=== PATIENT | male | born 1945 | race Caucasian/White ===

== ENCOUNTER 2018-03-04 08:49 | Inpatient (IN) | payer OTHER, MEDICARE ==
[2018-03-04 09:08] LABS: ABSOLUTE BASOPHILS # (AUTO) 0.1 10^3/uL (0.0-0.2); ABSOLUTE EOSINOPHILS # (AUTO) 0.1 10^3/uL (0.0-0.6); ABSOLUTE LYMPHOCYTES (AUTO) 0.8 10^3/uL (0.5-4.7); ABSOLUTE MONOCYTES (AUTO) 0.9 10^3/uL (0.1-1.4); ABSOLUTE NEUT (AUTO) 5.2 10^3/uL (1.7-8.2); EOSINOPHILS % (AUTO) 1.4 % (0-6); HEMATOCRIT 43.7 % (37.9-51.0); HEMOGLOBIN 15.4 g/dL (13.5-17.0); LYMPHOCYTES % (AUTO) 11.3 % (13-45); MEAN CORPUSCULAR HEMOGLOBIN 31.9 pg (27.0-33.4); MEAN CORPUSCULAR HGB CONC 35.2 g/dL (32.0-36.0); MEAN CORPUSCULAR VOLUME 91 fl (80-97); MONOCYTES % (AUTO) 13.2 % (3-13); PLATELET COUNT 360 10^3/uL (150-450); RED BLOOD COUNT 4.82 10^6/uL (4.35-5.55); RED CELL DISTRIBUTION WIDTH 14.5 % (11.5-14.0); SEGMENTED NEUTROPHILS % (AUTO) 73.1 % (42-78); TOTAL CELLS COUNTED % (AUTO) 100 %; WHITE BLOOD COUNT 7.1 10^3/uL (4.0-10.5)
--- NOTE | 2018-03-04 09:28 | RADIOLOGY REPORT (SQ) ---
EXAM DESCRIPTION: CHEST SINGLE VIEW COMPLETED DATE/TIME: 03/04/2018 9:06 am REASON FOR STUDY: bed 11 db COMPARISON: None. EXAM PARAMETERS: NUMBER OF VIEWS: One view. TECHNIQUE: Single frontal radiographic view of the chest acquired. RADIATION DOSE: NA LIMITATIONS: None. FINDINGS: LUNGS AND PLEURA: Increased interstitial markings in the mid and lower lungs could represe nt interstitial edema. Underlying pulmonary fibrosis could not be excluded. No pleural effusion. No pneumothorax. No dense consolidation worrisome for pneumonia. MEDIASTINUM AND HILAR STRUCTURES: No masses. Contour normal. HEART AND VASCULAR STRUCTURES: Mild cardiomegaly BONES: No acute findings. HARDWARE: None in the chest. OTHER: No other significant finding. IMPRESSION: Increased interstitial markings around the periphery of both lung bases. This could be due to pulmonary fibrosis rather than interstitial pulmonary edema. TECHNICAL DOCUMENTATION: JOB ID: [id number] [employer]- All Rights Reserved Reading location - IP/workstation name: [email or web address]
[2018-03-04 09:35] LABS: ALANINE AMINOTRANSFERASE 113 U/L (21-72); ALBUMIN 4.2 g/dL (3.5-5.0); ALKALINE PHOSPHATASE 120 U/L (38-126); ANION GAP 13 (5-19); ASPARTATE AMINO TRANSFERASE 69 U/L (17-59); BILIRUBIN,DIRECT 0.6 mg/dL (0.0-0.4); BILIRUBIN,TOTAL 0.6 mg/dL (0.2-1.3); BLOOD UREA NITROGEN 22 mg/dL (7-20); CALCIUM 9.7 mg/dL (8.4-10.2); CARBON DIOXIDE 23 mmol/L (22-30); CHLORIDE 96 mmol/L (98-107); CREATINE KINASE 258 U/L (55-170); GLUCOSE 128 mg/dL (75-110); POTASSIUM 4.2 mmol/L (3.6-5.0); SODIUM 131.9 mmol/L (137-145); TOTAL PROTEIN 9.2 g/dL (6.3-8.2)
[2018-03-04 09:47] LABS: CREATINE KINASE MB 3.06 ng/mL (<4.55); TROPONIN I 0.029 ng/mL
[2018-03-04] MEDS ORDERED: CEFTRIAXONE INJ 1000 MG VIAL IV ONE (10:48)
--- NOTE | 2018-03-04 10:49 | ER Document Report ---
ED Respiratory Problem - General Chief Complaint: Shortness Of Breath Stated Complaint: RESPIRATORY DISTRESS Time Seen by Provider: 03/04/18 10:37 Notes: Patient is here because she is having difficulty breathing and feeling short of breath. Patient says he has a history of COPD that was diagnosed about 7 years ago. He has been prescribed a Proventil inhaler, but says he is never used it. For the past 2-3 months he has been having increasing difficulty breathing and shortness of breath. He went to his local provider, the [place] [facility], who prescribed him a second inhaler to use once a day and he started that on Saturday , 4 days ago. His breathing has worsened. He has a cough with some congestion , mostly at night. Patient says he stopped smoking just 3 days ago. Denies any fever. Patient does not have a history of heart disease or heart failure although he does have high blood pressure. EMS noted when they arrived at the patient's home that his O2 sat was 91%, but when he got up to walk it went to 89%. When he arrived here, after having been on oxygen in route, his oxygen level was 90-92 %. And on 2 L, his oxygen level is in the mid 90s. - Related Data Allergies/Adverse Reactions: No Known Allergies Allergy (Unverified 03/04/18 08:57) Past Medical History - Social History Smoking Status: Former Smoker - Stopped 3 days ago. Chew tobacco use (# tins/day): No Frequency of alcohol use: None Drug Abuse: None Family History: Reviewed & Not Pertinent Patient has suicidal ideation: No Patient has homicidal ideation: No - Past Medical History Cardiac Medical History: Reports: Hx Hypertension Denies: Hx Atrial Fibrillation, Hx Congestive Heart Failure Pulmonary Medical History: Reports: Hx COPD Endocrine Medical History: Denies: Hx Diabetes Mellitus Type 1, Hx Diabetes Mellitus Type 2 Surgical Hx: Negative Review of Systems - Review of Systems Notes: REVIEW OF SYSTEMS: CONSTITUTIONAL : Denies fever. EENT: Denies eye, ear, nose or mouth or throat pain or other symptoms. CARDIOVASCULAR: Denies chest pain. No ankle or pretibial swelling. RESPIRATORY: See HPI. GASTROINTESTINAL: Denies abdominal pain or nausea, vomiting, or diarrhea. GENITOURINARY: Denies difficulty or painful urinating, urinary frequency, blood in urine. MUSCULOSKELETAL: Denies back or neck pain. Denies joint pain or swelling. No lower leg pain. SKIN: Denies rash or skin lesions. NEUROLOGICAL: Denies LOC or altered mental status. Denies headache. Denies sensory loss or motor deficits. ALL OTHER SYSTEMS REVIEWED AND NEGATIVE. Physical Exam - Vital signs Vitals: Pulse Ox 90 L 03/04/18 08:53 Interpretation: Hypoxic - Notes Notes: PHYSICAL EXAMINATION: GENERAL: Well-appearing, in no acute distress. O2 sat 90-92% on 2 L here. Had also been on O2 by EMS in transit here. HEAD: Atraumatic, normocephalic. EYES: Pupils equal round and reactive to light, extraocular movements intact. ENT: oropharynx clear without exudates. Moist mucous membranes. NECK: Normal range of motion, supple. LUNGS: Breath sounds with good air exchange bilaterally. Scattered rales and rhonchi and wheezes heard bilaterally, but primarily on the right side posteriorly. HEART: Regular rate and rhythm without murmurs. ABDOMEN: Soft, nontender. No guarding or rebound. No masses. BACK: No tenderness throughout entire back. EXTREMITIES: Normal range of motion without pain. Negative Homans bilaterally. No pretibial edema bilaterally. NEUROLOGICAL: Normal speech, normal gait. Normal sensory, motor, and reflex exams. Awake, alert, and oriented x3. Cranial nerves normal. PSYCH: Normal mood, normal affect. SKIN: Warm, dry, no rashes. Course - Re-evaluation Re-evalutation: 03/04/18 11:40 Discussed with hospitalist who will admit the patient for observation and nebulizer treatments for his hypoxia. - Vital Signs Vital signs: Temp Pulse Resp BP Pulse Ox 97.4 F 95 20 115/80 93 03/04/18 09:00 03/04/18 14:59 03/04/18 17:01 03/04/18 17:01 03/04/18 17:01 - Laboratory Result Diagrams: 03/04/18 08:20 03/04/18 08:20 Laboratory results interpreted by me: 03/04/18 03/04/18 08:20 08:20 RDW 14.5 H Lymphocytes % 11.3 L Monocytes % 13.2 H Sodium 131.9 L Chloride 96 L BUN 22 H Glucose 128 H Direct Bilirubin 0.6 H AST 69 H ALT 113 H Creatine Kinase 258 H Total Protein 9.2 H - Diagnostic Test Radiology results interpreted by me: 03/04/18 11:05 Chest x-ray shows increased interstitial markings in the mid and lower lungs which could represent interstitial edema. Pulmonary fibrosis is also a possibility. No prior x-rays are available for comparison. - EKG Interpretation by Wi EKG shows normal: Sinus rhythm Rate: Normal Rhythm: NSR Additional EKG results interpreted by me: 03/04/18 11:05 Patient has Q waves in the inferior leads suggestive of an age indeterminate posterior injury. Discharge - Discharge Clinical Impression: Dyspnea, COPD exacerbation, Hypoxia Condition: Stable Disposition: ADMITTED OBSERVATION Admitting Provider: Hospitalist Unit Admitted: Medical Floor
[2018-03-04] MEDS ORDERED: IPRATROPIUM/ALBUTEROL 0.5-2.5 MG/3 ML AMPUL NEB ONE ×2 (11:09→13:32)
[2018-03-04] MEDS ORDERED: METHYLPREDNISOLONE INJ 125 MG/2 ML SDV IV ONE (11:14)
[2018-03-04 12:25] LABS: APPEARANCE,URINE CLEAR; BILIRUBIN,URINE NEGATIVE (NEGATIVE); COLOR,URINE YELLOW; GLUCOSE, URINE NEGATIVE (NEGATIVE); KETONES,URINE NEGATIVE (NEGATIVE); LEUKOCYTE ESTERASE,URINE NEGATIVE (NEGATIVE); NITRITE,URINE NEGATIVE (NEGATIVE); PROTEIN,URINE NEGATIVE (NEGATIVE); URINE SPECIFIC GRAVITY 1.013
[2018-03-04] MEDS ORDERED: LEVALBUTEROL HCL NEB 0.63 MG/3 ML AMPUL NEB PRN (13:33)
[2018-03-04] MEDS: IPRATROPIUM/ALBUTEROL 0.5-2.5 MG/3 ML AMPUL NEB SCH ×2 (14:59→20:10)
[2018-03-04] MEDS ORDERED: ENOXAPARIN SODIUM INJ 30 MG/0.3 ML DISP.SYRIN SUBCUT ONE (15:00)
--- NOTE | 2018-03-04 15:37 | RADIOLOGY REPORT (SQ) ---
EXAM DESCRIPTION: CT CHEST WITHOUT COMPLETED DATE/TIME: 03/04/2018 2:39 pm REASON FOR STUDY: evaluate interstitial lung disease COMPARISON: Chest x-ray 03/04/2018 TECHNIQUE: CT scan performed of the chest without intravenous contrast. Images reviewed with lung, soft tissue and bone windows. Reconstructed coronal and sagittal MPR images reviewed. All images st ored on PACS. All CT scanners at this facility use dose modulation, iterative reconstruction, and/or weight based d osing when appropriate to reduce radiation dose to as low as reasonably achievable (ALARA). [facility]: Dose Right [facility]: CareDose [facility]: Dose Right [facility]: Teradose 4D [facility]: Smart Pneumoflex Systems RADIATION DOSE: CT Rad equipment meets quality standard of care and radiation dose reduction techniq ues were employed. CTDIvol: 11.1 mGy. DLP: 414 mGy-cm. mGy. LIMITATIONS: No technical limitations. FINDINGS: LUNGS AND PLEURA: Chronic interstitial changes most prominent peripherally and in the lung bases. There are some small pneumatoceles in the lower lobes. HILAR AND MEDIASTINAL STRUCTURES: There are scattered small mediastinal and hilar nodes with no true adenopathy. HEART AND VASCULAR STRUCTURES: No aneurysm. No pericardial effusion. Considerable coronary atherosc lerosis. UPPER ABDOMEN: No significant findings. Limited exam. THYROID AND OTHER SOFT TISSUES: No masses. No adenopathy. BONES: No significant finding. HARDWARE: None in the chest. OTHER: No other significant findings. 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 No acute c ardiopulmonary disease. TECHNICAL DOCUMENTATION: JOB ID: [id number] Quality ID # [id number]: Final reports with documentation of one or more dose reduction techniques (e.g., Au tomated exposure control, adjustment of the mA and/or kV according to patient size, use of iterative reconstruction technique) 2010 [employer]- All Rights Reserved Reading location - IP/workstation name: [email or web address]
[2018-03-04] MEDS: METHYLPREDNISOLONE INJ 40 MG/1 ML SDV IV SCH ×2 (18:59→23:27)
[2018-03-04] MEDS: TIOTROPIUM BROMIDE DPI 5 CAP/KIT (18 MCG/CAP) IH SCH (19:21)
[2018-03-04] MEDS ORDERED: ATENOLOL 50 MG TABLET PO ONE (20:00)
[2018-03-04] MEDS: SALMETEROL XINAFOATE DISKUS 50 MCG/1 DOSE 28 DOSE IH SCH (21:59)
[2018-03-04] MEDS: DOXYCYCLINE HYCLATE 100 MG TABLET PO SCH (22:00)
--- NOTE | 2018-03-04 23:37 | EKG REPORT ---
SEVERITY:- ABNORMAL ECG - SINUS RHYTHM PROBABLE POSTERIOR INFARCT BORDERLINE T ABNORMALITIES, INFERIOR LEADS : Confirmed by: Destiney Louie 04-Mar-2018 23:37:20
[2018-03-05] MEDS: IPRATROPIUM/ALBUTEROL 0.5-2.5 MG/3 ML AMPUL NEB SCH ×4 (02:00→19:57)
[2018-03-05] MEDS: METHYLPREDNISOLONE INJ 40 MG/1 ML SDV IV SCH ×4 (05:31→23:20)
[2018-03-05 05:48] LABS: ABSOLUTE LYMPHOCYTES (AUTO) 0.3 10^3/uL (0.5-4.7); ABSOLUTE MONOCYTES (AUTO) 0.2 10^3/uL (0.1-1.4); ABSOLUTE NEUT (AUTO) 5.4 10^3/uL (1.7-8.2); HEMATOCRIT 40.7 % (37.9-51.0); HEMOGLOBIN 14.4 g/dL (13.5-17.0); LYMPHOCYTES % (AUTO) 5.8 % (13-45); MEAN CORPUSCULAR HEMOGLOBIN 31.9 pg (27.0-33.4); MEAN CORPUSCULAR HGB CONC 35.4 g/dL (32.0-36.0); MEAN CORPUSCULAR VOLUME 90 fl (80-97); MONOCYTES % (AUTO) 3.4 % (3-13); PLATELET COUNT 236 10^3/uL (150-450); RED BLOOD COUNT 4.52 10^6/uL (4.35-5.55); RED CELL DISTRIBUTION WIDTH 14.3 % (11.5-14.0); SEGMENTED NEUTROPHILS % (AUTO) 90.8 % (42-78); TOTAL CELLS COUNTED % (AUTO) 100 %
[2018-03-05 06:12] LABS: ALANINE AMINOTRANSFERASE 132 U/L (21-72); ALBUMIN 4.1 g/dL (3.5-5.0); ALKALINE PHOSPHATASE 88 U/L (38-126); ASPARTATE AMINO TRANSFERASE 75 U/L (17-59); BILIRUBIN,DIRECT 0.5 mg/dL (0.0-0.4); BILIRUBIN,TOTAL 0.5 mg/dL (0.2-1.3); BLOOD UREA NITROGEN 21 mg/dL (7-20); CALCIUM 9.9 mg/dL (8.4-10.2); CARBON DIOXIDE 19 mmol/L (22-30); CHLORIDE 101 mmol/L (98-107); GLUCOSE 143 mg/dL (75-110); POTASSIUM 4.4 mmol/L (3.6-5.0); TOTAL PROTEIN 8.7 g/dL (6.3-8.2)
[2018-03-05 06:14] LABS: ANION GAP 14 (5-19)
--- NOTE | 2018-03-05 08:04 | PDOC H&P ---
History of Present Illness Admission Date/PCP: 03/04/18 11:44 DAKOTA SANCHEZ MD Patient complains of: SOB, DYSPNEA ON EXERTION History of Present Illness: ALBA MARCANO is a 72 year old male who presented to the emergency department with a 3-4 week history of SOB and dyspnea on exertion. The patient states his symptoms became increasingly worse over the last 3-4 days, which is what brought him to the hospital. The patient complains of shortness of breath with any movement, even rolling over in bed. He reports that he can only walk 6-10 steps before he becomes incredibly SOB and must stop to catch his breath. He denies coughing, chest pain, back pain, fever, chills, or dizziness. He denies symptoms when at rest, and states his symptoms do not keep him up at night. Of note, the patient went to see his PMD approximately 3 weeks ago for his symptoms of SOB, and his PMD prescribed Stilto inhaler. The patient states he never used it because he was afraid of the side effects it may cause (he was unable to name any symptoms specifically). The patient denies any ill contacts or recent infections (UTI, URI, etc.). PMH includes COPD, HTN, skin cancer (benign), and seasonal allergies While in the emergency department, the patient received 125mg SoluMedrol IV, 1G Rocephin, and 1 Duoneb treatment. His vital signs were relatively stable BP HR RR SPO2 T. The patient required supplemental oxygen for maintain SPO2>88%. Upon assessment, the patient is awake and oriented x 3. He is resting in bed on supplemental oxygen, able to answer all questions without pause. At the end of the conversation, he denied feeling short of breath, states "I can talk to anybody." Auscultation of the lung regalado reveal wheezing at the B/L bases. Plan to admit to hospitalist service for COPD exacerbation. Past Medical History Cardiac Medical History: Reports: Hypertension Denies: Atrial Fibrillation, Congestive Heart Failure Pulmonary Medical History: Reports: Chronic Obstructive Pulmonary Disease (COPD) Endocrine Medical History: Denies: Diabetes Mellitus Type 1, Diabetes Mellitus Type 2 Malignancy Medical History: Reports: Skin Cancer Past Surgical History Past Surgical History: Reports: Other - HERNIA REPAIR Social History Information Source: Patient Lives with: Alone Smoking Status: Current Every Day Smoker Cigarettes Packs Per Day: 0.5 Number of Years Smokin Last Time Smoked: 03/01/2018 Frequency of Alcohol Use: None Hx Recreational Drug Use: No Drugs: None Hx Prescription Drug Abuse: No - Advance Directive Resuscitation Status: Full Code Family History Family History: CAD, DM, Other - MOTHER - HEMORRHAGIC STROKE Parental Family History Reviewed: Yes Children Family History Reviewed: NA Sibling(s) Family History Reviewed.: Yes Medication/Allergy Home Medications: Albuterol Sulfate [Proventil Hfa] 1 puff IH QIDP PRN 03/04/18 Atenolol [Tenormin 100 mg Tablet] 100 mg PO QPM 03/04/18 Tiotropium Br/Olodaterol HCl [Stiolto Respimat Inhal [place]] 2 puff IH DAILY Allergies/Adverse Reactions: No Known Allergies Allergy (Unverified 03/04/18 08:57) Review of Systems All systems: reviewed and no additional remarkable complaints except as stated Physical Exam Vital Signs: Temp Pulse Resp BP Pulse Ox 97.4 F 95 20 115/80 93 03/04/18 09:00 03/04/18 14:59 03/04/18 17:01 03/04/18 17:01 03/04/18 17:01 General appearance: PRESENT: no acute distress Eye exam: PRESENT: conjunctiva pink, PERRLA Mouth exam: PRESENT: moist Teeth exam: PRESENT: poor dentation Neck exam: PRESENT: full ROM Respiratory exam: PRESENT: rhonchi, wheezes Cardiovascular exam: PRESENT: +S1, +S2 Pulses: PRESENT: normal radial pulses, normal dorsalis pedis pul GI/Abdominal exam: PRESENT: normal bowel sounds, soft. ABSENT: tenderness Rectal exam: PRESENT: deferred Extremities exam: PRESENT: full ROM Musculoskeletal exam: PRESENT: ambulatory - PATIENT REPORTS HE CAN ONLY WALK 6- 10 STEPS BEFORE EXPERIENCING SOB, full ROM Neurological exam: PRESENT: alert, awake, oriented to person, oriented to place , oriented to time, oriented to situation Psychiatric exam: PRESENT: appropriate affect Skin exam: PRESENT: dry, intact, pallor Results Laboratory Results: 03/04/18 11:56 Urine Color YELLOW Urine Appearance CLEAR Urine pH 7.0 Ur Specific [place] 1.013 Urine Protein NEGATIVE Urine Glucose (UA) NEGATIVE Urine Ketones NEGATIVE Urine Blood NEGATIVE Urine Nitrite NEGATIVE Ur Leukocyte Esterase NEGATIVE Urine WBC (Auto) 1 Urine RBC (Auto) 0 Impressions: Chest CT 03/04/18 00:00 IMPRESSION: 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 No acute cardiopulmonary disease. Chest X-Ray 03/04/18 08:52 IMPRESSION: Increased interstitial markings around the periphery of both lung bases. This could be due to pulmonary fibrosis rather than interstitial pulmonary edema. Status: Imported from PACS Assessment & Plan - Diagnosis (1) Acute respiratory failure Qualifiers: Respiratory failure complication: hypoxia Qualified Code(s): J96.01 - Acute respiratory failure with hypoxia Is this a current diagnosis for this admission?: Yes Plan: Patient presented with a 3-4 day history of SOB and dyspnea on exertion Respiratory distress likely the result of a COPD exacerbation triggered by a URI or seasonal allergies Patient admits to 50+ pack year smoking history Non-compliance with recent long acting inhaler prescription, Stiolto Supplemental oxygen for SPO2>88% CXR shows possible interstitial lung disease, plan for CT chest for further evaluation Admit to medical floor with continuous pulse oximetry Duoneb q6h scheduled Xopenex q4h PRN PFT pending Blood and sputum cultures pending Empiric antibiotic coverage for acute bronchitis the setting of COPD Pulmonary consulted Janet and Marcos (2) COPD exacerbation Is this a current diagnosis for this admission?: Yes Plan: Patient admits to 50+ pack year smoking history States he has not seen a manager regional but his PMD recently prescribed a new inhaler, Stiolto The patient reports he has not started using it because he is 'afraid of any side effects' it may cause Plan as above (3) Hypertension Qualifiers: Hypertension type: essential hypertension Qualified Code(s): I10 - Essential (primary) hypertension Is this a current diagnosis for this admission?: Yes Plan: Patient endorses history of HTN Resume home anti-hypertensive medication - Time Time Spent: 30 to 50 Minutes Smoking Cessation Education: 3 to 10 minutes Medications reviewed and adjusted accordingly: Yes Anticipated discharge: Home - Inpatient Certification Based on my medical assessment, after consideration of the patient's comorbidities, presenting symptoms, or acuity I expect that the services needed warrant INPATIENT care.: Yes I certify that my determination is in accordance with my understanding of Medicare's requirements for reasonable and necessary INPATIENT services [42 CFR 412.3e].: Yes Medical Necessity: Need for Nebulizer Therapy and Monitoring of Response, Risk of Complication if Not Cared For in Hospital
[2018-03-05] MEDS ORDERED: ATENOLOL 50 MG TABLET PO SCH (10:00)
[2018-03-05] MEDS ORDERED: (PENDING PHARMACY ID) (Atenolol [Tenormin 100 Mg Tablet] 100 MG) PO SCH (10:00)
[2018-03-05] MEDS: SALMETEROL XINAFOATE DISKUS 50 MCG/1 DOSE 28 DOSE IH SCH (10:33)
[2018-03-05] MEDS: DOXYCYCLINE HYCLATE 100 MG TABLET PO SCH ×2 (10:33→21:50)
[2018-03-05] MEDS: ENOXAPARIN SODIUM INJ 30 MG/0.3 ML DISP.SYRIN SUBCUT SCH (10:33)
--- NOTE | 2018-03-05 11:24 | PDOC CONSULTATION ---
Consultation Consult Date: 03/05/18 Attending physician:: OLI BALL Consult reason:: exacerbation COPD History of Present Illness Admission Date/PCP: 03/04/18 11:44 TAYLER MARES Patient complains of: Dyspnea History of Present Illness: ALBA MARCANO is a 72 year old male Past Medical History Cardiac Medical History: Reports: Hypertension Denies: Atrial Fibrillation, Congestive Heart Failure Pulmonary Medical History: Reports: Chronic Obstructive Pulmonary Disease (COPD) EENT Medical History: Denies: Cataracts, Nose Neurological Medical History: Denies: Migraine, Multiple Sclerosis Endocrine Medical History: Denies: Diabetes Mellitus Type 1, Diabetes Mellitus Type 2, Hyperthyroidism, Hypothyroidism Renal/ Medical History: Reports: Nephrolithiasis Denies: End Stage Renal Disease Malignancy Medical History: Reports: Skin Cancer GI Medical History: Denies: Crohn's Disease, Ulcerative Colitis Musculoskeltal Medical History: Denies: Fibromyalgia Psychiatric Medical History: Reports: Tobacco Dependency Hematology: Denies: Hemophilia, Sickle Cell Disease Infectious Medical History: Denies: Clostridium Difficile, HIV Past Surgical History Past Surgical History: Reports: Other - HERNIA REPAIR Social History Information Source: Patient, [facility] Records Lives with: Alone Smoking Status: Current Every Day Smoker Cigarettes Packs Per Day: 0.5 Number of Years Smokin Last Time Smoked: 03/01/2018 Passive smoke exposure as: Both Frequency of Alcohol Use: None Hx Recreational Drug Use: No Drugs: None Hx Prescription Drug Abuse: No Do you have pets?: No Have you had any respiratory illnesses as a child?: No Have you been exposed to any sick contacts recently?: No Have you had any recent respiratory illnesses?: No Have you travelled outside of [place] in the past 12 months?: No - Advance Directive Resuscitation Status: Full Code Family History Family History: CAD, DM, Other - MOTHER - HEMORRHAGIC STROKE Parental Family History Reviewed: Yes Children Family History Reviewed: Yes Sibling(s) Family History Reviewed.: Yes Medication/Allergy Home Medications: Albuterol Sulfate [Proventil Hfa] 1 puff IH QIDP PRN 03/04/18 Atenolol [Tenormin 100 mg Tablet] 100 mg PO QPM 03/04/18 Tiotropium Br/Olodaterol HCl [Stiolto Respimat Inhal [place]] 2 puff IH DAILY Allergies/Adverse Reactions: No Known Allergies Allergy (Unverified 03/04/18 08:57) Review of Systems Constitutional: ABSENT: chills, fever(s), headache(s), night sweats Eyes: ABSENT: visual disturbances Ears: ABSENT: hearing changes Nose, Mouth, and Throat: ABSENT: mouth pain, sore throat Cardiovascular: PRESENT: dyspnea on exertion. ABSENT: edema, orthropnea, palpitations Respiratory: PRESENT: cough, dyspnea. ABSENT: hemoptysis Gastrointestinal: PRESENT: abdominal pain, bloating, coffee ground emesis, diarrhea. ABSENT: dysphagia, heartburn, hematemesis, hematochezia, melena Genitourinary: PRESENT: nocturia. ABSENT: dysuria, hematuria Musculoskeletal: ABSENT: deformity Integumentary: ABSENT: pruritus, rash Neurological: ABSENT: abnormal gait, abnormal movements, abnormal speech, confusion, focal weakness, frequent falls, lack of coordination, memory loss Psychiatric: ABSENT: hallucinations, homidical ideation, suicidal ideation Endocrine: ABSENT: cold intolerance, heat intolerance, polydipsia, polyuria Hematologic/Lymphatic: ABSENT: easy bruising Allergic/Immunologic: ABSENT: seasonal rhinorrhea Physical Exam Vital Signs: Temp Pulse Resp BP Pulse Ox 97.5 F 75 14 120/67 96 03/05/18 00:27 03/05/18 08:41 03/05/18 08:41 03/05/18 00:27 03/05/18 08:41 Pulse Oximeter Continuous Start: 03/04/18 13: 42 Freq: RTQ4 Status: Active Document 03/05/18 08:41 [facility] (Rec: 03/05/18 08:56 [facility] [email or web address]) Pulse Oximetry Assessment Oxygen Saturation (92-100) 96 Oxygen Flow Rate (L/min) 2 Oxygen Delivery Method Nasal Cannula Fraction of Inspired Oxygen (FIO2) 28 Equipment Usage Equipment in Use Continuous SpO2 Machine # N 9 Intake & Output 03/04/18 03/05/18 03/06/18 06:59 06:59 06:59 Weight 86.6 kg General appearance: PRESENT: no acute distress, cooperative, disheveled Head exam: PRESENT: atraumatic, normocephalic Eye exam: PRESENT: conjunctiva pale, EOMI, PERRLA. ABSENT: nystagmus, periorbital swelling, scleral icterus Mouth exam: PRESENT: dry mucosa, neck supple, tongue midline Neck exam: ABSENT: carotid bruit, JVD, lymphadenopathy, thyromegaly, tracheal deviation, tracheostomy Respiratory exam: PRESENT: decreased breath sounds, prolonged expiratory phas, rales, rhonchi, unlabored, wheezes. ABSENT: retraction, stridor, tachypnea Cardiovascular exam: PRESENT: RRR, +S1, +S2 Pulses: PRESENT: normal radial pulses GI/Abdominal exam: PRESENT: normal bowel sounds, soft Extremities exam: PRESENT: full ROM. ABSENT: calf tenderness, clubbing, joint swelling Musculoskeletal exam: PRESENT: full ROM. ABSENT: deformity, dislocation Neurological exam: PRESENT: alert, awake Psychiatric exam: PRESENT: normal mood Skin exam: PRESENT: dry, warm Results Laboratory Results: 03/05/18 05:00 03/05/18 05:00 03/04/18 03/05/18 03/05/18 11:56 05:00 05:00 WBC 6.0 RBC 4.52 Hgb 14.4 Hct 40.7 MCV 90 MCH 31.9 MCHC 35.4 RDW 14.3 H Plt Count 236 Seg Neutrophils % 90.8 H Lymphocytes % 5.8 L Monocytes % 3.4 Eosinophils % 0.0 Basophils % 0.0 Absolute Neutrophils 5.4 Absolute Lymphocytes 0.3 L Absolute Monocytes 0.2 Absolute Eosinophils 0.0 Absolute Basophils 0.0 Sodium 134.0 L Potassium 4.4 Chloride 101 Carbon Dioxide 19 L Anion Gap 14 BUN 21 H Creatinine 0.89 Est GFR ( Amer) > 60 Est GFR (Non-Af Amer) > 60 Glucose 143 H Calcium 9.9 Total Bilirubin 0.5 AST 75 H ALT 132 H Alkaline Phosphatase 88 Total Protein 8.7 H Albumin 4.1 Urine Color YELLOW Urine Appearance CLEAR Urine pH 7.0 Ur Specific [place] 1.013 Urine Protein NEGATIVE Urine Glucose (UA) NEGATIVE Urine Ketones NEGATIVE Urine Blood NEGATIVE Urine Nitrite NEGATIVE Ur Leukocyte Esterase NEGATIVE Urine WBC (Auto) 1 Urine RBC (Auto) 0 03/05/18 05:00 NT-Pro-B Natriuret Pep 203 Impressions: Chest CT 03/04/18 00:00 IMPRESSION: 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 No acute cardiopulmonary disease. Chest X-Ray 03/04/18 08:52 IMPRESSION: Increased interstitial markings around the periphery of both lung bases. This could be due to pulmonary fibrosis rather than interstitial pulmonary edema. Assessment & Plan - Diagnosis (1) Acute respiratory failure Qualifiers: Respiratory failure complication: hypoxia Qualified Code(s): J96.01 - Acute respiratory failure with hypoxia Is this a current diagnosis for this admission?: Yes Plan: Supplemental oxygen long acting muscarinic agent, inhaled corticosteroid and daliresp (2) COPD exacerbation Is this a current diagnosis for this admission?: Yes Plan: limit medication to 1 long acting muscarinic agent,and 1 of beta agonist add inhaled corticosteroid and Daliresp (3) Hypertension Qualifiers: Hypertension type: essential hypertension Qualified Code(s): I10 - Essential (primary) hypertension Is this a current diagnosis for this admission?: Yes Plan: Stable at this time
[2018-03-05] MEDS ORDERED: BUDESONIDE NEB 0.5 MG/2 ML AMPUL NEB ONE (11:30)
[2018-03-05] MEDS ORDERED: ROFLUMILAST 500 MCG TABLET PO ONE (11:30)
[2018-03-05 12:08] LABS: ARTERIAL BLOOD BASE EXCESS -2.7 mmol/L; ARTERIAL BLOOD FIO2 1L; ARTERIAL BLOOD H2CO3 0.97 mmol/L (1.05-1.35); ARTERIAL BLOOD HCO3 20.6 mmol/L (20-26); ARTERIAL BLOOD PCO2 32.1 mmHg (35-45); ARTERIAL BLOOD PH 7.43 (7.35-7.45); ARTERIAL BLOOD PO2 105.1 mmHg (80-100); ARTERIAL BLOOD TOTAL CO2 21.6 mmol/L (23-27)
--- NOTE | 2018-03-05 14:24 | PULMONARY FUNCTION TEST ---
DATE OF SERVICE: 03/04/2018 THE VITAL CAPACITY IS SEVERELY DECREASED. THE EXPIRATORY FLOW RATES ARE SEVERELY DECREASED. THE FEV1/VC IS 89%, PREDICTED: 80% AFTER BRONCHODILATOR, EXPIRATORY FLOW RATES SHOW NO SIGNIFICANT CHANGE. IMPRESSION: PATIENT EFFORT WAS ADEQUATE. THERE IS A SEVERE RESTRICTIVE DEFECT. CC: OLI BALL NP > MTDD
[2018-03-05] MEDS: ATENOLOL 50 MG TABLET PO SCH (16:24)
--- NOTE | 2018-03-05 16:52 | Physician Advisory Note ---
Physician Advisor ProgressNote .: [facility] I have reviewed the medical record for this patient. Physician Advisor Statement: Please consider documenting, if you agree: 1. Continue to document "Acute bronchitis" in each note, unless documenting it has been ruled out. 2. Any evidence of increased work of breathing (retractions, accessory muscle use, ...) that supports dx of Ac Resp Failure. 3. "Idiopathic interstititial pneumonia" or "idiopathic pulmonary fibrosis" - UIP, found on CT, is defined as "a pattern of idiopathic interstitial PNA that usually represents idiopathic pulmonary fibrosis". 4. "Acute hyponatemia, suspect due to " 5. "tobacco abuse & dependence" Thanks! CK
[2018-03-05] MEDS: BUDESONIDE NEB 0.5 MG/2 ML AMPUL NEB SCH (19:57)
--- NOTE | 2018-03-05 22:21 | PDOC PROGRESS REPORT ---
Subjective Progress Note for:: 03/05/18 Subjective:: 72 y.o. male who presented to the ED with a 3 week history of SOB. Admitted to [facility] for COPD exacerbation. PMH includes COPD, HTN, skin cancer (benign), and seasonal allergies. Patient seen this morning on rounds. States he feels better than 24hrs ago. Patient still endorses dyspnea on exertion, nursing stafff states the patient becomes tachypnic and mildly hypoxic when ambulating in the room while on supplemental oxygen. Lungs are clear to auscultation. Awaiting PFT results and pulmonary consult. The patient expresses a great deal of concern about whether this hospital stay will be covered by his insurance. Reached out to Discharge Planning to meet with patient and discuss insurance coverage. Reason For Visit: COPD EXACERBATION Physical Exam Vital Signs: Temp Pulse Resp BP Pulse Ox 97.6 F 90 16 114/74 95 03/05/18 17:16 03/05/18 17:16 03/05/18 17:16 03/05/18 17:16 03/05/18 16:24 Pulse Oximeter Continuous Start: 03/04/18 13: 42 Freq: RTQ4 Status: Active Document 03/05/18 16:24 TPO (Rec: 03/05/18 16:25 TPO [email or web address]) Pulse Oximetry Assessment Oxygen Saturation (92-100) 95 Oxygen Flow Rate (L/min) 2 Oxygen Delivery Method Nasal Cannula Fraction of Inspired Oxygen (FIO2) 28 Equipment Usage Equipment in Use Continuous SpO2 Machine # 9 Intake & Output 03/04/18 03/05/18 03/06/18 06:59 06:59 06:59 Intake Total 500 Balance 500 Weight 86.6 kg General appearance: PRESENT: no acute distress Head exam: PRESENT: atraumatic Eye exam: PRESENT: conjunctiva pink, PERRLA Mouth exam: PRESENT: moist Teeth exam: PRESENT: poor dentation Neck exam: PRESENT: full ROM Respiratory exam: PRESENT: clear to auscultation dmitri, symmetrical, unlabored Pulses: PRESENT: normal radial pulses, normal dorsalis pedis pul Vascular exam: PRESENT: normal capillary refill GI/Abdominal exam: PRESENT: normal bowel sounds, soft. ABSENT: tenderness Rectal exam: PRESENT: deferred Extremities exam: PRESENT: full ROM Musculoskeletal exam: PRESENT: ambulatory, full ROM Neurological exam: PRESENT: alert, awake, oriented to person, oriented to place , oriented to time, oriented to situation Psychiatric exam: PRESENT: appropriate affect Skin exam: PRESENT: intact, pallor, warm Results Laboratory Results: 03/05/18 05:00 03/05/18 05:00 03/05/18 03/05/18 03/05/18 05:00 05:00 11:50 WBC 6.0 RBC 4.52 Hgb 14.4 Hct 40.7 MCV 90 MCH 31.9 MCHC 35.4 RDW 14.3 H Plt Count 236 Seg Neutrophils % 90.8 H Lymphocytes % 5.8 L Monocytes % 3.4 Eosinophils % 0.0 Basophils % 0.0 Absolute Neutrophils 5.4 Absolute Lymphocytes 0.3 L Absolute Monocytes 0.2 Absolute Eosinophils 0.0 Absolute Basophils 0.0 Carbonic Acid 0.97 L HCO3/H2CO3 Ratio 21:1 ABG pH 7.43 ABG pCO2 32.1 L ABG pO2 105.1 H ABG HCO3 20.6 ABG O2 Saturation 98.0 ABG Base Excess -2.7 FiO2 1L Sodium 134.0 L Potassium 4.4 Chloride 101 Carbon Dioxide 19 L Anion Gap 14 BUN 21 H Creatinine 0.89 Est GFR ( Amer) > 60 Est GFR (Non-Af Amer) > 60 Glucose 143 H Calcium 9.9 Total Bilirubin 0.5 AST 75 H ALT 132 H Alkaline Phosphatase 88 Total Protein 8.7 H Albumin 4.1 03/05/18 05:00 NT-Pro-B Natriuret Pep 203 Impressions: Chest CT 03/04/18 00:00 IMPRESSION: 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 No acute cardiopulmonary disease. Chest X-Ray 03/04/18 08:52 IMPRESSION: Increased interstitial markings around the periphery of both lung bases. This could be due to pulmonary fibrosis rather than interstitial pulmonary edema. Status: Imported from PACS Assessment & Plan - Diagnosis (1) Acute respiratory failure Qualifiers: Respiratory failure complication: hypoxia Qualified Code(s): J96.01 - Acute respiratory failure with hypoxia Is this a current diagnosis for this admission?: Yes Plan: Patient presented with a 3-4 day history of SOB and dyspnea on exertion Respiratory distress likely the result of a COPD exacerbation triggered by a URI or seasonal allergies Patient admits to 50+ pack year smoking history Non-compliance with recent long acting inhaler prescription, Stiolto Supplemental oxygen for SPO2>88% CXR shows possible interstitial lung disease, plan for CT chest for further evaluation Admit to medical floor with continuous pulse oximetry Duoneb q6h scheduled Xopenex q4h PRN IV solumedrol q6h PFT pending Blood and sputum cultures pending Empiric antibiotic coverage for acute bronchitis the setting of COPD Pulmonary consulted Janet and Marcos MOFFETT (2) COPD exacerbation Is this a current diagnosis for this admission?: Yes Plan: Patient admits to 50+ pack year smoking history States he has not seen a roller machine operator but his PMD recently prescribed a new inhaler, Stiolto The patient reports he has not started using it because he is 'afraid of any side effects' it may cause Plan as above (3) Bronchitis Is this a current diagnosis for this admission?: Yes Plan: Acute bronchitis as evidence by tachypnea, dyspnea, and hypoxia Empiric antibiotic coverage for acute bronchitis in a patient with known COPD CXR benign No leukocytosis and patient remains afebrile remaining plan as above (4) Hypertension Qualifiers: Hypertension type: essential hypertension Qualified Code(s): I10 - Essential (primary) hypertension Is this a current diagnosis for this admission?: Yes Plan: Patient endorses history of HTN Resume home anti-hypertensive medication (5) Tobacco abuse Is this a current diagnosis for this admission?: Yes Plan: Patient endorses 50 pack year smoking history Extensive counseling regarding smoking cessation encouraged Nicotine patch offered - Time Time Spent with patient: 15-24 minutes Medications reviewed and adjusted accordingly: Yes Anticipated discharge: Home - Inpatient Certification Based on my medical assessment, after consideration of the patient's comorbidities, presenting symptoms, or acuity I expect that the services needed warrant INPATIENT care.: Yes I certify that my determination is in accordance with my understanding of Medicare's requirements for reasonable and necessary INPATIENT services [42 CFR 412.3e].: Yes Medical Necessity: Need for Nebulizer Therapy and Monitoring of Response, Risk of Complication if Not Cared For in Hospital
[2018-03-05] MEDS ORDERED: NICOTINE 14 MG/24 HR PATCH.TD24 TD ONE (22:45)
[2018-03-06] MEDS: IPRATROPIUM/ALBUTEROL 0.5-2.5 MG/3 ML AMPUL NEB SCH ×4 (01:50→19:57)
[2018-03-06 05:04] LABS: HEMATOCRIT 40.8 % (37.9-51.0); HEMOGLOBIN 14.4 g/dL (13.5-17.0); MEAN CORPUSCULAR HEMOGLOBIN 31.8 pg (27.0-33.4); MEAN CORPUSCULAR HGB CONC 35.2 g/dL (32.0-36.0); MEAN CORPUSCULAR VOLUME 90 fl (80-97); PLATELET COUNT 275 10^3/uL (150-450); RED BLOOD COUNT 4.52 10^6/uL (4.35-5.55); RED CELL DISTRIBUTION WIDTH 14.5 % (11.5-14.0)
[2018-03-06 05:18] LABS: WHITE BLOOD COUNT 15.1 10^3/uL (4.0-10.5)
[2018-03-06 05:21] LABS: ANION GAP 15 (5-19); BLOOD UREA NITROGEN 22 mg/dL (7-20); CARBON DIOXIDE 20 mmol/L (22-30); CHLORIDE 100 mmol/L (98-107); GLUCOSE 139 mg/dL (75-110); PHOSPHORUS 4.3 mg/dL (2.5-4.5); SODIUM 135.1 mmol/L (137-145)
[2018-03-06] MEDS: METHYLPREDNISOLONE INJ 40 MG/1 ML SDV IV SCH ×3 (05:50→18:28)
[2018-03-06] MEDS: BUDESONIDE NEB 0.5 MG/2 ML AMPUL NEB SCH ×2 (07:19→19:57)
--- NOTE | 2018-03-06 10:34 | PDOC PROGRESS REPORT ---
Subjective Progress Note for:: 03/06/18 Subjective:: ABOUT THE SAME Reason For Visit: COPD EXACERBATION Physical Exam Vital Signs: Temp Pulse Resp BP Pulse Ox 97.3 F 88 18 129/72 H 97 03/06/18 08:15 03/06/18 08:15 03/06/18 08:15 03/06/18 08:15 03/06/18 07:20 Pulse Oximeter Continuous Start: 03/04/18 13: 42 Freq: RTQ4 Status: Active Document 03/06/18 07:20 [facility] (Rec: 03/06/18 07:42 [facility] [email or web address]) Pulse Oximetry Assessment Oxygen Saturation (92-100) 97 Oxygen Flow Rate (L/min) 2 Oxygen Delivery Method Nasal Cannula Fraction of Inspired Oxygen (FIO2) 28 Equipment Usage Equipment in Use Continuous SpO2 Machine # N 9 Intake & Output 03/05/18 03/06/18 03/07/18 06:59 06:59 06:59 Intake Total 860 Balance 860 Weight 86.6 kg 84.7 kg General appearance: PRESENT: no acute distress, cooperative, disheveled Head exam: PRESENT: atraumatic, normocephalic Eye exam: PRESENT: conjunctiva pale, EOMI. ABSENT: nystagmus, periorbital swelling, scleral icterus Mouth exam: PRESENT: dry mucosa, neck supple, tongue midline Neck exam: ABSENT: carotid bruit, JVD, lymphadenopathy, thyromegaly, tracheal deviation, tracheostomy Respiratory exam: PRESENT: decreased breath sounds, prolonged expiratory phas, rhonchi, unlabored, wheezes. ABSENT: rales, retraction, stridor, tachypnea Cardiovascular exam: PRESENT: RRR, +S1, +S2 Pulses: PRESENT: normal radial pulses GI/Abdominal exam: PRESENT: normal bowel sounds, soft Extremities exam: ABSENT: calf tenderness, clubbing, joint swelling Musculoskeletal exam: ABSENT: deformity, dislocation Neurological exam: PRESENT: alert, awake Psychiatric exam: PRESENT: flat affect Skin exam: PRESENT: dry, warm Results Laboratory Results: 03/06/18 04:49 03/06/18 04:49 03/05/18 03/06/18 03/06/18 11:50 04:49 04:49 WBC 15.1 H D RBC 4.52 Hgb 14.4 Hct 40.8 MCV 90 MCH 31.8 MCHC 35.2 RDW 14.5 H Plt Count 275 Carbonic Acid 0.97 L HCO3/H2CO3 Ratio 21:1 ABG pH 7.43 ABG pCO2 32.1 L ABG pO2 105.1 H ABG HCO3 20.6 ABG O2 Saturation 98.0 ABG Base Excess -2.7 FiO2 1L Sodium 135.1 L Potassium 4.0 Chloride 100 Carbon Dioxide 20 L Anion Gap 15 BUN 22 H Creatinine 0.86 Est GFR ( Amer) > 60 Est GFR (Non-Af Amer) > 60 Glucose 139 H Calcium 10.0 Phosphorus 4.3 Magnesium 2.4 H 03/05/18 05:00 NT-Pro-B Natriuret Pep 203 Impressions: Chest CT 03/04/18 00:00 IMPRESSION: 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 No acute cardiopulmonary disease. Chest X-Ray 03/04/18 08:52 IMPRESSION: Increased interstitial markings around the periphery of both lung bases. This could be due to pulmonary fibrosis rather than interstitial pulmonary edema. Assessment & Plan - Diagnosis (1) Acute respiratory failure Qualifiers: Respiratory failure complication: hypoxia Qualified Code(s): J96.01 - Acute respiratory failure with hypoxia Is this a current diagnosis for this admission?: Yes Plan: abg OK ON 1 L N/C (2) COPD exacerbation Is this a current diagnosis for this admission?: Yes Plan: UNCHANGED (3) Hypertension Qualifiers: Hypertension type: essential hypertension Qualified Code(s): I10 - Essential (primary) hypertension Is this a current diagnosis for this admission?: Yes Plan: Stable at this time
[2018-03-06] MEDS: ENOXAPARIN SODIUM INJ 30 MG/0.3 ML DISP.SYRIN SUBCUT SCH (10:42)
[2018-03-06] MEDS: DOXYCYCLINE HYCLATE 100 MG TABLET PO SCH ×2 (10:42→22:06)
[2018-03-06] MEDS: NICOTINE 14 MG/24 HR PATCH.TD24 TD SCH (10:43)
[2018-03-06] MEDS: ATENOLOL 50 MG TABLET PO SCH (18:25)
--- NOTE | 2018-03-06 21:12 | PDOC PROGRESS REPORT ---
Subjective Progress Note for:: 03/06/18 Subjective:: 72 y.o. male who presented to the ED with a 3 week history of SOB. Admitted to [facility] for COPD exacerbation. PMH includes COPD, HTN, skin cancer (benign), and seasonal allergies. Patient seen this morning on rounds. He is resting comfortably in bed on supplemental oxygen. Lungs are clear to auscultation. The patient was road tested today, he ambulated on and off supplemental oxygen. The patient became profoundly hypoxic (SPO2 80%) when ambulating without supplemental oxygen. After discussion with the patient, the decision was made to send him home on portable O2. Discharge planning aware, will need to wait for approval from [place]. Unable to discharge patient home until his home O2 has been approved. Reason For Visit: COPD EXACERBATION Physical Exam Vital Signs: Temp Pulse Resp BP Pulse Ox 97.7 F 93 18 118/88 H 93 03/06/18 15:49 03/06/18 15:49 03/06/18 15:49 03/06/18 15:49 03/06/18 13:46 Pulse Oximeter Continuous Start: 03/04/18 13: 42 Freq: RTQ4 Status: Active Document 03/06/18 12:00 [facility] (Rec: 03/06/18 12:40 [facility] [email or web address]) Pulse Oximetry Assessment Oxygen Saturation (92-100) 93 Oxygen Flow Rate (L/min) 2 Oxygen Delivery Method Nasal Cannula Equipment Usage Equipment in Use Continuous SpO2 Machine # 9 Intake & Output 03/05/18 03/06/18 03/07/18 06:59 06:59 06:59 Intake Total 860 Balance 860 Weight 86.6 kg 84.7 kg General appearance: PRESENT: disheveled Eye exam: PRESENT: conjunctiva pink, PERRLA Mouth exam: PRESENT: moist Teeth exam: PRESENT: poor dentation Neck exam: PRESENT: full ROM Respiratory exam: PRESENT: chest wall tenderness, symmetrical, unlabored Cardiovascular exam: PRESENT: +S1, +S2 Pulses: PRESENT: normal radial pulses, normal dorsalis pedis pul GI/Abdominal exam: PRESENT: normal bowel sounds, soft. ABSENT: tenderness Rectal exam: PRESENT: deferred Extremities exam: PRESENT: full ROM Musculoskeletal exam: PRESENT: ambulatory, full ROM Neurological exam: PRESENT: alert, awake, oriented to person, oriented to place , oriented to time, oriented to situation Skin exam: PRESENT: dry, intact, pallor Results Laboratory Results: 03/06/18 04:49 03/06/18 04:49 03/06/18 03/06/18 04:49 04:49 WBC 15.1 H D RBC 4.52 Hgb 14.4 Hct 40.8 MCV 90 MCH 31.8 MCHC 35.2 RDW 14.5 H Plt Count 275 Sodium 135.1 L Potassium 4.0 Chloride 100 Carbon Dioxide 20 L Anion Gap 15 BUN 22 H Creatinine 0.86 Est GFR ( Amer) > 60 Est GFR (Non-Af Amer) > 60 Glucose 139 H Calcium 10.0 Phosphorus 4.3 Magnesium 2.4 H 03/05/18 05:00 NT-Pro-B Natriuret Pep 203 Impressions: Chest CT 03/04/18 00:00 IMPRESSION: 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 No acute cardiopulmonary disease. Chest X-Ray 03/04/18 08:52 IMPRESSION: Increased interstitial markings around the periphery of both lung bases. This could be due to pulmonary fibrosis rather than interstitial pulmonary edema. Status: Imported from PACS Assessment & Plan - Diagnosis (1) Acute respiratory failure Qualifiers: Respiratory failure complication: hypoxia Qualified Code(s): J96.01 - Acute respiratory failure with hypoxia Is this a current diagnosis for this admission?: Yes Plan: Patient presented with a 3-4 day history of SOB and dyspnea on exertion Respiratory distress likely the result of a COPD exacerbation triggered by a URI or seasonal allergies Patient admits to 50+ pack year smoking history Non-compliance with recent long acting inhaler prescription, Stiolto Supplemental oxygen for SPO2>88% CXR shows possible interstitial lung disease, plan for CT chest for further evaluation Admit to medical floor with continuous pulse oximetry Duoneb q6h scheduled Xopenex q4h PRN IV solumedrol q6h PFT pending Blood cultures no growth. Sputum cultures growing Group F beta Strep Antibiotic coverage for acute bronchitis the setting of COPD Pulmonary consulted, no additional recommendations. Janet and Marcos Currently planning on discharging the patient home on supplemental oxygen. Without it, the patient becomes profoundly hypoxic (SPO2 80%). Discharge planning aware. Plan to discharge the patient home as soon as portable O2 is available. (2) COPD exacerbation Is this a current diagnosis for this admission?: Yes Plan: Patient admits to 50+ pack year smoking history States he has not seen a clothes wringer but his PMD recently prescribed a new inhaler, Stiolto The patient reports he has not started using it because he is 'afraid of any side effects' it may cause Plan as above (3) Bronchitis Is this a current diagnosis for this admission?: Yes Plan: Acute bronchitis as evidence by tachypnea, dyspnea, and hypoxia Empiric antibiotic coverage for acute bronchitis in a patient with known COPD CXR benign +leukocytosis and patient remains afebrile remaining plan as above (4) Hypertension Qualifiers: Hypertension type: essential hypertension Qualified Code(s): I10 - Essential (primary) hypertension Is this a current diagnosis for this admission?: Yes Plan: Patient endorses history of HTN Resume home anti-hypertensive medication (5) Tobacco abuse Is this a current diagnosis for this admission?: Yes Plan: Patient endorses 50 pack year smoking history Extensive counseling regarding smoking cessation encouraged Nicotine patch offered
[2018-03-07] MEDS: METHYLPREDNISOLONE INJ 40 MG/1 ML SDV IV SCH ×4 (01:44→17:30)
[2018-03-07] MEDS: IPRATROPIUM/ALBUTEROL 0.5-2.5 MG/3 ML AMPUL NEB SCH ×4 (02:31→19:50)
[2018-03-07 04:43] LABS: HEMATOCRIT 42.3 % (37.9-51.0); HEMOGLOBIN 14.6 g/dL (13.5-17.0); MEAN CORPUSCULAR HEMOGLOBIN 31.1 pg (27.0-33.4); MEAN CORPUSCULAR HGB CONC 34.5 g/dL (32.0-36.0); MEAN CORPUSCULAR VOLUME 90 fl (80-97); PLATELET COUNT 281 10^3/uL (150-450); RED BLOOD COUNT 4.68 10^6/uL (4.35-5.55); RED CELL DISTRIBUTION WIDTH 14.6 % (11.5-14.0); WHITE BLOOD COUNT 13.5 10^3/uL (4.0-10.5)
[2018-03-07 04:53] LABS: ANION GAP 11 (5-19); BLOOD UREA NITROGEN 30 mg/dL (7-20); CARBON DIOXIDE 25 mmol/L (22-30); CHLORIDE 99 mmol/L (98-107); GLUCOSE 113 mg/dL (75-110)
[2018-03-07] MEDS: BUDESONIDE NEB 0.5 MG/2 ML AMPUL NEB SCH ×2 (08:07→19:50)
[2018-03-07] MEDS: NICOTINE 14 MG/24 HR PATCH.TD24 TD SCH (10:12)
[2018-03-07] MEDS: ENOXAPARIN SODIUM INJ 30 MG/0.3 ML DISP.SYRIN SUBCUT SCH (10:17)
[2018-03-07] MEDS: DOXYCYCLINE HYCLATE 100 MG TABLET PO SCH ×2 (10:17→22:57)
[2018-03-07] MEDS: ATENOLOL 50 MG TABLET PO SCH (17:30)
--- NOTE | 2018-03-07 22:02 | PDOC PROGRESS REPORT ---
Subjective Progress Note for:: 03/07/18 Subjective:: 72 y.o. male who presented to the ED with a 3 week history of SOB. Admitted to [facility] for COPD exacerbation. PMH includes COPD, HTN, skin cancer (benign), and seasonal allergies. Patient seen this morning on rounds. He is resting comfortably in bed on supplemental oxygen. Lungs are clear to auscultation. Yesterday, the patient was road tested, he ambulated on and off supplemental oxygen. The patient became profoundly hypoxic (SPO2 80%) when ambulating without supplemental oxygen. The patient is waiting for approval from [place] for his home O2. Unable to discharge patient home until his home O2 has been approved. Reason For Visit: COPD EXACERBATION Physical Exam Vital Signs: Temp Pulse Resp BP Pulse Ox 98.0 F 74 18 110/63 94 03/07/18 16:00 03/07/18 19:50 03/07/18 19:50 03/07/18 16:00 03/07/18 19:50 Pulse Oximeter Continuous Start: 03/04/18 13: 42 Freq: RTQ4 Status: Active Document 03/07/18 19:50 [facility] (Rec: 03/07/18 20:47 [facility] [id number]) Pulse Oximetry Assessment Oxygen Saturation (92-100) 94 Oxygen Flow Rate (L/min) 2.0 Oxygen Delivery Method Nasal Cannula Fraction of Inspired Oxygen (FIO2) 28 Equipment Usage Equipment in Use Continuous SpO2 Machine # 9 Intake & Output 03/06/18 03/07/18 03/08/18 06:59 06:59 06:59 Intake Total 041 588 2332 Balance 076 536 9215 Weight 84.7 kg 84.7 kg General appearance: PRESENT: no acute distress Eye exam: PRESENT: conjunctiva pink, PERRLA Mouth exam: PRESENT: moist Teeth exam: PRESENT: poor dentation Neck exam: PRESENT: full ROM Respiratory exam: PRESENT: clear to auscultation dmitri, symmetrical, unlabored - REQUIRES SUPPLEMENTAL OXYGEN Cardiovascular exam: PRESENT: RRR, +S1, +S2 Pulses: PRESENT: normal radial pulses, normal dorsalis pedis pul GI/Abdominal exam: PRESENT: normal bowel sounds, soft. ABSENT: tenderness Rectal exam: PRESENT: deferred Extremities exam: PRESENT: full ROM Musculoskeletal exam: PRESENT: ambulatory, full ROM Neurological exam: PRESENT: alert, awake, oriented to person, oriented to place , oriented to time, oriented to situation Psychiatric exam: PRESENT: appropriate affect Skin exam: PRESENT: dry, intact, warm Results Laboratory Results: 03/07/18 04:20 03/07/18 04:20 03/07/18 03/07/18 04:20 04:20 WBC 13.5 H RBC 4.68 Hgb 14.6 Hct 42.3 MCV 90 MCH 31.1 MCHC 34.5 RDW 14.6 H Plt Count 281 Sodium 135.0 L Potassium 5.0 D Chloride 99 Carbon Dioxide 25 Anion Gap 11 BUN 30 H Creatinine 0.97 Est GFR ( Amer) > 60 Est GFR (Non-Af Amer) > 60 Glucose 113 H Calcium 10.0 Phosphorus 4.0 Magnesium 2.5 H 03/04/18 13:30 Sputum Gram Stain - Final 03/04/18 13:30 Sputum Sputum Culture - Final Group F Beta Streptococcus Normal Roxi 03/05/18 05:00 NT-Pro-B Natriuret Pep 203 Impressions: Chest CT 03/04/18 00:00 IMPRESSION: 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 No acute cardiopulmonary disease. Chest X-Ray 03/04/18 08:52 IMPRESSION: Increased interstitial markings around the periphery of both lung bases. This could be due to pulmonary fibrosis rather than interstitial pulmonary edema. Status: Imported from PACS Assessment & Plan - Diagnosis (1) Acute respiratory failure Qualifiers: Respiratory failure complication: hypoxia Qualified Code(s): J96.01 - Acute respiratory failure with hypoxia Is this a current diagnosis for this admission?: Yes Plan: Patient presented with a 3-4 day history of SOB and dyspnea on exertion Respiratory distress likely the result of a COPD exacerbation triggered by a URI or seasonal allergies Patient admits to 50+ pack year smoking history Non-compliance with recent long acting inhaler prescription, Stiolto Supplemental oxygen for SPO2>88% CXR shows possible interstitial lung disease, plan for CT chest for further evaluation Admit to medical floor with continuous pulse oximetry Duoneb q6h scheduled Xopenex q4h PRN IV solumedrol q6h PFT pending Blood cultures no growth. Sputum cultures growing Group F beta Strep Antibiotic coverage for acute bronchitis the setting of COPD Pulmonary consulted, no additional recommendations. Spiriva and Serevent [facility] Currently ready for discharge. Waiting for MD to approve home O2. Without it, the patient becomes profoundly hypoxic (SPO2 80%). Discharge planning aware. Plan to discharge the patient home as soon as portable O2 is available. 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 but his PMD recently prescribed a new inhaler, Stiolto The patient reports he has not started using it because he is 'afraid of any side effects' it may cause Plan as above (3) Bronchitis Is this a current diagnosis for this admission?: Yes Plan: Acute bronchitis as evidence by tachypnea, dyspnea, and hypoxia Empiric antibiotic coverage for acute bronchitis in a patient with known COPD CXR benign Leukocytosis improved and patient remains afebrile remaining plan as above (4) Hypertension Qualifiers: Hypertension type: essential hypertension Qualified Code(s): I10 - Essential (primary) hypertension Is this a current diagnosis for this admission?: Yes Plan: Patient endorses history of HTN Resume home anti-hypertensive medication Patient has remained relatively NORMOtensive (5) Tobacco abuse Is this a current diagnosis for this admission?: Yes Plan: Patient endorses 50 pack year smoking history Extensive counseling regarding smoking cessation encouraged Nicotine patch offered - Time Time Spent with patient: 15-24 minutes Medications reviewed and adjusted accordingly: Yes Anticipated discharge: Home - Inpatient Certification Based on my medical assessment, after consideration of the patient's comorbidities, presenting symptoms, or acuity I expect that the services needed warrant INPATIENT care.: Yes I certify that my determination is in accordance with my understanding of Medicare's requirements for reasonable and necessary INPATIENT services [42 CFR 412.3e].: Yes Medical Necessity: Risk of Complication if Not Cared For in Hospital - Plan Summary Plan Summary: DISCHARGE HOME SOON MD APPROVES HOME O2
[2018-03-08] MEDS: IPRATROPIUM/ALBUTEROL 0.5-2.5 MG/3 ML AMPUL NEB SCH ×4 (01:35→20:08)
[2018-03-08] MEDS: METHYLPREDNISOLONE INJ 40 MG/1 ML SDV IV SCH ×2 (06:07→14:45)
[2018-03-08] MEDS: BUDESONIDE NEB 0.5 MG/2 ML AMPUL NEB SCH ×2 (08:14→20:08)
[2018-03-08] MEDS: ENOXAPARIN SODIUM INJ 30 MG/0.3 ML DISP.SYRIN SUBCUT SCH (11:02)
[2018-03-08] MEDS: DOXYCYCLINE HYCLATE 100 MG TABLET PO SCH ×2 (11:02→21:26)
[2018-03-08] MEDS: NICOTINE 14 MG/24 HR PATCH.TD24 TD SCH (11:02)
--- NOTE | 2018-03-08 16:11 | PDOC PROGRESS REPORT ---
Subjective Progress Note for:: 03/08/18 Subjective:: 72 y.o. male who presented to the ED with a 3 week history of SOB. Admitted to [facility] for COPD exacerbation. PMH includes COPD, HTN, skin cancer (benign), and seasonal allergies. Patient seen this morning on rounds. He is resting comfortably in bed on supplemental oxygen. Lungs are clear to auscultation. The patient becomes profoundly hypoxic (SPO2 80%) when ambulating without supplemental oxygen. While on supplemental oxygen the patient is able to ambulate without becoming hypoxic or experiencing dyspnea. The patient is waiting for approval from [place] for his home O[place]. Unable to discharge patient home until his home O2 has been approved. Reason For Visit: COPD EXACERBATION Physical Exam Vital Signs: Temp Pulse Resp BP Pulse Ox 98.0 F 72 16 122/73 92 03/08/18 12:00 03/08/18 14:08 03/08/18 14:08 03/08/18 12:00 03/08/18 15:02 Pulse Oximeter Continuous Start: 03/04/18 13: 42 Freq: RTQ4 Status: Active Document 03/08/18 15:02 LDA (Rec: 03/08/18 15:03 LDA [email or web address]) Pulse Oximetry Assessment Oxygen Saturation (92-100) 92 Oxygen Flow Rate (L/min) 2 Oxygen Delivery Method Nasal Cannula Fraction of Inspired Oxygen (FIO2) 28 Equipment Usage Equipment in Use Continuous SpO2 Machine # 9 Intake & Output 03/07/18 03/08/18 03/09/18 06:59 06:59 06:59 Intake Total 613 1540 Balance 613 1540 Weight 84.7 kg 85 kg General appearance: PRESENT: no acute distress Eye exam: PRESENT: conjunctiva pink, PERRLA Mouth exam: PRESENT: moist Neck exam: PRESENT: full ROM Respiratory exam: PRESENT: clear to auscultation dmitri, symmetrical, unlabored Cardiovascular exam: PRESENT: +S1, +S2 Pulses: PRESENT: normal radial pulses, normal dorsalis pedis pul Vascular exam: PRESENT: normal capillary refill GI/Abdominal exam: PRESENT: normal bowel sounds, soft. ABSENT: tenderness Rectal exam: PRESENT: deferred Extremities exam: PRESENT: full ROM Musculoskeletal exam: PRESENT: ambulatory, full ROM Neurological exam: PRESENT: alert, awake, oriented to person, oriented to place , oriented to time, oriented to situation Psychiatric exam: PRESENT: appropriate affect Skin exam: PRESENT: dry, normal color Results Laboratory Results: 03/07/18 04:20 03/07/18 04:20 03/04/18 13:30 Sputum Gram Stain - Final 03/04/18 13:30 Sputum Sputum Culture - Final Group F Beta Streptococcus Normal Roxi 03/05/18 05:00 NT-Pro-B Natriuret Pep 203 Impressions: Chest CT 03/04/18 00:00 IMPRESSION: 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 No acute cardiopulmonary disease. Chest X-Ray 03/04/18 08:52 IMPRESSION: Increased interstitial markings around the periphery of both lung bases. This could be due to pulmonary fibrosis rather than interstitial pulmonary edema. Status: Imported from PACS Assessment & Plan - Diagnosis (1) Acute respiratory failure Qualifiers: Respiratory failure complication: hypoxia Qualified Code(s): J96.01 - Acute respiratory failure with hypoxia Is this a current diagnosis for this admission?: Yes Plan: Patient presented with a 3-4 day history of SOB and dyspnea on exertion Respiratory distress likely the result of a COPD exacerbation triggered by a URI or seasonal allergies Patient admits to 50+ pack year smoking history Non-compliance with recent long acting inhaler prescription, Stiolto Supplemental oxygen for SPO2>88% CXR shows possible interstitial lung disease, plan for CT chest for further evaluation Admit to medical floor with continuous pulse oximetry Duoneb q6h while awake Xopenex q4h PRN Weaned from IV solumedrol to PO prednisone Blood cultures no growth. Sputum cultures growing Group F beta Strep Antibiotic coverage for acute bronchitis the setting of COPD Pulmonary consulted, no additional recommendations. Will plan to follow up as outpatient post-discharge [facility] Currently ready for discharge. [place]ing for [place]. Without it, the patient becomes profoundly hypoxic (SPO2 80%). Discharge planning aware. Plan to discharge the patient home as soon as portable O2 is available. (2) COPD exacerbation Is this a current diagnosis for this admission?: Yes Plan: Patient admits to 50+ pack year smoking history States he has not seen a adult remedial education instructor but his PMD recently prescribed a new inhaler, Stiolto The patient reports he has not started using it because he is 'afraid of any side effects' it may cause Plan as above (3) Bronchitis Is this a current diagnosis for this admission?: Yes Plan: Acute bronchitis as evidence by tachypnea, dyspnea, and hypoxia Empiric antibiotic coverage for acute bronchitis in a patient with known COPD CXR benign Leukocytosis improved and patient remains afebrile remaining plan as above (4) Hypertension Qualifiers: Hypertension type: essential hypertension Qualified Code(s): I10 - Essential (primary) hypertension Is this a current diagnosis for this admission?: Yes Plan: Patient endorses history of HTN Resume home anti-hypertensive medication Patient has remained relatively NORMOtensive (5) Tobacco abuse Is this a current diagnosis for this admission?: Yes Plan: Patient endorses 50 pack year smoking history Extensive counseling regarding smoking cessation encouraged Nicotine patch offered - Time Time Spent with patient: 15-24 minutes Medications reviewed and adjusted accordingly: Yes Anticipated discharge: Home - Inpatient Certification Based on my medical assessment, after consideration of the patient's comorbidities, presenting symptoms, or acuity I expect that the services needed warrant INPATIENT care.: Yes I certify that my determination is in accordance with my understanding of Medicare's requirements for reasonable and necessary INPATIENT services [42 CFR 412.3e].: Yes Medical Necessity: Risk of Complication if Not Cared For in Hospital - Plan Summary Plan Summary: DISCHARGE HOME SOON [facility]IV[facility] HOME O2
[2018-03-08] MEDS: TIOTROPIUM BROMIDE DPI 5 CAP/KIT (18 MCG/CAP) IH SCH (17:06)
[2018-03-08] MEDS: ATENOLOL 50 MG TABLET PO SCH (17:06)
[2018-03-08] MEDS: PREDNISONE 20 MG TABLET PO SCH (17:07)
[2018-03-08] MEDS: SALMETEROL XINAFOATE DISKUS 50 MCG/1 DOSE 28 DOSE IH SCH (21:26)
[2018-03-09] MEDS: IPRATROPIUM/ALBUTEROL 0.5-2.5 MG/3 ML AMPUL NEB SCH (08:14)
[2018-03-09] MEDS: BUDESONIDE NEB 0.5 MG/2 ML AMPUL NEB SCH ×2 (08:14→19:48)
[2018-03-09] MEDS: SALMETEROL XINAFOATE DISKUS 50 MCG/1 DOSE 28 DOSE IH SCH ×2 (10:35→21:05)
[2018-03-09] MEDS: PREDNISONE 20 MG TABLET PO SCH ×3 (10:35→17:24)
[2018-03-09] MEDS: ENOXAPARIN SODIUM INJ 30 MG/0.3 ML DISP.SYRIN SUBCUT SCH (10:35)
[2018-03-09] MEDS: DOXYCYCLINE HYCLATE 100 MG TABLET PO SCH ×2 (10:35→21:05)
[2018-03-09] MEDS: NICOTINE 14 MG/24 HR PATCH.TD24 TD SCH (10:38)
[2018-03-09] MEDS ORDERED: ALBUTEROL SULFATE HFA (90 MCG/PUFF) 200 PUFF/8.5 GM MDI IH PRN (12:07)
[2018-03-09] MEDS ORDERED: IPRATROPIUM/ALBUTEROL 0.5-2.5 MG/3 ML AMPUL NEB PRN (12:07)
[2018-03-09] MEDS: TIOTROPIUM BROMIDE DPI 5 CAP/KIT (18 MCG/CAP) IH SCH (17:23)
[2018-03-09] MEDS: ATENOLOL 50 MG TABLET PO SCH (17:25)
--- NOTE | 2018-03-09 17:26 | PDOC PROGRESS REPORT ---
Subjective Progress Note for:: 03/09/18 Subjective:: 72 y.o. male who presented to the ED with a 3 week history of SOB. Admitted to [facility] for COPD exacerbation. PMH includes COPD, HTN, skin cancer (benign), and seasonal allergies. Patient seen this morning on rounds. He is resting comfortably in bed on supplemental oxygen. Lungs are clear to auscultation. The patient becomes profoundly hypoxic (SPO2 80%) when ambulating without supplemental oxygen. While on supplemental oxygen the patient is able to ambulate without becoming hypoxic or experiencing dyspnea. The patient is still waiting for approval from [place] for his home [place]. Unable to discharge patient home until his home O2 has been approved. Reason For Visit: COPD EXACERBATION Physical Exam Vital Signs: Temp Pulse Resp BP Pulse Ox 97.9 F 73 18 107/65 100 03/09/18 16:00 03/09/18 16:00 03/09/18 16:00 03/09/18 16:00 03/09/18 16:00 Pulse Oximeter Continuous Start: 03/04/18 13: 42 Freq: RTQ4 Status: Active Document 03/09/18 16:00 LDA (Rec: 03/09/18 16:27 LDA [email or web address]) Pulse Oximetry Assessment Equipment Usage Equipment Standby Continuous SpO2 Machine # 9 Intake & Output 03/08/18 03/09/18 03/10/18 06:59 06:59 06:59 Intake Total 1540 1823 Balance 1540 1823 Weight 85 kg 84 kg General appearance: PRESENT: no acute distress Eye exam: PRESENT: conjunctiva pink, PERRLA Mouth exam: PRESENT: moist Teeth exam: PRESENT: poor dentation Neck exam: PRESENT: full ROM Respiratory exam: PRESENT: clear to auscultation dmitri, symmetrical, unlabored Cardiovascular exam: PRESENT: +S1, +S2 Pulses: PRESENT: normal radial pulses, normal dorsalis pedis pul GI/Abdominal exam: PRESENT: normal bowel sounds, soft. ABSENT: tenderness Rectal exam: PRESENT: deferred Extremities exam: PRESENT: full ROM. 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 No acute cardiopulmonary disease. Chest X-Ray 03/04/18 08:52 IMPRESSION: Increased interstitial markings around the periphery of both lung bases. This could be due to pulmonary fibrosis rather than interstitial pulmonary edema. Status: Imported from PACS Assessment & Plan - Diagnosis (1) Acute respiratory failure Qualifiers: Respiratory failure complication: hypoxia Qualified Code(s): J96.01 - Acute respiratory failure with hypoxia Is this a current diagnosis for this admission?: Yes Plan: Resolved. The patient denies dyspnea or shortness of breath while on supplemental oxygen. Patient presented with a 3-4 day history of SOB and dyspnea on exertion Respiratory distress likely the result of a COPD exacerbation triggered by a URI or seasonal allergies Patient admits to 50+ pack year smoking history Non-compliance with recent long acting inhaler prescription, Stiolto Supplemental oxygen for SPO2>88% CXR shows possible interstitial lung disease, CT chest demonstrates chronic interstitial changes, mild pulmonary emphysema. No other acute cardiopulmonary pathology. Admit to medical floor with continuous pulse oximetry Duoneb q6h as needed Xopenex q4h PRN Weaned from IV solumedrol to PO prednisone Blood cultures no growth. Sputum cultures growing Group F beta Strep Antibiotic coverage for acute bronchitis the setting of COPD Pulmonary consulted, no additional recommendations. Will plan to follow up as outpatient post-discharge [facility] Currently ready for discharge. [place] for [place]. Without it, the patient becomes profoundly hypoxic (SPO2 80%). Discharge planning aware. Plan to discharge the patient home as soon as portable O2 is available. (2) COPD exacerbation Is this a current diagnosis for this admission?: Yes Plan: Patient admits to 50+ pack year smoking history States he has not seen a agency legal counsel but his PMD recently prescribed a new inhaler, Stiolto The patient reports he has not started using it because he is 'afraid of any side effects' it may cause Plan as above (3) Bronchitis Is this a current diagnosis for this admission?: Yes Plan: Acute bronchitis as evidence by tachypnea, dyspnea, and hypoxia Empiric antibiotic coverage for acute bronchitis in a patient with known COPD CXR benign Leukocytosis improved and patient remains afebrile remaining plan as above (4) Hypertension Qualifiers: Hypertension type: essential hypertension Qualified Code(s): I10 - Essential (primary) hypertension Is this a current diagnosis for this admission?: Yes Plan: Patient endorses history of HTN Resume home anti-hypertensive medication Patient has remained relatively NORMOtensive (5) Tobacco abuse Is this a current diagnosis for this admission?: Yes Plan: Patient endorses 50 pack year smoking history Extensive counseling regarding smoking cessation encouraged Nicotine patch offered - Time Time Spent with patient: 15-24 minutes Medications reviewed and adjusted accordingly: Yes Anticipated discharge: Home - Inpatient Certification Based on my medical assessment, after consideration of the patient's comorbidities, presenting symptoms, or acuity I expect that the services needed warrant INPATIENT care.: Yes I certify that my determination is in accordance with my understanding of Medicare's requirements for reasonable and necessary INPATIENT services [42 CFR 412.3e].: Yes Medical Necessity: Risk of Complication if Not Cared For in Hospital - Plan Summary Plan Summary: Discharge home with portable and home O2
[2018-03-10] MEDS: BUDESONIDE NEB 0.5 MG/2 ML AMPUL NEB SCH (08:09)
[2018-03-10 11:26] VITALS: BP 136/82
[2018-03-10] MEDS: NICOTINE 14 MG/24 HR PATCH.TD24 TD SCH (12:41)
[2018-03-10] MEDS: ENOXAPARIN SODIUM INJ 30 MG/0.3 ML DISP.SYRIN SUBCUT SCH (12:41)
[2018-03-10] MEDS: DOXYCYCLINE HYCLATE 100 MG TABLET PO SCH (12:41)
[2018-03-10] MEDS: SALMETEROL XINAFOATE DISKUS 50 MCG/1 DOSE 28 DOSE IH SCH (12:41)
[2018-03-10] MEDS: PREDNISONE 20 MG TABLET PO SCH (12:41)
--- NOTE | 2018-03-10 13:57 | PDOC PROGRESS REPORT ---
Subjective Progress Note for:: 03/07/18 Subjective:: ABOUT THE SAME Reason For Visit: COPD EXACERBATION Physical Exam Vital Signs: Temp Pulse Resp BP Pulse Ox 97.9 F 80 18 115/80 94 03/07/18 12:00 03/07/18 12:00 03/07/18 12:00 03/07/18 12:00 03/07/18 12:00 Pulse Oximeter Continuous Start: 03/04/18 13: 42 Freq: RTQ4 Status: Active Document 03/07/18 11:41 LDA (Rec: 03/07/18 11:41 LDA [email or web address]) Pulse Oximetry Assessment Oxygen Saturation (92-100) 92 Oxygen Flow Rate (L/min) 2 Oxygen Delivery Method Nasal Cannula Fraction of Inspired Oxygen (FIO2) 28 Equipment Usage Equipment in Use Continuous SpO2 Machine # 9 Intake & Output 03/06/18 03/07/18 03/08/18 06:59 06:59 06:59 Intake Total 860 613 Balance 860 613 Weight 84.7 kg 84.7 kg General appearance: PRESENT: no acute distress, cooperative, disheveled, well- developed, well-nourished Head exam: PRESENT: atraumatic, normocephalic Eye exam: PRESENT: conjunctiva pale, EOMI. ABSENT: nystagmus, periorbital swelling, scleral icterus Mouth exam: PRESENT: dry mucosa, neck supple, tongue midline Neck exam: ABSENT: carotid bruit, JVD, lymphadenopathy, thyromegaly, tracheal deviation, tracheostomy Respiratory exam: PRESENT: crackles, decreased breath sounds, prolonged expiratory phas, rhonchi, unlabored, wheezes. ABSENT: retraction, stridor Cardiovascular exam: PRESENT: RRR, +S1, systolic murmur Pulses: PRESENT: normal radial pulses GI/Abdominal exam: PRESENT: normal bowel sounds, soft Extremities exam: PRESENT: full ROM. ABSENT: calf tenderness, clubbing, joint swelling Musculoskeletal exam: PRESENT: full ROM. ABSENT: deformity, dislocation Neurological exam: PRESENT: alert, awake Psychiatric exam: PRESENT: flat affect Skin exam: PRESENT: dry, warm Results Laboratory Results: 03/07/18 04:20 03/07/18 04:20 03/07/18 03/07/18 04:20 04:20 WBC 13.5 H RBC 4.68 Hgb 14.6 Hct 42.3 MCV 90 MCH 31.1 MCHC 34.5 RDW 14.6 H Plt Count 281 Sodium 135.0 L Potassium 5.0 D Chloride 99 Carbon Dioxide 25 Anion Gap 11 BUN 30 H Creatinine 0.97 Est GFR ( Amer) > 60 Est GFR (Non-Af Amer) > 60 Glucose 113 H Calcium 10.0 Phosphorus 4.0 Magnesium 2.5 H 03/05/18 05:00 NT-Pro-B Natriuret Pep 203 Impressions: Chest CT 03/04/18 00:00 IMPRESSION: 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 No acute cardiopulmonary disease. Chest X-Ray 03/04/18 08:52 IMPRESSION: Increased interstitial markings around the periphery of both lung bases. This could be due to pulmonary fibrosis rather than interstitial pulmonary edema. Assessment & Plan - Diagnosis (1) Acute respiratory failure Qualifiers: Respiratory failure complication: hypoxia Qualified Code(s): J96.01 - Acute respiratory failure with hypoxia Is this a current diagnosis for this admission?: Yes Plan: Continues to improve (2) COPD exacerbation Is this a current diagnosis for this admission?: Yes Plan: UNCHANGED (3) Hypertension Qualifiers: Hypertension type: essential hypertension Qualified Code(s): I10 - Essential (primary) hypertension Is this a current diagnosis for this admission?: Yes Plan: Stable at this time
--- NOTE | 2018-03-10 13:59 | PDOC PROGRESS REPORT ---
Subjective Progress Note for:: 03/10/18 Subjective:: ABOUT THE SAME Reason For Visit: COPD EXACERBATION Physical Exam Vital Signs: Temp Pulse Resp BP Pulse Ox 97.5 F 80 16 136/82 H 96 03/10/18 11:23 03/10/18 11:23 03/10/18 11:23 03/10/18 11:23 03/10/18 11:23 Pulse Oximeter Continuous Start: 03/04/18 13: 42 Freq: RTQ4 Status: Discharge Document 03/10/18 11:53 LDA (Rec: 03/10/18 11:53 LDA [email or web address]) Pulse Oximetry Assessment Equipment Usage Equipment Standby Continuous SpO2 Machine # 9 Intake & Output 03/09/18 03/10/18 03/11/18 06:59 06:59 06:59 Intake Total 1823 2100 Balance 1823 2100 Weight 84 kg 84.6 kg General appearance: PRESENT: no acute distress, cooperative, disheveled Head exam: PRESENT: atraumatic Eye exam: PRESENT: conjunctiva pale, EOMI. ABSENT: nystagmus, periorbital swelling, scleral icterus Mouth exam: PRESENT: dry mucosa, neck supple, tongue midline Neck exam: ABSENT: carotid bruit, JVD, lymphadenopathy, thyromegaly, tracheal deviation, tracheostomy Respiratory exam: PRESENT: decreased breath sounds, prolonged expiratory phas, rhonchi, unlabored, wheezes. ABSENT: rales, retraction, stridor Cardiovascular exam: PRESENT: RRR, +S1, +S2 Pulses: PRESENT: normal radial pulses GI/Abdominal exam: PRESENT: normal bowel sounds, soft Extremities exam: PRESENT: full ROM. 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 No acute cardiopulmonary disease. Chest X-Ray 03/04/18 08:52 IMPRESSION: Increased interstitial markings around the periphery of both lung bases. This could be due to pulmonary fibrosis rather than interstitial pulmonary edema. Assessment & Plan - Diagnosis (1) Acute respiratory failure Qualifiers: Respiratory failure complication: hypoxia Qualified Code(s): J96.01 - Acute respiratory failure with hypoxia Is this a current diagnosis for this admission?: Yes Plan: Continues to improve (2) COPD exacerbation Is this a current diagnosis for this admission?: Yes Plan: Decreased breath sounds over the last 48 hours rare wheeze no rales or rhonchi (3) Hypertension Qualifiers: Hypertension type: essential hypertension Qualified Code(s): I10 - Essential (primary) hypertension Is this a current diagnosis for this admission?: Yes Plan: Stable at this time
--- NOTE | 2018-03-12 10:42 | PDOC DISCHARGE SUMMARY ---
<LIZA BALL - Last Filed: 03/12/18 10:34> General - Admit/Disc Date/PCP Admission Date/Primary Care Provider: 03/04/18 11:44 TAYLER MARES Discharge Date: 03/10/18 - Discharge Diagnosis (1) Acute respiratory failure Is this a current diagnosis for this admission?: Yes (2) COPD exacerbation Is this a current diagnosis for this admission?: Yes (3) Bronchitis Is this a current diagnosis for this admission?: Yes (4) Hypertension Is this a current diagnosis for this admission?: Yes (5) Tobacco abuse Is this a current diagnosis for this admission?: Yes - Additional Information Resuscitation Status: Full Code Discharge Diet: As Tolerated Discharge Activity: Activity As Tolerated Prescriptions: Nicotine [Nicoderm 14 mg/24 Hr Transdermal Patch] 1 each TD DAILY #30 patch.td24 Prednisone [Deltasone 20 mg Tablet] 20 mg PO DAILY #13 tablet Home Medications: Albuterol Sulfate [Proventil Hfa] 1 puff IH QIDP PRN 03/04/18 Atenolol [Tenormin 100 mg Tablet] 100 mg PO QPM 03/04/18 Tiotropium Br/Olodaterol HCl [Stiolto Respimat Inhal Erwin] 2 puff IH DAILY Albuterol Sulfate [Proair HFA Inhalation Aerosol 8.5 gm MDI] 2 puff IH Q4HP PRN hfa.aer.ad 03/10/18 Nicotine [Nicoderm 14 mg/24 Hr Transdermal Patch] 1 each TD DAILY #30 patch.td24 03/10/18 Prednisone [Deltasone 20 mg Tablet] 20 mg PO DAILY #13 tablet 03/10/18 History of Present Illness History of Present Illness: ALBA MARCANO is a 72 year old male who presented to the emergency department with a 3-4 week history of SOB and dyspnea on exertion. The patient states his symptoms became increasingly worse over the last 3-4 days, which is what brought him to the hospital. The patient complains of shortness of breath with any movement, even rolling over in bed. He reports that he can only walk 6-10 steps before he becomes incredibly SOB and must stop to catch his breath. He denies coughing, chest pain, back pain, fever, chills, or dizziness. He denies symptoms when at rest, and states his symptoms do not keep him up at night. Of note, the patient went to see his PMD approximately 3 weeks ago for his symptoms of SOB, and his PMD prescribed Stilto inhaler. The patient states he never used it because he was afraid of the side effects it may cause (he was unable to name any symptoms specifically). The patient denies any ill contacts or recent infections (UTI, URI, etc.). PMH includes COPD, HTN, skin cancer (benign), and seasonal allergies While in the emergency department, the patient received 125mg SoluMedrol IV, 1G Rocephin, and 1 Duoneb treatment. His vital signs were relatively stable BP HR RR SPO2 T. The patient required supplemental oxygen for maintain SPO2>88%. Upon assessment, the patient is awake and oriented x 3. He is resting in bed on supplemental oxygen, able to answer all questions without pause. At the end of the conversation, he denied feeling short of breath, states "I can talk to anybody." Auscultation of the lung regalado reveal wheezing at the B/L bases. Plan to admit to hospitalist service for COPD exacerbation. Hospital Course Hospital Course: 72 Y.O. MALE patient who presented with a 3-4 day history of SOB and dyspnea on exertion. The patient stated that his symptoms started approximately 3 weeks prior to arrival, but they were significantly worse during the 4 days leading up to his admission. Patient admits to 50+ pack year smoking history and non- compliance with recent long acting inhaler prescription, Stiolto. The patient stated he was concerned about 'side effects' from the inhaler, although he was not able to verbalize the specific side effects he was worried about. CXR showed possible interstitial lung disease, CT chest demonstrated chronic interstitial changes, mild pulmonary emphysema. No other acute cardiopulmonary pathology. He was admitted to a medical floor with continuous pulse oximetry with a diagnosis of acute on chronic COPD exacerbation. The patient's respiratory distress was likely the result of a COPD exacerbation triggered by a URI or seasonal allergies. He required continuous supplemental oxygen to maintain his SPO2 > 88%. He was treated with Duonebs, PRN xopenex, iv steroids, Spiriva and Serevent IH. He was empirically treated with doxycycline for acute bronchitis the setting of COPD. Sputum cultures positive for Group F beta Strep , blood cultures were negative. Pulmonary consulted, no additional recommendations. The patient was not able to wean from supplemental oxygen. He was routinely ambulated with and without oxygen, and he would consistently become hypoxic when ambulating without oxygen. The decision was made to discharge the patient on continuous O2, as well as close follow up with his PMD at the NH, and eventually a [facility] assisted living. Unfortunately, because the patient's primary insurance is through the NH, it took 4 days for his oxygen tank to be delivered. The patient remained at [facility] while waiting for his home O2 because without it, he would become profoundly hypoxic (SPO2 80%). The patient was discharged home with a prescription for prednisone (5 day taper) , ProAir rescue inhaler, and nicotine patches. He completed a 5 day course of empiric antibiotic treatment while at [facility], this was not continued post- discharge. The patient received extensive counseling about smoking cessation throughout the duration of his hospital stay. The discharge instructions were thoroughly explained to the patient, he stated understanding. Physical Exam Vital Signs: Temp Pulse Resp BP Pulse Ox 97.5 F 80 16 136/82 H 96 03/10/18 11:23 03/10/18 11:23 03/10/18 11:23 03/10/18 11:23 03/10/18 11:23 Pulse Oximeter Continuous Start: 03/04/18 13: 42 Freq: RTQ4 Status: Discharge Document 03/10/18 11:53 LDA (Rec: 03/10/18 11:53 [email or web address] [email or web address]) Pulse Oximetry Assessment Equipment Usage Equipment Standby Continuous SpO2 Machine # 9 Results Laboratory Results: 03/07/18 04:20 03/07/18 04:20 03/05/18 05:00 NT-Pro-B Natriuret Pep 203 Impressions: Chest CT 03/04/18 00:00 IMPRESSION: 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 No acute cardiopulmonary disease. Chest X-Ray 03/04/18 08:52 IMPRESSION: Increased interstitial markings around the periphery of both lung bases. This could be due to pulmonary fibrosis rather than interstitial pulmonary edema. Status: Imported from PACS Qualifiers - * PATIENT BEING DISCHARGED WITH ANY OF THE FOLLOWING DIAGNOSIS: No Plan Discharge Plan: DISCHARGE HOME WITH PORTABLE O2 TANK AND HOME O2 TANK. Time Spent: Greater than 30 Minutes <FERNANDO IRVING C - Last Filed: 03/12/18 16:03> General - Admit/Disc Date/PCP Admission Date/Primary Care Provider: 03/04/18 11:44 TAYLER MARES History of Present Illness History of Present Illness: ALBA MARCANO is a 72 year old male Physical Exam Vital Signs: Temp Pulse Resp BP Pulse Ox 97.5 F 80 16 136/82 H 96 03/10/18 11:23 03/10/18 11:23 03/10/18 11:23 03/10/18 11:23 03/10/18 11:23 Pulse Oximeter Continuous Start: 03/04/18 13: 42 Freq: RTQ4 Status: Discharge Document 03/10/18 11:53 LDA (Rec: 03/10/18 11:53 [email or web address] [email or web address]) Pulse Oximetry Assessment Equipment Usage Equipment Standby Continuous SpO2 Machine # 9 Results Laboratory Results: 03/07/18 04:20 03/07/18 04:20 03/05/18 05:00 NT-Pro-B Natriuret Pep 203 Impressions: Chest CT 03/04/18 00:00 IMPRESSION: 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 No acute cardiopulmonary disease. Chest X-Ray 03/04/18 08:52 IMPRESSION: Increased interstitial markings around the periphery of both lung bases. This could be due to pulmonary fibrosis rather than interstitial pulmonary edema. Plan Discharge Plan: Co signing note for Liza Ball NP
== END 2018-03-10 13:33 | disposition home or self-care (01) | DRG 189 ==
LOC: ER 08:49 → EH 11:44 → OBSVTOIN 11:44 → EH 12:56 → 5 17:45
PROVIDERS: ADMIT Internal Medicine; ATTEND Internal Medicine
DX: J96.01 Acute respiratory failure with hypoxia (principal); J44.1 Chronic obstructive pulmonary disease with (acute) exacerbation; J44.0 Chronic obstructive pulmonary disease with (acute) lower respiratory infection; J20.9 Acute bronchitis, unspecified; I10 Essential (primary) hypertension; B95.4 Other streptococcus as the cause of diseases classified elsewhere; F17.211 Nicotine dependence, cigarettes, in remission; Z79.51 Long term (current) use of inhaled steroids; Z79.899 Other long term (current) drug therapy; Z71.6 Tobacco abuse counseling
CPT/HCPCS: 36415; 36600; 71045; 71250; 80048; 80053; 81001; 82550; 82553; 82803; 83735; 83880; 84100; 84484; 85025; 85027; 87040; 87070; 87077; 87205; 93005; 93010; 94060; 94640; 94761; 94762; 96365; 96372; 96375; 99285; J0696; J1650; J2920; J2930; J3490; J7512; J7620

== ENCOUNTER 2018-03-22 15:08 | Inpatient (IN) | payer OTHER, MEDICARE ==
[2018-03-22] MEDS ORDERED: METHYLPREDNISOLONE INJ 125 MG/2 ML SDV IV ONE (15:27)
[2018-03-22] MEDS ORDERED: IPRATROPIUM/ALBUTEROL 0.5-2.5 MG/3 ML AMPUL NEB ONE (15:27)
--- NOTE | 2018-03-22 15:27 | ER Document Report ---
ED General - General Stated Complaint: SHORTNESS OF BREATH Time Seen by Provider: 03/22/18 15:12 Mode of Arrival: Medic Information source: Patient Notes: This is a 72-year-old man with a history of oxygen dependent COPD that presents to the emergency room with shortness of breath and wheezing. Patient was recently admitted for several days and treated with steroids, antibiotics and nebulizers. He states he felt great when he left the hospital and started having shortness of breath again after his prednisone was tapered. He denies any fever or productive cough. TRAVEL OUTSIDE OF THE [place] IN LAST 30 DAYS: No - HPI Onset: Last week Onset/Duration: Gradual Quality of pain: No pain Severity: None Pain Level: Denies Associated symptoms: Shortness of breath. denies: Chest pain, Fever Exacerbated by: Movement Relieved by: Remaining still Similar symptoms previously: Yes Recently seen / treated by doctor: Yes - Related Data Allergies/Adverse Reactions: No Known Allergies Allergy (Unverified 03/04/18 08:57) Past Medical History - General Information source: Patient - Social History Smoking Status: Former Smoker Cigarette use (# per day): No Chew tobacco use (# tins/day): No Frequency of alcohol use: None Drug Abuse: None Lives with: Alone Family History: CAD, DM, Other - MOTHER - HEMORRHAGIC STROKE Patient has suicidal ideation: No Patient has homicidal ideation: No - Past Medical History Cardiac Medical History: Reports: Hx Hypertension Denies: Hx Atrial Fibrillation, Hx Congestive Heart Failure Pulmonary Medical History: Reports: Hx COPD Neurological Medical History: Denies: Hx Migraine Endocrine Medical History: Denies: Hx Diabetes Mellitus Type 1, Hx Diabetes Mellitus Type 2, Hx Hyperthyroidism, Hx Hypothyroidism Renal/ Medical History: Denies: Hx End Stage Renal Disease, Hx Peritoneal Dialysis Malignancy Medical History: Reports Hx Skin Cancer GI Medical History: Denies: Hx Crohn's Disease, Hx Ulcerative Colitis Musculoskeltal Medical History: Denies Hx Fibromyalgia Infectious Medical History: Denies: Hx C-Diff, Hx HIV Past Surgical History: Reports: Other - HERNIA REPAIR Review of Systems - Review of Systems Constitutional: denies: Chills, Fever EENT: No symptoms reported Cardiovascular: No symptoms reported Respiratory: See HPI Gastrointestinal: No symptoms reported Genitourinary: No symptoms reported Male Genitourinary: No symptoms reported Musculoskeletal: No symptoms reported Skin: No symptoms reported Hematologic/Lymphatic: No symptoms reported Neurological/Psychological: No symptoms reported Physical Exam - Vital signs Vitals: Temp Pulse Ox 98.1 F 95 03/22/18 15:08 03/22/18 15:08 Notes: Physical exam: GENERAL: 72-year-old man, alert and oriented 3, no acute distress HEAD: Atraumatic, normocephalic. EYES: Pupils equal round and reactive to light, extraocular movements intact, sclera anicteric, conjunctiva are normal. ENT: TMs normal, nares patent, oropharynx clear without exudates. Moist mucous membranes. NECK: Normal range of motion, supple without obvious mass or JVD. LUNGS: Wheezes bilaterally HEART: Regular rate and rhythm without murmurs, rubs or gallops. ABDOMEN: Soft, normoactive bowel sounds. No tenderness to palpation. No guarding, no rebound. No masses appreciated. EXTREMITIES: Normal range of motion, no pitting or edema. No clubbing or cyanosis. NEUROLOGICAL: Cranial nerves II through XII grossly intact. Normal speech, moving all extremities. PSYCH: Normal mood, normal affect. SKIN: Warm, Dry, normal turgor, no rashes or lesions noted. Course - Vital Signs Vital signs: Temp Pulse Resp BP Pulse Ox 98.1 F 83 23 H 99/78 L 94 03/22/18 15:08 03/22/18 23:50 03/23/18 00:01 03/23/18 00:00 03/23/18 00:01 - Laboratory Result Diagrams: 03/22/18 14:45 03/22/18 16:00 Laboratory results interpreted by me: 03/22/18 03/22/18 14:45 16:00 WBC 10.6 H RDW 14.3 H Seg Neutrophils % 83.5 H Lymphocytes % 6.3 L Absolute Neutrophils 8.9 H Sodium 132.4 L Carbon Dioxide 20 L Direct Bilirubin 0.5 H ALT 79 H - Diagnostic Test Radiology reviewed: Image reviewed, Reports reviewed - Chest x-ray shows no obvious pneumonia Critical Care Note - Critical Care Note Total time excluding time spent on procedures (mins): 60 Discharge - Discharge Clinical Impression: Acute COPD exacerbation Condition: Serious Disposition: ADMITTED INPATIENT Admitting Provider: Hospitalist - Dr Pina Unit Admitted: Medical Floor
[2018-03-22 15:46] LABS: ABSOLUTE BASOPHILS # (AUTO) 0.1 10^3/uL (0.0-0.2); ABSOLUTE EOSINOPHILS # (AUTO) 0.3 10^3/uL (0.0-0.6); ABSOLUTE LYMPHOCYTES (AUTO) 0.7 10^3/uL (0.5-4.7); ABSOLUTE MONOCYTES (AUTO) 0.7 10^3/uL (0.1-1.4); ABSOLUTE NEUT (AUTO) 8.9 10^3/uL (1.7-8.2); BASOPHILS % (AUTO) 0.8 % (0-2); EOSINOPHILS % (AUTO) 2.4 % (0-6); HEMATOCRIT 43.3 % (37.9-51.0); HEMOGLOBIN 15.1 g/dL (13.5-17.0); LYMPHOCYTES % (AUTO) 6.3 % (13-45); MEAN CORPUSCULAR HEMOGLOBIN 31.4 pg (27.0-33.4); MEAN CORPUSCULAR HGB CONC 34.8 g/dL (32.0-36.0); MEAN CORPUSCULAR VOLUME 90 fl (80-97); PLATELET COUNT 229 10^3/uL (150-450); RED CELL DISTRIBUTION WIDTH 14.3 % (11.5-14.0); SEGMENTED NEUTROPHILS % (AUTO) 83.5 % (42-78); TOTAL CELLS COUNTED % (AUTO) 100 %; WHITE BLOOD COUNT 10.6 10^3/uL (4.0-10.5)
--- NOTE | 2018-03-22 16:00 | RADIOLOGY REPORT (SQ) ---
EXAM DESCRIPTION: CHEST SINGLE VIEW COMPLETED DATE/TIME: 03/22/2018 3:47 pm REASON FOR STUDY: sob COMPARISON: Chest CT and chest radiograph performed 03/04/2018 EXAM PARAMETERS: NUMBER OF VIEWS: One view. TECHNIQUE: Single frontal radiographic view of the chest acquired. RADIATION DOSE: NA LIMITATIONS: None. FINDINGS: LUNGS AND PLEURA: Re- demonstration of bibasilar peripheral interstitial markings, not sig nificantly changed from comparison imaging. No focal consolidation. No pneumothorax. No pleural ef fusion. MEDIASTINUM AND HILAR STRUCTURES: No masses. Stable contours. HEART AND VASCULAR STRUCTURES: Mild cardiomegaly. Normal vasculature. BONES: No acute findings. HARDWARE: None in the chest. OTHER: No other significant finding. IMPRESSION: Stable radiographic appearance of the chest demonstrating chronic interstitial lung dise ase better characterized on comparison CT performed 03/04/2018. No acute findings. TECHNICAL DOCUMENTATION: JOB ID: [id number] [employer]- All Rights Reserved Reading location - IP/workstation name: [email or web address]
[2018-03-22 16:41] LABS: ALANINE AMINOTRANSFERASE 79 U/L (21-72); ALBUMIN 3.7 g/dL (3.5-5.0); ALKALINE PHOSPHATASE 88 U/L (38-126); ANION GAP 12 (5-19); ASPARTATE AMINO TRANSFERASE 53 U/L (17-59); BILIRUBIN,DIRECT 0.5 mg/dL (0.0-0.4); BILIRUBIN,TOTAL 1.3 mg/dL (0.2-1.3); BLOOD UREA NITROGEN 16 mg/dL (7-20); CALCIUM 9.4 mg/dL (8.4-10.2); CARBON DIOXIDE 20 mmol/L (22-30); CHLORIDE 100 mmol/L (98-107); CREATINE KINASE 170 U/L (55-170); GLUCOSE 92 mg/dL (75-110); POTASSIUM 4.5 mmol/L (3.6-5.0); SODIUM 132.4 mmol/L (137-145); TOTAL PROTEIN 7.7 g/dL (6.3-8.2)
--- NOTE | 2018-03-22 16:51 | EKG REPORT ---
SEVERITY:- NORMAL ECG - SINUS RHYTHM : Confirmed by: Jorge Milan MD 22-Mar-2018 16:50:59
--- NOTE | 2018-03-22 16:55 | RADIOLOGY REPORT (SQ) ---
EXAM DESCRIPTION: CTA CHEST COMPLETED DATE/TIME: 03/22/2018 4:43 pm REASON FOR STUDY: sob COMPARISON: Chest radiograph 03/22/[address] chest 03/04/2018 TECHNIQUE: CT scan of the chest performed using helical scanning technique with dynamic intravenous contrast injection. Images reviewed with lung, soft tissue and bone windows. Reconstructed coronal and sagittal MPR images reviewed. Additional 3 dimensional post-processing performed to develop Maximal Intensity Projection images (IL P). All images stored on PACS. All CT scanners at this facility use dose modulation, iterative reconstruction, and/or weight based d osing when appropriate to reduce radiation dose to as low as reasonably achievable (ALARA). [facility]: Dose Right [facility]: CareDose [facility]: Dose Right [facility]: Teradose 4D [facility]: [employer] CONTRAST TYPE AND DOSE: contrast/concentration: Isovue 370.00 mg/ml; Total Contrast Delivered: 72.0 ml; Total Saline Delivered: 110.0 ml Contrast bolus optimized for the pulmonary arteries. Not diagnostic for the aorta. RENAL FUNCTION: BUN 30; creatinine 0.97 RADIATION DOSE: CT Rad equipment meets quality standard of care and radiation dose reduction techniq ues were employed. CTDIvol: 16.5 - 17.5 mGy. DLP: 629 mGy-cm. . LIMITATIONS: None. FINDINGS: LUNGS AND PLEURA: Re- demonstration of chronic interstitial changes in a peripheral distri bution as well a scattered pneumatoceles. No new focal consolidation. No pleural effusion. AORTA AND GREAT VESSELS: No aneurysm. Contrast bolus not optimized for the aorta. HEART: No pericardial effusion. Moderate to marked coronary artery calcifications. PULMONARY ARTERIES: No emboli visualized in the main pulmonary arteries or the segmental branches. HILAR AND MEDIASTINAL STRUCTURES: No masses or significant lymphadenopathy. HARDWARE: None in the chest. UPPER ABDOMEN: No significant findings. Limited exam. THYROID AND OTHER SOFT TISSUES: No masses. No adenopathy. BONES: No acute or significant finding. 3D MIPS: Confirm above findings. OTHER: No other significant finding. IMPRESSION: 1. No pulmonary emboli. 2. Stable CT appearance of the chest demonstrating both chronic interstitial changes as well as mild emphysematous changes. No acute findings. COMMENT: Quality ID # [id number]: Final reports with documentation of one or more dose reduction techniques (e.g., Automated exposure control, adjustment of the mA and/or kV according to patient size, use of iterative reconstruction technique) TECHNICAL DOCUMENTATION: JOB ID: [id number] [employer]- All Rights Reserved Reading location - IP/workstation name: [email or web address]
[2018-03-22 18:21] LABS: CREATINE KINASE MB 3.52 ng/mL (<4.55); TROPONIN I 0.028 ng/mL
[2018-03-22] MEDS ORDERED: ALBUTEROL SULFATE 0.083% NEB 2.5 MG/3 ML AMPUL NEB ONE (21:06)
[2018-03-22] MEDS ORDERED: ACETAMINOPHEN 325 MG TABLET PO PRN (21:40)
[2018-03-22] MEDS ORDERED: PROMETHAZINE HCL 25 MG TABLET PO PRN (21:40)
[2018-03-22] MEDS ORDERED: BUDESONIDE/FORMOTEROL 160-4.5 MCG 60 PUFF/6 GM MDI IH ONE (21:46)
--- NOTE | 2018-03-22 21:53 | PDOC H&P ---
History of Present Illness Admission Date/PCP: TAYLER MARES History of Present Illness: ALBA MARCANO is a 72 year old male patient presents with chief complaint of shortness of breath. Patient has chronic hypoxia due to end-stage lung disease and he has been on oxygen 24 7. Of note patient discharged from this hospital about 3 weeks ago after he was treated for the same complaint. His blood work is sent chest x-ray unremarkable. Patient denies fever palpitation, diaphoresis, nausea, vomiting or diarrhea. No urinary complaints. After he is treated with nebulizer he was about to be discharged by the ER attending but he is oxygen precipitously drops the moment he tries to walk. Patient requires nebulizer machine and solution at the time of discharge Past Medical History Cardiac Medical History: Reports: Hypertension Denies: Atrial Fibrillation, Congestive Heart Failure Pulmonary Medical History: Reports: Chronic Obstructive Pulmonary Disease (COPD) Neurological Medical History: Denies: Migraine Endocrine Medical History: Denies: Diabetes Mellitus Type 1, Diabetes Mellitus Type 2, Hyperthyroidism, Hypothyroidism Renal/ Medical History: Denies: End Stage Renal Disease Malignancy Medical History: Reports: Skin Cancer GI Medical History: Denies: Crohn's Disease, Ulcerative Colitis Musculoskeltal Medical History: Denies: Fibromyalgia Hematology: Denies: Hemophilia, Sickle Cell Disease Infectious Medical History: Denies: Clostridium Difficile, HIV Past Surgical History Past Surgical History: Reports: Other - HERNIA REPAIR Social History Smoking Status: Former Smoker Frequency of Alcohol Use: None Hx Recreational Drug Use: No Drugs: None Hx Prescription Drug Abuse: No - Advance Directive Resuscitation Status: Full Code Family History Family History: CAD, DM, Other - MOTHER - HEMORRHAGIC STROKE Parental Family History Reviewed: Yes Children Family History Reviewed: Yes Sibling(s) Family History Reviewed.: Yes Medication/Allergy Home Medications: Atenolol [Tenormin 100 mg Tablet] 100 mg PO QHS 03/04/18 Tiotropium Br/Olodaterol HCl [Stiolto Respimat Inhal Verdi] 2 puff IH DAILY Albuterol Sulfate [Proair HFA Inhalation Aerosol 8.5 gm MDI] 2 puff IH Q4HP PRN hfa.aer.ad 03/10/18 Allergies/Adverse Reactions: No Known Allergies Allergy (Unverified 03/04/18 08:57) Review of Systems Constitutional: PRESENT: as per HPI Eyes: PRESENT: as per HPI Cardiovascular: PRESENT: as per HPI Respiratory: PRESENT: as per HPI Gastrointestinal: PRESENT: as per HPI Musculoskeletal: PRESENT: as per HPI Neurological: PRESENT: as per HPI Physical Exam Vital Signs: Temp Pulse Resp BP Pulse Ox 98.1 F 25 H 103/67 96 03/22/18 15:08 03/22/18 21:01 03/22/18 21:00 03/22/18 21:01 Intake & Output 03/21/18 03/22/18 03/23/18 06:59 06:59 06:59 Weight 80.3 kg General appearance: PRESENT: mild distress Head exam: PRESENT: atraumatic, normocephalic Ear exam: PRESENT: normal external ear exam Neck exam: ABSENT: carotid bruit, JVD, lymphadenopathy, thyromegaly Respiratory exam: PRESENT: wheezes Cardiovascular exam: PRESENT: RRR. ABSENT: diastolic murmur, rubs, systolic murmur GI/Abdominal exam: PRESENT: normal bowel sounds, soft. ABSENT: distended, guarding, mass, organolmegaly, rebound, tenderness Neurological exam: PRESENT: alert, awake, oriented to time, oriented to situation Psychiatric exam: PRESENT: normal mood Results Laboratory Results: 03/22/18 14:45 03/22/18 16:00 03/22/18 03/22/18 03/22/18 14:45 14:45 14:45 WBC 10.6 H RBC 4.80 Hgb 15.1 Hct 43.3 MCV 90 MCH 31.4 MCHC 34.8 RDW 14.3 H Plt Count 229 Seg Neutrophils % 83.5 H Lymphocytes % 6.3 L Monocytes % 7.0 Eosinophils % 2.4 Basophils % 0.8 Absolute Neutrophils 8.9 H Absolute Lymphocytes 0.7 Absolute Monocytes 0.7 Absolute Eosinophils 0.3 Absolute Basophils 0.1 Sodium Cancelled Potassium Cancelled Chloride Cancelled Carbon Dioxide Cancelled Anion Gap Cancelled BUN Cancelled Creatinine Cancelled Est GFR ( Amer) Cancelled Est GFR (Non-Af Amer) Cancelled Glucose Cancelled Calcium Cancelled Magnesium Cancelled Total Bilirubin Cancelled AST Cancelled ALT Cancelled Alkaline Phosphatase Cancelled Total Protein Cancelled Albumin Cancelled 03/22/18 16:00 WBC RBC Hgb Hct MCV MCH MCHC RDW Plt Count Seg Neutrophils % Lymphocytes % Monocytes % Eosinophils % Basophils % Absolute Neutrophils Absolute Lymphocytes Absolute Monocytes Absolute Eosinophils Absolute Basophils Sodium 132.4 L Potassium 4.5 Chloride 100 Carbon Dioxide 20 L Anion Gap 12 BUN 16 Creatinine 0.81 Est GFR ( Amer) > 60 Est GFR (Non-Af Amer) > 60 Glucose 92 Calcium 9.4 Magnesium 2.2 Total Bilirubin 1.3 AST 53 ALT 79 H Alkaline Phosphatase 88 Total Protein 7.7 Albumin 3.7 03/22/18 03/22/18 03/22/18 14:45 14:45 16:00 Creatine Kinase Cancelled 170 CK-MB (CK-2) Cancelled Troponin I Cancelled 03/22/18 03/22/18 17:20 19:38 Creatine Kinase CK-MB (CK-2) 3.52 Troponin I 0.028 0.023 Impressions: Chest X-Ray 03/22/18 15:24 IMPRESSION: Stable radiographic appearance of the chest demonstrating chronic interstitial lung disease better characterized on comparison CT performed 2017. No acute findings. Chest/Abdomen CTA 03/22/18 16:19 IMPRESSION: 1. No pulmonary emboli. 2. Stable CT appearance of the chest demonstrating both chronic interstitial changes as well as mild emphysematous changes. No acute findings. Assessment & Plan - Diagnosis (1) COPD exacerbation Is this a current diagnosis for this admission?: Yes Plan: Patient has been on supplemental oxygen, bronchodilators, Solu-Medrol and Symbicort. (2) Hypertension Qualifiers: Hypertension type: essential hypertension Qualified Code(s): I10 - Essential (primary) hypertension Is this a current diagnosis for this admission?: Yes Plan: Continue his home medications.
[2018-03-22] MEDS ORDERED: AZITHROMYCIN INJ 500 MG VIAL IV PRN (21:58)
[2018-03-22] MEDS ORDERED: TIOTROPIUM BROMIDE DPI 5 CAP/KIT (18 MCG/CAP) IH ONE (22:00)
[2018-03-22] MEDS ORDERED: AZITHROMYCIN 500 MG in DEXTROSE 5%-WATER 250 ML IV ONE (22:00)
[2018-03-22 22:17] LABS: ARTERIAL BLOOD BASE EXCESS -3.5 mmol/L; ARTERIAL BLOOD H2CO3 0.98 mmol/L (1.05-1.35); ARTERIAL BLOOD HCO3 20.2 mmol/L (20-26); ARTERIAL BLOOD O2 SATURATION 97.2 % (94-98); ARTERIAL BLOOD PCO2 32.7 mmHg (35-45); ARTERIAL BLOOD PH 7.41 (7.35-7.45); ARTERIAL BLOOD PO2 91.9 mmHg (80-100); ARTERIAL BLOOD TOTAL CO2 21.2 mmol/L (23-27)
[2018-03-22 22:20] LABS: ARTERIAL BLOOD FIO2 4L
[2018-03-22] MEDS: IPRATROPIUM/ALBUTEROL 0.5-2.5 MG/3 ML AMPUL NEB SCH (23:49)
[2018-03-23] MEDS: METHYLPREDNISOLONE INJ 40 MG/1 ML SDV IV SCH ×5 (01:08→23:12)
[2018-03-23] MEDS: IPRATROPIUM/ALBUTEROL 0.5-2.5 MG/3 ML AMPUL NEB SCH ×5 (03:52→20:12)
[2018-03-23 05:15] LABS: ANION GAP 14 (5-19); BLOOD UREA NITROGEN 19 mg/dL (7-20); CALCIUM 9.8 mg/dL (8.4-10.2); CARBON DIOXIDE 23 mmol/L (22-30); CHLORIDE 97 mmol/L (98-107); GLUCOSE 147 mg/dL (75-110); POTASSIUM 4.4 mmol/L (3.6-5.0); SODIUM 134.3 mmol/L (137-145)
[2018-03-23] MEDS: LANSOPRAZOLE 30 MG TAB.RAP.DR PO SCH (05:37)
[2018-03-23] MEDS ORDERED: AZITHROMYCIN 500 MG in DEXTROSE 5%-WATER 250 ML IV SCH ×2 (10:00→22:00)
[2018-03-23] MEDS: TIOTROPIUM BROMIDE DPI 5 CAP/KIT (18 MCG/CAP) IH SCH (10:04)
[2018-03-23] MEDS: ENOXAPARIN SODIUM INJ 40 MG/0.4 ML DISP.SYRIN SUBCUT SCH (10:05)
[2018-03-23] MEDS ORDERED: SALMETEROL XINAFOATE DISKUS 50 MCG/1 DOSE 28 DOSE IH ONE (21:44)
[2018-03-23] MEDS ORDERED: ATENOLOL 50 MG TABLET ONE (21:44)
[2018-03-23] MEDS: ATENOLOL 50 MG TABLET PO SCH (21:54)
[2018-03-23] MEDS: SALMETEROL XINAFOATE DISKUS 50 MCG/1 DOSE 28 DOSE IH SCH (21:54)
[2018-03-24] MEDS: IPRATROPIUM/ALBUTEROL 0.5-2.5 MG/3 ML AMPUL NEB SCH ×5 (00:20→19:14)
[2018-03-24] MEDS: LANSOPRAZOLE 30 MG TAB.RAP.DR PO SCH (05:32)
[2018-03-24] MEDS: METHYLPREDNISOLONE INJ 40 MG/1 ML SDV IV SCH ×3 (05:37→21:29)
--- NOTE | 2018-03-24 06:06 | PDOC PROGRESS REPORT ---
Subjective Progress Note for:: 03/23/18 Subjective:: 72 y.o. M with a PMH of COPD (on home O2) and HTN was admitted for shortness of breath. Of note, the patient was recently discharged on 03/12/2018 following hospitalization for a COPD exacerbation. The patient states he began to feel increasingly short of breath once he finished his PO steroid taper. Patient seen this morning on rounds, he is resting comfortably in bed on supplemental oxygen. Lungs clear to auscultation. Patient is able to answer all questions appropriately without pause. Reason For Visit: COPD EXACERBATION Physical Exam Vital Signs: Temp Pulse Resp BP Pulse Ox 97.3 F 77 16 105/60 95 03/23/18 23:40 03/24/18 04:20 03/24/18 04:20 03/23/18 23:40 03/24/18 04:20 Intake & Output 03/22/18 03/23/18 03/24/18 06:59 06:59 06:59 Intake Total 439 1429 Balance 439 1429 Weight 79.379 kg General appearance: PRESENT: no acute distress, thin, well-developed, well- nourished Head exam: PRESENT: atraumatic, normocephalic Eye exam: PRESENT: conjunctiva pink, EOMI, PERRLA. ABSENT: scleral icterus Ear exam: PRESENT: normal external ear exam Mouth exam: PRESENT: moist, tongue midline Neck exam: ABSENT: carotid bruit, JVD, lymphadenopathy, thyromegaly Respiratory exam: PRESENT: clear to auscultation dmitri, symmetrical, unlabored. ABSENT: rales, rhonchi, wheezes Cardiovascular exam: PRESENT: RRR. ABSENT: diastolic murmur, rubs, systolic murmur Pulses: PRESENT: normal dorsalis pedis pul Vascular exam: PRESENT: normal capillary refill GI/Abdominal exam: PRESENT: normal bowel sounds, soft. ABSENT: distended, guarding, mass, organolmegaly, rebound, tenderness Rectal exam: PRESENT: deferred Extremities exam: PRESENT: full ROM. ABSENT: calf tenderness, clubbing, pedal edema Neurological exam: PRESENT: alert, awake, oriented to person, oriented to place , oriented to time, oriented to situation Psychiatric exam: PRESENT: appropriate affect, normal mood Skin exam: PRESENT: dry, intact, warm. ABSENT: cyanosis, rash Results Impressions: Chest X-Ray 03/22/18 15:24 IMPRESSION: Stable radiographic appearance of the chest demonstrating chronic interstitial lung disease better characterized on comparison CT performed 2017. No acute findings. Chest/Abdomen CTA 03/22/18 16:19 IMPRESSION: 1. No pulmonary emboli. 2. Stable CT appearance of the chest demonstrating both chronic interstitial changes as well as mild emphysematous changes. No acute findings. Status: Imported from PACS Assessment & Plan - Diagnosis (1) COPD exacerbation Is this a current diagnosis for this admission?: Yes Plan: Patient presents with SOB, no complaints of cough or wheezing CXR shows chronic COPD changes, no infiltrates or other pathology CTA shows chronic interstitial changes, no other significant cardiopulmonary pathology Supplemental oxygen for SPO2>88% DUOnebs and Xopenex scheduled IV Solumedrol Mucinex 600mg po bid Azithromycin for empiric antibiotic coverage [facility] consulted, appreciate their recommendations (2) Dyspnea Is this a current diagnosis for this admission?: Yes Plan: plan as above (3) Hypertension Qualifiers: Hypertension type: essential hypertension Qualified Code(s): I10 - Essential (primary) hypertension Is this a current diagnosis for this admission?: Yes Plan: Patient has a PMH of HTN Continue home dose antihypertensives - Time Time Spent with patient: 15-24 minutes Medications reviewed and adjusted accordingly: Yes Anticipated discharge: Home - Inpatient Certification Based on my medical assessment, after consideration of the patient's comorbidities, presenting symptoms, or acuity I expect that the services needed warrant INPATIENT care.: Yes I certify that my determination is in accordance with my understanding of Medicare's requirements for reasonable and necessary INPATIENT services [42 CFR 412.3e].: Yes Medical Necessity: Risk of Complication if Not Cared For in Hospital - Plan Summary Plan Summary: PATIENT WAITING FOR PULMONARY CONSULT. HESITANT TO D/C HOME PRIOR TO BEING SEEN BY GROUP THERAPY COUNSELOR. APPRECIATE THEIR RECOMMENDATIONS FOR THIS PATIENT WITH REFRACTORY COPD.
[2018-03-24 06:09] LABS: ANION GAP 11 (5-19); BLOOD UREA NITROGEN 22 mg/dL (7-20); CALCIUM 9.7 mg/dL (8.4-10.2); CARBON DIOXIDE 24 mmol/L (22-30); CHLORIDE 101 mmol/L (98-107); GLUCOSE 127 mg/dL (75-110); POTASSIUM 4.5 mmol/L (3.6-5.0)
[2018-03-24 06:51] LABS: HEMATOCRIT 40.1 % (37.9-51.0); MEAN CORPUSCULAR HEMOGLOBIN 31.3 pg (27.0-33.4); MEAN CORPUSCULAR VOLUME 89 fl (80-97); PLATELET COUNT 217 10^3/uL (150-450); RED BLOOD COUNT 4.48 10^6/uL (4.35-5.55); RED CELL DISTRIBUTION WIDTH 14.1 % (11.5-14.0); WHITE BLOOD COUNT 9.8 10^3/uL (4.0-10.5)
--- NOTE | 2018-03-24 08:53 | Physician Advisory Note ---
Physician Advisor ProgressNote .: Pursuant to the plan for [facility], I have reviewed the medical record for this patient. Physician Advisor Statement: Please consider documenting, if you agree: 1. "Chronic Hypoxemic Respiratory Failure requring __L O2 at baseline" 2. "Chronic Interstitial Lung Disease" (per CXR/CT) 3. ? "Possible acute bronchitis", or whatever the possible infxn is that is being tx'd with abx STatus: Attending appears to be still concerned about pt on 03/23, not feeling pt yet safe for d/c clinically, and ordered increased Solumedrol, added Zithromax, and ordered pulmonology consult on 03/23, keeping pt a 2nd MN. If attending documents reasons for the continued clinical concern on 03/23 ( progress note says pt was feeling better and lungs were CTAB, so a reviewer may dispute pt needing a 2nd MN), may change to Inpatient status. Thanks! CK
[2018-03-24] MEDS: TIOTROPIUM BROMIDE DPI 5 CAP/KIT (18 MCG/CAP) IH SCH (09:36)
[2018-03-24] MEDS: ENOXAPARIN SODIUM INJ 40 MG/0.4 ML DISP.SYRIN SUBCUT SCH (09:36)
[2018-03-24] MEDS: SALMETEROL XINAFOATE DISKUS 50 MCG/1 DOSE 28 DOSE IH SCH (09:36)
--- NOTE | 2018-03-24 11:34 | PDOC CONSULTATION ---
Consultation Consult Date: 03/24/18 Attending physician:: MAKI ESPINAL History of Present Illness Admission Date/PCP: 03/22/18 21:58 TAYLER MARES History of Present Illness: ALBA MARCANO is a 72 year old male,Presented to the emergency room with increasing shortness of breath approximately 3 weeks status post discharge for exacerbation of COPD stopped his tapered prednisone on Saturday he noticed he was worse on Saturday he presented to the emergency room he denies nausea vomiting diarrhea fevers chills chest pain he has chronic postnasal drip and a cough was productive of clear phlegm no hemoptysis no edema Past Medical History Cardiac Medical History: Reports: Hypertension Denies: Atrial Fibrillation, Congestive Heart Failure Pulmonary Medical History: Reports: Chronic Obstructive Pulmonary Disease (COPD) Neurological Medical History: Denies: Migraine Endocrine Medical History: Denies: Diabetes Mellitus Type 1, Diabetes Mellitus Type 2, Hyperthyroidism, Hypothyroidism Renal/ Medical History: Denies: End Stage Renal Disease Malignancy Medical History: Reports: Skin Cancer GI Medical History: Denies: Crohn's Disease, Ulcerative Colitis Musculoskeltal Medical History: Denies: Fibromyalgia Hematology: Denies: Hemophilia, Sickle Cell Disease Infectious Medical History: Denies: Clostridium Difficile, HIV Past Surgical History Past Surgical History: Reports: Other - HERNIA REPAIR Social History Lives with: Alone Smoking Status: Former Smoker Cigarettes Packs Per Day: 1 Number of Years Smokin Passive smoke exposure as: Both Frequency of Alcohol Use: None Hx Recreational Drug Use: No Drugs: None Hx Prescription Drug Abuse: No Do you have pets?: No Have you had any respiratory illnesses as a child?: No Have you been exposed to any sick contacts recently?: No Have you had any recent respiratory illnesses?: No Have you travelled outside of [place] in the past 12 months?: No - Advance Directive Resuscitation Status: Full Code Family History Family History: CAD, DM, Other - MOTHER - HEMORRHAGIC STROKE Parental Family History Reviewed: Yes Children Family History Reviewed: Yes Sibling(s) Family History Reviewed.: Yes Medication/Allergy Home Medications: Atenolol [Tenormin 100 mg Tablet] 100 mg PO QHS 03/04/18 Tiotropium Br/Olodaterol HCl [Stiolto Respimat Inhal Halsey] 2 puff IH DAILY Albuterol Sulfate [Proair HFA Inhalation Aerosol 8.5 gm MDI] 2 puff IH Q4HP PRN hfa.[email or web address].[email or web address] 03/10/18 Allergies/Adverse Reactions: No Known Allergies Allergy (Unverified 03/04/18 08:57) Review of Systems Constitutional: ABSENT: chills, fever(s), headache(s), night sweats Eyes: ABSENT: visual disturbances Ears: ABSENT: hearing changes Nose, Mouth, and Throat: ABSENT: mouth pain, sore throat Cardiovascular: PRESENT: dyspnea on exertion. ABSENT: palpitations Respiratory: PRESENT: dyspnea. ABSENT: hemoptysis, sputum Gastrointestinal: ABSENT: abdominal pain, bloating, coffee ground emesis, dysphagia, heartburn, hematemesis, hematochezia, melena Genitourinary: ABSENT: dysuria, hematuria Musculoskeletal: ABSENT: deformity, joint swelling Integumentary: ABSENT: pruritus, rash Neurological: ABSENT: abnormal gait, abnormal movements, abnormal speech, frequent falls, lack of coordination, memory loss Psychiatric: ABSENT: hallucinations, homidical ideation, suicidal ideation Endocrine: ABSENT: cold intolerance, heat intolerance, polydipsia, polyphagia Hematologic/Lymphatic: ABSENT: easy bruising Allergic/Immunologic: PRESENT: seasonal rhinorrhea Physical Exam Vital Signs: Temp Pulse Resp BP Pulse Ox 98.1 F 78 17 108/63 94 03/24/18 07:30 03/24/18 08:35 03/24/18 08:35 03/24/18 07:30 03/24/18 07:30 Intake & Output 03/23/18 03/24/18 03/25/18 06:59 06:59 06:59 Intake Total 439 1429 Balance 439 1429 Weight 79.379 kg 79.5 kg General appearance: PRESENT: no acute distress, cooperative, disheveled, well- developed, well-nourished Head exam: PRESENT: atraumatic, normocephalic Eye exam: PRESENT: conjunctiva pale, EOMI. ABSENT: nystagmus, periorbital swelling, scleral icterus Mouth exam: PRESENT: dry mucosa, neck supple, tongue midline Neck exam: ABSENT: carotid bruit, JVD, lymphadenopathy, thyromegaly, tracheal deviation, tracheostomy Cardiovascular exam: PRESENT: RRR, +S1, +S2. ABSENT: tachycardia Pulses: PRESENT: normal radial pulses GI/Abdominal exam: PRESENT: hypoactive bowel sounds, soft Extremities exam: ABSENT: calf tenderness, clubbing, joint swelling Musculoskeletal exam: ABSENT: deformity, dislocation Neurological exam: PRESENT: alert, awake Psychiatric exam: PRESENT: normal mood Skin exam: PRESENT: dry, warm Results Laboratory Results: 03/24/18 06:22 03/24/18 05:06 03/24/18 03/24/18 05:06 06:22 WBC 9.8 RBC 4.48 Hgb 14.0 Hct 40.1 MCV 89 MCH 31.3 MCHC 35.0 RDW 14.1 H Plt Count 217 Sodium 136.0 L Potassium 4.5 Chloride 101 Carbon Dioxide 24 Anion Gap 11 BUN 22 H Creatinine 0.93 Est GFR ( Amer) > 60 Est GFR (Non-Af Amer) > 60 Glucose 127 H Calcium 9.7 Phosphorus 3.0 Magnesium 2.4 H Impressions: Chest X-Ray 03/22/18 15:24 IMPRESSION: Stable radiographic appearance of the chest demonstrating chronic interstitial lung disease better characterized on comparison CT performed 2017. No acute findings. Chest/Abdomen CTA 03/22/18 16:19 IMPRESSION: 1. No pulmonary emboli. 2. Stable CT appearance of the chest demonstrating both chronic interstitial changes as well as mild emphysematous changes. No acute findings. Assessment & Plan - Diagnosis (1) COPD exacerbation Is this a current diagnosis for this admission?: Yes Plan: Suggest adding Pulmicort holding tiered program and Serevent as this is somewhat of a duplication Generic Name Dose Route Start Last Admin Trade Name Freq PRN Reason Stop Dose Admin Methylprednisolone Sodium Succinate 60 mg 03/23/18 18:00 03/24/18 05:37 Solu-Medrol Inj/Pf 40 Mg/1 Ml Sdv IV 04/22/18 17:59 60 mg Q6 MAXWELL Tiotropium [place] 1 cap 03/23/18 10:00 03/24/18 09:36 Spiriva Handihaler 5 Cap/Kit (18 Mcg/Cap) IH 04/22/18 09:59 1 cap DAILY MAXWELL Albuterol/Ipratropium 3 ml 03/23/18 00:00 03/24/18 08:35 Duoneb 3 Ml Ampul NEB 04/22/18 00:00 3 ml RTQ4 MAXWELL Salmeterol Xinafoate 50 mcg 03/23/18 22:00 03/24/18 09:36 Serevent Diskus 50 Mcg/Dose 28 Dose/Diskus IH 04/22/18 21:59 50 mcg Q12 MAXWELL (2) Hypertension Qualifiers: Hypertension type: essential hypertension Qualified Code(s): I10 - Essential (primary) hypertension Is this a current diagnosis for this admission?: Yes Plan: Stable at this time (3) Hypoxia Is this a current diagnosis for this admission?: Yes Plan: Chronic on oxygen at home (4) Tobacco abuse Is this a current diagnosis for this admission?: Yes Plan: States he and his home have been tobacco free
--- NOTE | 2018-03-24 16:11 | PDOC PROGRESS REPORT ---
Subjective Progress Note for:: 03/24/18 Subjective:: 72 y.o. M with a PMH of COPD (on home O2) and HTN was admitted for shortness of breath. Of note, the patient was recently discharged on 03/12/2018 following hospitalization for a COPD exacerbation. The patient states he began to feel increasingly short of breath once he finished his PO steroid taper. The patient is seen on rounds. He is found sitting upright in bed on supplemental oxygen at 2 L per nasal cannula. Patient reports that he was not on home O2 dependent prior to his recent admission; has only required home oxygen for approximately 1 month. He states that while at rest, he is feeling comfortable, but even minimal activity worsens his dyspnea. The patient states that he attempted to ambulate to the bathroom on room air this morning and felt extremely tachypneic and lightheaded. He reports a slight nonproductive cough which he attributes to recently having discontinued smoking. He denies chest pain, palpitations. Overall, he is feeling much improved as compared to day of admission. Reason For Visit: COPD EXACERBATION Physical Exam Vital Signs: Temp Pulse Resp BP Pulse Ox 97.4 F 69 16 111/65 97 03/24/18 11:18 03/24/18 11:56 03/24/18 11:56 03/24/18 11:18 03/24/18 11:18 Intake & Output 03/23/18 03/24/18 03/25/18 06:59 06:59 06:59 Intake Total 439 1429 Balance 439 1429 Weight 79.379 kg 79.5 kg General appearance: PRESENT: no acute distress, thin, well-developed, well- nourished Head exam: PRESENT: atraumatic, normocephalic Eye exam: PRESENT: conjunctiva pink, EOMI, PERRLA. ABSENT: scleral icterus Ear exam: PRESENT: normal external ear exam Mouth exam: PRESENT: moist, tongue midline Neck exam: ABSENT: carotid bruit, JVD, lymphadenopathy, thyromegaly Respiratory exam: PRESENT: clear to auscultation dmitri, decreased breath sounds - throught; tight, prolonged expiratory phas. ABSENT: rales, rhonchi, wheezes Cardiovascular exam: PRESENT: RRR. ABSENT: diastolic murmur, rubs, systolic murmur Pulses: PRESENT: normal dorsalis pedis pul Vascular exam: PRESENT: normal capillary refill GI/Abdominal exam: PRESENT: normal bowel sounds, soft. ABSENT: distended, guarding, mass, organolmegaly, rebound, tenderness Rectal exam: PRESENT: deferred Extremities exam: PRESENT: full ROM. ABSENT: calf tenderness, clubbing, pedal edema Neurological exam: PRESENT: alert, awake, oriented to person, oriented to place , oriented to time, oriented to situation, CN II-XII grossly intact. ABSENT: motor sensory deficit Psychiatric exam: PRESENT: appropriate affect, normal mood. ABSENT: homicidal ideation, suicidal ideation Skin exam: PRESENT: dry, intact, warm. ABSENT: cyanosis, rash Results Laboratory Results: 03/24/18 06:22 03/24/18 05:06 03/24/18 03/24/18 05:06 06:22 WBC 9.8 RBC 4.48 Hgb 14.0 Hct 40.1 MCV 89 MCH 31.3 MCHC 35.0 RDW 14.1 H Plt Count 217 Sodium 136.0 L Potassium 4.5 Chloride 101 Carbon Dioxide 24 Anion Gap 11 BUN 22 H Creatinine 0.93 Est GFR ( Amer) > 60 Est GFR (Non-Af Amer) > 60 Glucose 127 H Calcium 9.7 Phosphorus 3.0 Magnesium 2.4 H Impressions: Chest X-Ray 03/22/18 15:24 IMPRESSION: Stable radiographic appearance of the chest demonstrating chronic interstitial lung disease better characterized on comparison CT performed 2017. No acute findings. Chest/Abdomen CTA 03/22/18 16:19 IMPRESSION: 1. No pulmonary emboli. 2. Stable CT appearance of the chest demonstrating both chronic interstitial changes as well as mild emphysematous changes. No acute findings. Assessment & Plan - Diagnosis (1) Acute and chronic respiratory failure Qualifiers: Respiratory failure complication: hypoxia Qualified Code(s): J96.21 - Acute and chronic respiratory failure with hypoxia Is this a current diagnosis for this admission?: Yes Plan: The patient presents with acute on chronic respiratory failure requiring 2 L of supplemental oxygen at baseline. The patient presented shortly after discharge from COPD exacerbation; symptoms suddenly worsened upon completion of steroid therapy. He is admitted to the medical floor. Supplemental oxygen as needed to maintain oxygen saturation greater than 88%. He is provided scheduled and as needed nebulizer treatments. IV Solu-Medrol; have begin weaning. We will start Pulmicort today per pulmonology's recommendations. He is placed on Singulair and Mucinex twice daily. Flutter valve to bedside. Anticipate need for home nebulizer device. Pulmonology has been consulted; appreciate Dr. Ly evaluation recommendations. (2) COPD exacerbation Is this a current diagnosis for this admission?: Yes Plan: Spiriva and Serevent held while on scheduled nebulizer treatments. Remaining plan as above. (3) Bronchitis Is this a current diagnosis for this admission?: Yes Plan: The patient has been placed on azithromycin for empiric coverage of bronchitis given the patient's prolonged symptoms and relapse following completion of steroid therapy. Patient has remained afebrile throughout admission. WBCs are normal. We will transition to p.o. today for completion of 5 day course of antibiotics. Remaining plan as above. (4) Hypertension Qualifiers: Hypertension type: essential hypertension Qualified Code(s): I10 - Essential (primary) hypertension Is this a current diagnosis for this admission?: Yes Plan: Continue home dose antihypertensives. - Time Time Spent with patient: 25-34 minutes Medications reviewed and adjusted accordingly: Yes Anticipated discharge: Home Within: within 72 hours - Inpatient Certification Based on my medical assessment, after consideration of the patient's comorbidities, presenting symptoms, or acuity I expect that the services needed warrant INPATIENT care.: Yes I certify that my determination is in accordance with my understanding of Medicare's requirements for reasonable and necessary INPATIENT services [42 CFR 412.3e].: Yes Medical Necessity: Need for Nebulizer Therapy and Monitoring of Response
[2018-03-24] MEDS: BUDESONIDE NEB 0.5 MG/2 ML AMPUL NEB SCH (19:14)
[2018-03-24] MEDS: MONTELUKAST SODIUM 10 MG TABLET PO SCH (21:28)
[2018-03-24] MEDS: AZITHROMYCIN 250 MG TABLET PO SCH (21:28)
[2018-03-24] MEDS: GUAIFENESIN 600 MG TABLET.SA PO SCH (21:29)
[2018-03-24] MEDS: ATENOLOL 50 MG TABLET PO SCH (21:35)
[2018-03-25] MEDS: IPRATROPIUM/ALBUTEROL 0.5-2.5 MG/3 ML AMPUL NEB SCH ×4 (01:49→23:59)
[2018-03-25] MEDS: METHYLPREDNISOLONE INJ 40 MG/1 ML SDV IV SCH ×3 (05:31→21:32)
[2018-03-25] MEDS: LANSOPRAZOLE 30 MG TAB.RAP.DR PO SCH (05:31)
[2018-03-25 07:31] LABS: ANION GAP 8 (5-19); BLOOD UREA NITROGEN 26 mg/dL (7-20); CALCIUM 9.8 mg/dL (8.4-10.2); CARBON DIOXIDE 25 mmol/L (22-30); CHLORIDE 102 mmol/L (98-107); GLUCOSE 130 mg/dL (75-110); POTASSIUM 4.4 mmol/L (3.6-5.0); SODIUM 135.2 mmol/L (137-145)
[2018-03-25] MEDS: BUDESONIDE NEB 0.5 MG/2 ML AMPUL NEB SCH ×2 (07:50→19:43)
[2018-03-25] MEDS: ENOXAPARIN SODIUM INJ 40 MG/0.4 ML DISP.SYRIN SUBCUT SCH (09:04)
[2018-03-25] MEDS: GUAIFENESIN 600 MG TABLET.SA PO SCH ×2 (09:04→21:31)
--- NOTE | 2018-03-25 18:41 | PDOC PROGRESS REPORT ---
Subjective Progress Note for:: 03/25/18 Subjective:: 72 y.o. M with a PMH of COPD (on home O2) and HTN was admitted for shortness of breath. Of note, the patient was recently discharged on 03/12/2018 following hospitalization for a COPD exacerbation. The patient states he began to feel increasingly short of breath once he finished his PO steroid taper. The patient is seen on rounds. He is found sitting upright in bed on supplemental oxygen at 2 L per nasal cannula; while in the room talking with the patient, I did turn his oxygen off. He did not exhibit any signs of tachypnea, dyspnea, and continue to speak in full sentences. Patient reports that he was recently prescribed home O2; utilizes 2 L/min intermittently and overnight. He reports that he feels much better today and is hopeful to be discharged in the near future. He denies fever, chills, chest pain, palpitations, dyspnea and orthopnea. He reports a slight increase in his productive cough which he is pleased by as he feels like he is finally beginning to clear his sputum. Reason For Visit: COPD EXACERBATION Physical Exam Vital Signs: Temp Pulse Resp BP Pulse Ox 97.5 F 71 18 97/54 L 91 L 03/25/18 16:00 03/25/18 16:00 03/25/18 16:00 03/25/18 16:00 03/25/18 16:00 Intake & Output 03/24/18 03/25/18 03/26/18 06:59 06:59 06:59 Intake Total 1196 951 7466 Balance 5821 534 3181 Weight 79.5 kg 80.2 kg General appearance: PRESENT: no acute distress, cooperative, well-developed, well-nourished Head exam: PRESENT: atraumatic, normocephalic Eye exam: PRESENT: conjunctiva pink, EOMI, PERRLA. ABSENT: scleral icterus Ear exam: PRESENT: normal external ear exam Mouth exam: PRESENT: moist, tongue midline Neck exam: ABSENT: carotid bruit, JVD, lymphadenopathy, thyromegaly Respiratory exam: PRESENT: clear to auscultation dmitri, decreased breath sounds - Bibasilar; increased air movement today., prolonged expiratory phas, symmetrical , unlabored. ABSENT: rales, rhonchi, wheezes Cardiovascular exam: PRESENT: RRR, +S1, +S2. ABSENT: diastolic murmur, rubs, systolic murmur Vascular exam: PRESENT: normal capillary refill GI/Abdominal exam: PRESENT: normal bowel sounds, soft. ABSENT: distended, guarding, mass, organolmegaly, rebound, tenderness Rectal exam: PRESENT: deferred Extremities exam: PRESENT: full ROM. ABSENT: calf tenderness, clubbing, pedal edema Neurological exam: PRESENT: alert, awake, oriented to person, oriented to place , oriented to time, oriented to situation, CN II-XII grossly intact. ABSENT: motor sensory deficit Psychiatric exam: PRESENT: appropriate affect, normal mood. ABSENT: homicidal ideation, suicidal ideation Skin exam: PRESENT: dry, intact, warm. ABSENT: cyanosis, rash Results Laboratory Results: 03/24/18 06:22 03/25/18 06:40 03/25/18 06:40 Sodium 135.2 L Potassium 4.4 Chloride 102 Carbon Dioxide 25 Anion Gap 8 BUN 26 H Creatinine 0.95 Est GFR ( Amer) > 60 Est GFR (Non-Af Amer) > 60 Glucose 130 H Calcium 9.8 Impressions: Chest X-Ray 03/22/18 15:24 IMPRESSION: Stable radiographic appearance of the chest demonstrating chronic interstitial lung disease better characterized on comparison CT performed 2017. No acute findings. Chest/Abdomen CTA 03/22/18 16:19 IMPRESSION: 1. No pulmonary emboli. 2. Stable CT appearance of the chest demonstrating both chronic interstitial changes as well as mild emphysematous changes. No acute findings. Assessment & Plan - Diagnosis (1) Acute and chronic respiratory failure Qualifiers: Respiratory failure complication: hypoxia Qualified Code(s): J96.21 - Acute and chronic respiratory failure with hypoxia Is this a current diagnosis for this admission?: Yes Plan: Improved. The patient presents with acute on chronic respiratory failure requiring 2 L of supplemental oxygen at baseline. The patient presented shortly after discharge from COPD exacerbation; symptoms suddenly worsened upon completion of steroid therapy. He is admitted to the medical floor. Supplemental oxygen as needed to maintain oxygen saturation greater than 88%. He is provided scheduled and as needed nebulizer treatments; have begun weaning scheduled nebs. IV Solu-Medrol; continue weaning. Continue Pulmicort per pulmonology's recommendations. He is placed on Singulair and Mucinex twice daily. Flutter valve to bedside. Anticipate need for home nebulizer device. Pulmonology has been consulted; appreciate Dr. Ly evaluation recommendations. (2) COPD exacerbation Is this a current diagnosis for this admission?: Yes Plan: Spiriva and Serevent held while on scheduled nebulizer treatments. Remaining plan as above. (3) Bronchitis Is this a current diagnosis for this admission?: Yes Plan: The patient has been placed on azithromycin for empiric coverage of bronchitis given the patient's prolonged symptoms and relapse following completion of steroid therapy. Patient has remained afebrile throughout admission. WBCs are normal. Continue p.o. for completion of 5 day course of antibiotics. Remaining plan as above. (4) Hypertension Qualifiers: Hypertension type: essential hypertension Qualified Code(s): I10 - Essential (primary) hypertension Is this a current diagnosis for this admission?: Yes Plan: Continue home dose antihypertensives. - Time Time Spent with patient: 15-24 minutes Medications reviewed and adjusted accordingly: Yes Anticipated discharge: Home Within: within 48 hours
[2018-03-25] MEDS: ATENOLOL 50 MG TABLET PO SCH (21:30)
[2018-03-25] MEDS: AZITHROMYCIN 250 MG TABLET PO SCH (21:31)
[2018-03-25] MEDS: MONTELUKAST SODIUM 10 MG TABLET PO SCH (21:32)
[2018-03-26] MEDS: METHYLPREDNISOLONE INJ 40 MG/1 ML SDV IV SCH (05:39)
[2018-03-26] MEDS: LANSOPRAZOLE 30 MG TAB.RAP.DR PO SCH (05:39)
[2018-03-26] MEDS: BUDESONIDE NEB 0.5 MG/2 ML AMPUL NEB SCH (08:55)
[2018-03-26] MEDS: IPRATROPIUM/ALBUTEROL 0.5-2.5 MG/3 ML AMPUL NEB SCH (08:55)
[2018-03-26] MEDS: GUAIFENESIN 600 MG TABLET.SA PO SCH ×2 (09:35→21:32)
[2018-03-26] MEDS: ENOXAPARIN SODIUM INJ 40 MG/0.4 ML DISP.SYRIN SUBCUT SCH (09:35)
[2018-03-26] MEDS ORDERED: IPRATROPIUM/ALBUTEROL 0.5-2.5 MG/3 ML AMPUL NEB PRN (12:07)
[2018-03-26] MEDS: PREDNISONE 20 MG TABLET PO SCH (17:31)
--- NOTE | 2018-03-26 18:36 | PDOC PROGRESS REPORT ---
Subjective Progress Note for:: 03/26/18 Subjective:: 72 y.o. M with a PMH of COPD (on home O2) and HTN was admitted for shortness of breath. Of note, the patient was recently discharged on 03/12/2018 following hospitalization for a COPD exacerbation. The patient states he began to feel increasingly short of breath once he finished his PO steroid taper. The patient is seen on rounds. He is found sitting upright in bed on supplemental oxygen at 2 L per nasal cannula. He reports that he feels much better today. However, still becomes short of breath with ambulation. We discussed further de-escalation of IV steroids and initiation of maintenance therapy. He denies fever, chills, chest pain, palpitations, dyspnea at rest and orthopnea. Reason For Visit: COPD EXACERBATION Physical Exam Vital Signs: Temp Pulse Resp BP Pulse Ox 98.3 F 66 16 96/63 L 91 L 03/26/18 16:00 03/26/18 16:20 03/26/18 16:20 03/26/18 16:00 03/26/18 16:20 Intake & Output 03/25/18 03/26/18 03/27/18 06:59 06:59 06:59 Intake Total 947 2215 20 Balance 947 2215 20 Weight 80.2 kg 80.7 kg General appearance: PRESENT: no acute distress, well-developed, well-nourished Head exam: PRESENT: atraumatic, normocephalic Eye exam: PRESENT: conjunctiva pink, EOMI, PERRLA. ABSENT: scleral icterus Ear exam: PRESENT: normal external ear exam Mouth exam: PRESENT: moist, tongue midline Neck exam: ABSENT: carotid bruit, JVD, lymphadenopathy, thyromegaly Respiratory exam: PRESENT: clear to auscultation dmitri, prolonged expiratory phas , symmetrical, unlabored. ABSENT: rales, rhonchi, wheezes Cardiovascular exam: PRESENT: RRR. ABSENT: diastolic murmur, rubs, systolic murmur Pulses: PRESENT: normal dorsalis pedis pul Vascular exam: PRESENT: normal capillary refill GI/Abdominal exam: PRESENT: normal bowel sounds, soft. ABSENT: distended, guarding, mass, organolmegaly, rebound, tenderness Rectal exam: PRESENT: deferred Extremities exam: PRESENT: full ROM. ABSENT: calf tenderness, clubbing, pedal edema Neurological exam: PRESENT: alert, awake, oriented to person, oriented to place , oriented to time, oriented to situation, CN II-XII grossly intact. ABSENT: motor sensory deficit Psychiatric exam: PRESENT: appropriate affect, normal mood. ABSENT: homicidal ideation, suicidal ideation Skin exam: PRESENT: dry, intact, warm. ABSENT: cyanosis, rash Results Laboratory Results: 03/24/18 06:22 03/25/18 06:40 Impressions: Chest X-Ray 03/22/18 15:24 IMPRESSION: Stable radiographic appearance of the chest demonstrating chronic interstitial lung disease better characterized on comparison CT performed 2017. No acute findings. Chest/Abdomen CTA 03/22/18 16:19 IMPRESSION: 1. No pulmonary emboli. 2. Stable CT appearance of the chest demonstrating both chronic interstitial changes as well as mild emphysematous changes. No acute findings. Assessment & Plan - Diagnosis (1) Acute and chronic respiratory failure Qualifiers: Respiratory failure complication: hypoxia Qualified Code(s): J96.21 - Acute and chronic respiratory failure with hypoxia Is this a current diagnosis for this admission?: Yes Plan: Improved; nearly to baseline. The patient presents with acute on chronic respiratory failure requiring 2 L of supplemental oxygen at baseline. The patient presented shortly after discharge from COPD exacerbation; symptoms suddenly worsened upon completion of steroid therapy. He is admitted to the medical floor. Supplemental oxygen as needed to maintain oxygen saturation greater than 88%. He is provided as needed nebulizer treatments. Transition to p.o. prednisone today.. Initiate Advair and Spiriva. Continue Singulair and Mucinex twice daily. Flutter valve to bedside. Pulmonology has been consulted; appreciate Dr. Ly evaluation recommendations. Anticipate need for home nebulizer device. The patient already utilizes home O2 at 2 L/min when ambulating. Likely discharge to home tomorrow. (2) COPD exacerbation Is this a current diagnosis for this admission?: Yes Plan: Plan as above. (3) Bronchitis Is this a current diagnosis for this admission?: Yes Plan: The patient has been placed on azithromycin for empiric coverage of bronchitis given the patient's prolonged symptoms and relapse following completion of steroid therapy. Patient has remained afebrile throughout admission. WBCs are normal. Continue p.o. for completion of 5 day course of antibiotics. Remaining plan as above. (4) Hypertension Qualifiers: Hypertension type: essential hypertension Qualified Code(s): I10 - Essential (primary) hypertension Is this a current diagnosis for this admission?: Yes Plan: Continue home dose antihypertensives. - Time Time Spent with patient: 15-24 minutes Medications reviewed and adjusted accordingly: Yes Anticipated discharge: Home Within: within 24 hours
[2018-03-26] MEDS: FLUTICASONE/SALMETEROL DISKUS 250-50 MCG/DOSE IH SCH (21:31)
[2018-03-26] MEDS: AZITHROMYCIN 250 MG TABLET PO SCH (21:32)
[2018-03-26] MEDS: ATENOLOL 50 MG TABLET PO SCH (21:32)
[2018-03-26] MEDS: MONTELUKAST SODIUM 10 MG TABLET PO SCH (21:32)
[2018-03-27] MEDS: LANSOPRAZOLE 30 MG TAB.RAP.DR PO SCH (05:28)
[2018-03-27] MEDS: PREDNISONE 20 MG TABLET PO SCH ×2 (09:52→17:21)
[2018-03-27] MEDS: FLUTICASONE/SALMETEROL DISKUS 250-50 MCG/DOSE IH SCH (09:52)
[2018-03-27] MEDS: TIOTROPIUM BROMIDE DPI 5 CAP/KIT (18 MCG/CAP) IH SCH (09:52)
[2018-03-27] MEDS: GUAIFENESIN 600 MG TABLET.SA PO SCH (09:52)
[2018-03-27] MEDS: ENOXAPARIN SODIUM INJ 40 MG/0.4 ML DISP.SYRIN SUBCUT SCH (09:52)
[2018-03-27 14:27] VITALS: BP 96/63
--- NOTE | 2018-03-29 22:21 | PDOC DISCHARGE SUMMARY ---
General - Admit/Disc Date/PCP Admission Date/Primary Care Provider: 03/22/18 21:58 RADHA BOB [employer]ER Discharge Date: 03/27/18 - Discharge Diagnosis (1) Acute and chronic respiratory failure Is this a current diagnosis for this admission?: Yes Summary: The patient presented with acute on chronic respiratory failure requiring 2 L of supplemental oxygen at baseline. The patient presented shortly after discharge from COPD exacerbation; symptoms suddenly worsened upon completion of steroid therapy. He was admitted to the medical floor and supported with supplemental oxygen and as needed nebulizer treatments. He did not require BiPAP support. He was provided IV Solu-Medrol and transitioned to p.o. prednisone as symptoms improved. The patient was started on Advair and Spiriva. His Singulair and Mucinex were continued. Pulmonology has been consulted; patient will follow up after discharge. Arrangements were made for the patient to receive a nebulizer device. Prior to device delivery, the patient requested to be discharged to home. He was provided written prescriptions for a nebulizer kit, Duo-neb solution, Advair, Spiriva, a prednisone taper and a rescue inhaler. At time of discharge, the patient was in stable condition, maintained oxygen saturation on room air at rest but continued to require 2 lpm via nasal canula when ambulation. He was instructed to follow up with his primary care provider within 1 week and with Pulmonology in 2-4 weeks. (2) COPD exacerbation Is this a current diagnosis for this admission?: Yes (3) Bronchitis Is this a current diagnosis for this admission?: Yes Summary: The patient has been placed on azithromycin for empiric coverage of bronchitis given the patient's prolonged symptoms and relapse following completion of steroid therapy. Patient has remained afebrile throughout admission. WBCs are normal. A prescription was provided to complete a 5 day course of antibiotics. (4) Hypertension Is this a current diagnosis for this admission?: Yes Summary: Patient's home medications were continued with appropriate blood pressure control. - Additional Information Resuscitation Status: Full Code Discharge Diet: Regular Discharge Activity: Activity As Tolerated, Balance Activity w/Rest Prescriptions: Azithromycin [Zithromax 250 mg Tablet] 250 mg PO QHS #4 tablet Fluticasone/Salmeterol [Advair 250-50 Diskus 14 Dose/Diskus] 1 inh IH Q12 #1 inhaler Guaifenesin [Mucinex Sr 600 mg Tablet.sa] 600 mg PO Q12 #30 tablet.sa Ipratropium/Albuterol Sulfate [Duoneb 3 ml Ampul] 3 ml NEB RTQ6HP PRN #120 vial.neb PRN Reason: Lansoprazole [Prevacid 30 mg Odt Tablet] 30 mg PO Q6AM #30 tab.rap. Montelukast Sodium [Singulair 10 mg Tablet] 10 mg PO QHS #30 tablet Nebulizer [Nebulizer Machine] 1 each ASDIR PRN #1 kit PRN Reason: Shortness Of Breath Prednisone [Deltasone 20 mg Tablet] 40 mg PO DAILY #8 tablet Tiotropium Rochelle [Spiriva Handihaler 5 Cap/Kit (18 Mcg/Cap)] 1 cap IH DAILY # 1 kit Home Medications: Atenolol [Tenormin 100 mg Tablet] 100 mg PO QHS 03/04/18 Albuterol Sulfate [Proair HFA Inhalation Aerosol 8.5 gm MDI] 2 puff IH Q4HP PRN hfa.aer.ad 03/10/18 Acetaminophen [Tylenol 325 mg Tablet] 650 mg PO Q4HP PRN tablet 03/27/18 Azithromycin [Zithromax 250 mg Tablet] 250 mg PO QHS #4 tablet 03/27/18 Fluticasone/Salmeterol [Advair 250-50 Diskus 14 Dose/Diskus] 1 inh IH Q12 #1 inhaler 03/27/18 Guaifenesin [Mucinex Sr 600 mg Tablet.sa] 600 mg PO Q12 #30 tablet.sa 03/27/18 Ipratropium/Albuterol Sulfate [Duoneb 3 ml Ampul] 3 ml NEB RTQ6HP PRN #120 vial.neb 03/27/18 Lansoprazole [Prevacid 30 mg Odt Tablet] 30 mg PO Q6AM #30 tab.rap 03/27/18 Montelukast Sodium [Singulair 10 mg Tablet] 10 mg PO QHS #30 tablet 03/27/18 Nebulizer [Nebulizer Machine] 1 each ASDIR PRN #1 kit 03/27/18 Prednisone [Deltasone 20 mg Tablet] 40 mg PO DAILY #8 tablet 03/27/18 Tiotropium Rochelle [Spiriva Handihaler 5 Cap/Kit (18 Mcg/Cap)] 1 cap IH DAILY # 1 kit 03/27/18 History of Present Illness History of Present Illness: Per H&P by Santy SILVERMAN/Dr. Yost: 72 y.o. M with a PMH of COPD (on home O2) and HTN was admitted for shortness of breath. Of note, the patient was recently discharged on 03/12/2018 following hospitalization for a COPD exacerbation. The patient states he began to feel increasingly short of breath once he finished his PO steroid taper. Patient seen this morning on rounds, he is resting comfortably in bed on supplemental oxygen. Lungs clear to auscultation. Patient is able to answer all questions appropriately without pause. Physical Exam Vital Signs: Temp Pulse Resp BP Pulse Ox 98.1 F 77 16 96/63 L 92 03/27/18 14:26 03/27/18 14:26 03/27/18 14:26 03/27/18 14:26 03/27/18 14:26 Results Laboratory Results: 03/24/18 06:22 03/25/18 06:40 Impressions: Chest X-Ray 03/22/18 15:24 IMPRESSION: Stable radiographic appearance of the chest demonstrating chronic interstitial lung disease better characterized on comparison CT performed 2017. No acute findings. Chest/Abdomen CTA 03/22/18 16:19 IMPRESSION: 1. No pulmonary emboli. 2. Stable CT appearance of the chest demonstrating both chronic interstitial changes as well as mild emphysematous changes. No acute findings. Qualifiers - * PATIENT BEING DISCHARGED WITH ANY OF THE FOLLOWING DIAGNOSIS: No Plan Discharge Plan: Discharge to home with self care. Follow up with primary care provider within 1 week. Follow up with pulmonology, Dr. Ly, with 2-4 weeks. Time Spent: Less than 30 Minutes
--- NOTE | 2018-04-06 19:02 | PDOC PROGRESS REPORT ---
Subjective Progress Note for:: 03/25/18 Subjective:: Stable without complaints Reason For Visit: COPD EXACERBATION Physical Exam Vital Signs: Temp Pulse Resp BP Pulse Ox 97.9 F 62 20 101/58 L 94 03/26/18 23:52 03/26/18 23:52 03/26/18 23:52 03/26/18 23:52 03/26/18 23:52 Intake & Output 03/26/18 03/27/18 03/28/18 06:59 06:59 06:59 Intake Total 2215 3102 Balance 2215 3102 Weight 80.7 kg 81.3 kg General appearance: PRESENT: no acute distress, cooperative, disheveled Head exam: PRESENT: atraumatic, normocephalic Eye exam: PRESENT: conjunctiva pale, EOMI. ABSENT: nystagmus Mouth exam: PRESENT: moist, neck supple, tongue midline Neck exam: ABSENT: carotid bruit, JVD, lymphadenopathy, thyromegaly, tracheal deviation Respiratory exam: PRESENT: decreased breath sounds, prolonged expiratory phas, rhonchi, unlabored. ABSENT: retraction Cardiovascular exam: PRESENT: RRR, +S1, +S2 Pulses: PRESENT: normal radial pulses GI/Abdominal exam: PRESENT: normal bowel sounds, soft Extremities exam: ABSENT: calf tenderness, clubbing Musculoskeletal exam: ABSENT: deformity, dislocation Neurological exam: PRESENT: awake Skin exam: PRESENT: dry, warm Results Laboratory Results: 03/24/18 06:22 03/25/18 06:40 Impressions: Chest X-Ray 03/22/18 15:24 IMPRESSION: Stable radiographic appearance of the chest demonstrating chronic interstitial lung disease better characterized on comparison CT performed 2017. No acute findings. Chest/Abdomen CTA 03/22/18 16:19 IMPRESSION: 1. No pulmonary emboli. 2. Stable CT appearance of the chest demonstrating both chronic interstitial changes as well as mild emphysematous changes. No acute findings. Assessment & Plan - Diagnosis (1) COPD exacerbation Is this a current diagnosis for this admission?: Yes Plan: Improving (2) Hypertension Qualifiers: Hypertension type: essential hypertension Qualified Code(s): I10 - Essential (primary) hypertension Is this a current diagnosis for this admission?: Yes Plan: Stable at this time (3) Hypoxia Is this a current diagnosis for this admission?: Yes (4) Tobacco abuse Is this a current diagnosis for this admission?: Yes Plan: States he and his home have been tobacco free
--- NOTE | 2018-04-06 19:05 | PDOC PROGRESS REPORT ---
Subjective Progress Note for:: 03/27/18 Subjective:: without complaints Reason For Visit: COPD EXACERBATION Physical Exam Vital Signs: Temp Pulse Resp BP Pulse Ox 97.9 F 62 20 101/58 L 94 03/26/18 23:52 03/26/18 23:52 03/26/18 23:52 03/26/18 23:52 03/26/18 23:52 Intake & Output 03/26/18 03/27/18 03/28/18 06:59 06:59 06:59 Intake Total 2215 3102 Balance 2215 3102 Weight 80.7 kg 81.3 kg General appearance: PRESENT: no acute distress Head exam: PRESENT: atraumatic, normocephalic Eye exam: PRESENT: conjunctiva pale, EOMI. ABSENT: nystagmus Mouth exam: PRESENT: moist, neck supple, tongue midline Neck exam: ABSENT: carotid bruit, JVD, lymphadenopathy, thyromegaly, tracheal deviation, tracheostomy Respiratory exam: PRESENT: decreased breath sounds, prolonged expiratory phas, rhonchi, unlabored. ABSENT: rales, retraction, stridor Cardiovascular exam: PRESENT: RRR, +S1, +S2 Pulses: PRESENT: normal radial pulses GI/Abdominal exam: PRESENT: normal bowel sounds, soft Extremities exam: ABSENT: calf tenderness, clubbing, joint swelling Musculoskeletal exam: ABSENT: deformity, dislocation Neurological exam: PRESENT: awake Skin exam: PRESENT: dry, warm Results Laboratory Results: 03/24/18 06:22 03/25/18 06:40 Impressions: Chest X-Ray 03/22/18 15:24 IMPRESSION: Stable radiographic appearance of the chest demonstrating chronic interstitial lung disease better characterized on comparison CT performed 2017. No acute findings. Chest/Abdomen CTA 03/22/18 16:19 IMPRESSION: 1. No pulmonary emboli. 2. Stable CT appearance of the chest demonstrating both chronic interstitial changes as well as mild emphysematous changes. No acute findings. Assessment & Plan - Diagnosis (1) COPD exacerbation Is this a current diagnosis for this admission?: Yes Plan: Improving (2) Hypertension Qualifiers: Hypertension type: essential hypertension Qualified Code(s): I10 - Essential (primary) hypertension Is this a current diagnosis for this admission?: Yes Plan: Stable at this time (3) Hypoxia Is this a current diagnosis for this admission?: Yes Plan: Chronic on oxygen at home (4) Tobacco abuse Is this a current diagnosis for this admission?: Yes Plan: States he and his home have been tobacco free
== END 2018-03-27 17:17 | disposition home or self-care (01) | DRG 190 ==
LOC: ER 15:08 → EH 21:40 → INTOOBSV 21:58 → UNDOADMOB 21:58 → EH 21:58 → OBSVTOIN 21:58 → EH 03-23 00:37 → 5 03-23 00:37 → OBSVTOIN 03-24 14:30 → UNDODISIN 03-27 17:17
PROVIDERS: ADMIT Internal Medicine; ATTEND Internal Medicine
PROC: 3E0F73Z Introduction of Anti-inflammatory into Respiratory Tract, Via Natural or Artificial Opening (ICD-10-PCS; principal; 2018-03-22)
DX: J44.1 Chronic obstructive pulmonary disease with (acute) exacerbation (principal); J96.21 Acute and chronic respiratory failure with hypoxia; I10 Essential (primary) hypertension; Z79.899 Other long term (current) drug therapy; Z99.81 Dependence on supplemental oxygen; Z85.828 Personal history of other malignant neoplasm of skin; Z60.2 Problems related to living alone; Z87.891 Personal history of nicotine dependence; Z82.3 Family history of stroke; Z83.3 Family history of diabetes mellitus; Z82.49 Family history of ischemic heart disease and other diseases of the circulatory system
CPT/HCPCS: 36415; 71045; 71275; 80048; 80053; 82550; 82553; 82803; 83735; 84100; 84484; 85025; 85027; 87040; 93005; 93010; 94640; 94667; 94668; 99291; G0378; J0456; J1650; J2920; J3490; J7060; J7512; J7620

== ENCOUNTER 2018-10-22 10:42 | Inpatient (IN) | payer OTHER, MEDICARE ==
[2018-10-22 11:10] LABS: HEMATOCRIT 47.3 % (37.9-51.0); HEMOGLOBIN 16.1 g/dL (13.5-17.0); MEAN CORPUSCULAR HEMOGLOBIN 30.1 pg (27.0-33.4); MEAN CORPUSCULAR HGB CONC 34.1 g/dL (32.0-36.0); MEAN CORPUSCULAR VOLUME 88 fl (80-97); PLATELET COUNT 273 10^3/uL (150-450); RED BLOOD COUNT 5.35 10^6/uL (4.35-5.55); WHITE BLOOD COUNT 10.7 10^3/uL (4.0-10.5)
[2018-10-22 11:25] LABS: ALANINE AMINOTRANSFERASE 76 U/L (21-72); ALBUMIN 4.8 g/dL (3.5-5.0); ALKALINE PHOSPHATASE 116 U/L (38-126); ANION GAP 11 (5-19); ASPARTATE AMINO TRANSFERASE 71 U/L (17-59); BILIRUBIN,DIRECT 0.3 mg/dL (0.0-0.4); BILIRUBIN,TOTAL 0.6 mg/dL (0.2-1.3); BLOOD UREA NITROGEN 23 mg/dL (7-20); CALCIUM 10.3 mg/dL (8.4-10.2); CARBON DIOXIDE 31 mmol/L (22-30); CHLORIDE 93 mmol/L (98-107); CREATINE KINASE 408 U/L (55-170); GLUCOSE 113 mg/dL (75-110); POTASSIUM 4.8 mmol/L (3.6-5.0); SODIUM 134.7 mmol/L (137-145)
[2018-10-22 11:32] LABS: ABSOLUTE LYMPHOCYTES# (MANUAL) 0.3 10^3/uL (0.5-4.7); ABSOLUTE MONOCYTES # (MANUAL) 1.1 10^3/uL (0.1-1.4); ABSOLUTE NEUTROPHILS# (MANUAL) 9.3 10^3/uL (1.7-8.2); BASOPHILS % (MANUAL) 0 % (0-2); EOSINOPHILS % (MANUAL) 0 % (0-6); LYMPHOCYTES % (MANUAL) 1 % (13-45); MONOCYTES % (MANUAL) 10 % (3-13); PLATELET COMMENT ADEQUATE; RBC MORPHOLOGY COMMENT NORMO-CYTIC/CHROMIC; SEGMENTED NEUTROPHILS % (MAN) 87 % (42-78); TOTAL CELLS COUNTED 100
[2018-10-22 11:37] LABS: CREATINE KINASE MB 11.7 ng/mL (<4.55)
[2018-10-22 11:42] LABS: TROPONIN I 0.064 ng/mL
[2018-10-22] MEDS ORDERED: ASPIRIN 81 MG TABLET, CHEWABLE PO ONE (11:52)
[2018-10-22] MEDS ORDERED: IPRATROPIUM/ALBUTEROL 0.5-2.5 MG/3 ML AMPUL NEB ONE (12:02)
[2018-10-22] MEDS ORDERED: ALBUTEROL SULFATE 0.083% NEB 2.5 MG/3 ML AMPUL NEB ONE (12:02)
[2018-10-22] MEDS ORDERED: METHYLPREDNISOLONE INJ 125 MG/2 ML SDV IV ONE (12:02)
--- NOTE | 2018-10-22 12:05 | ER Document Report ---
ED General - General Chief Complaint: Shortness Of Breath Stated Complaint: SHORTNESS OF BREATH Time Seen by Provider: 10/22/18 11:24 TRAVEL OUTSIDE OF THE [place] IN LAST 30 DAYS: No - HPI Notes: Patient is a 73-year-old male that presents to the emergency department for chief complaint of dyspnea on exertion. Patient has COPD and is on 2 L nasal cannula at all times. He also takes prednisone 10 mg daily. He reports for the last few weeks he has had increasing dyspnea with exertion. He states now he is having a hard time even standing up without becoming short of breath. He has not increase his home oxygen but states he did have a pulse ox at one point that was in the 60s. This was after exerting himself. He states he came up quickly with rest. He denies any fever, chills, increased sputum, palpitations and chest pain. He denies history of OR or cardiac disease Past Medical History: COPD, hypertension Past Surgical History: Hernia repair Social History: Former smoker, denies alcohol Family History: Reviewed and noncontributory for presenting illness Allergies: Reviewed, see documented allergy list. REVIEW OF SYSTEMS: CONSTITUTIONAL : No fever No chills No diaphoresis No recent illness EENT: No vision changes No congestion No sore throat CARDIOVASCULAR: No chest pain No palpitations RESPIRATORY: shortness of breath cough difficulty breathing GASTROINTESTINAL: No abdominal pain No nausea No vomiting No diarrhea GENITOURINARY: No dysuria No hematuria No difficulty urinating MUSCULOSKELETAL: No back pain No leg pain No arm pain SKIN: No rashes No lesions LYMPHATIC: No swollen, enlarged glands. NEUROLOGICAL: No lightheadedness No headache No weakness No paresthesias PSYCHIATRIC: No anxiety No depression PHYSICAL EXAMINATION: Vital signs reviewed, nursing noted reviewed. GENERAL: Well-appearing, well-nourished and in no acute distress. HEAD: Atraumatic, normocephalic. EYES: Eyes appear normal, extraocular movements intact, sclera anicteric, conjunctiva are normal. ENT: nares patent, oropharynx clear without exudates. Moist mucous membranes. NECK: Normal range of motion, supple without lymphadenopathy LUNGS: Breath sounds diminished with diffuse wheezing. Bibasilar rhonchi. No accessory muscle use. Speaking in full sentences. HEART: Regular rate and rhythm without murmurs ABDOMEN: Soft, nontender, normoactive bowel sounds. No rebound, guarding, or rigidity. No masses appreciated. EXTREMITIES: Nontender, good range of motion, no pitting or edema. NEUROLOGICAL: No focal neurological deficits. Moves all extremities spontaneously Motor and sensory grossly intact on exam. PSYCH: Normal mood, normal affect. SKIN: Warm, Dry, normal turgor, no rashes or lesions noted on exposed skin - Related Data Allergies/Adverse Reactions: No Known Allergies Allergy (Unverified 03/04/18 08:57) Past Medical History - Social History Smoking Status: Former Smoker Family History: CAD, DM, Other - MOTHER - HEMORRHAGIC STROKE Patient has suicidal ideation: No Patient has homicidal ideation: No - Past Medical History Cardiac Medical History: Reports: Hx Hypertension Denies: Hx Atrial Fibrillation, Hx Congestive Heart Failure Pulmonary Medical History: Reports: Hx COPD Neurological Medical History: Denies: Hx Migraine Endocrine Medical History: Denies: Hx Diabetes Mellitus Type 1, Hx Diabetes Mellitus Type 2, Hx Hyperthyroidism, Hx Hypothyroidism Renal/ Medical History: Denies: Hx End Stage Renal Disease, Hx Peritoneal Dialysis Malignancy Medical History: Reports Hx Skin Cancer GI Medical History: Denies: Hx Crohn's Disease, Hx Ulcerative Colitis Musculoskeletal Medical History: Denies Hx Fibromyalgia Infectious Medical History: Denies: Hx C-Diff, Hx HIV Past Surgical History: Reports: Other - HERNIA REPAIR - Immunizations Hx Pneumococcal Vaccination: 07/07/17 Physical Exam - Vital signs Vitals: Pulse Ox 96 10/22/18 10:46 Course - Re-evaluation Re-evalutation: 10/22/18 12:04 Vitals reviewed. Nursing notes reviewed. Patient is oxygenating well on his home 2 L nasal cannula. He is in no acute respiratory distress. He did receive Solu-Medrol, DuoNeb and albuterol for COPD exacerbation. Patient's lab work shows a slight elevation in his troponin at 0.06. He will be given aspirin. He is not having chest pain and states he did not not ever have any chest pain. He still denies history of congestive heart failure. His EKG shows no STEMI. Laboratory 10/22/18 10/22/18 10/22/18 10:25 10:25 10:25 WBC 10.7 H RBC 5.35 Hgb 16.1 Hct 47.3 MCV 88 MCH 30.1 MCHC 34.1 RDW 15.0 H Plt Count 273 Total Counted 100 Seg Neutrophils % Not Reportable Seg Neuts % (Manual) 87 H Lymphocytes % Not Reportable Lymphocytes % (Manual) 1 L Atypical Lymphs % 2 Monocytes % Not Reportable Monocytes % (Manual) 10 Eosinophils % Not Reportable Eosinophils % (Manual) 0 Basophils % Not Reportable Basophils % (Manual) 0 Absolute Neutrophils Not Reportable Abs Neuts (Manual) 9.3 H Absolute Lymphocytes Not Reportable Abs Lymphs (Manual) 0.3 L Absolute Monocytes Not Reportable Abs Monocytes (Manual) 1.1 Absolute Eosinophils Not Reportable Absolute Eos (Manual) 0.0 Absolute Basophils Not Reportable Abs Basophils (Manual) 0.0 Platelet Comment ADEQUATE RBC Morph Comment NORMO-CYTIC/CHROMIC Sodium 134.7 L Potassium 4.8 Chloride 93 L Carbon Dioxide 31 H Anion Gap 11 BUN 23 H Creatinine 1.00 Est GFR ( Amer) > 60 Est GFR (Non-Af Amer) > 60 Glucose 113 H Calcium 10.3 H Total Bilirubin 0.6 Direct Bilirubin 0.3 Neonat Total Bilirubin Not Reportable Neonat Direct Bilirubin Not Reportable Neonat Indirect Bili Not Reportable AST 71 H ALT 76 H Alkaline Phosphatase 116 Creatine Kinase 408 H CK-MB (CK-2) 11.70 H Troponin I 0.064 Total Protein 9.0 H Albumin 4.8 10/22/18 12:56 Patient's ABG shows hypoxia with no acid-base decompensation. His chest x-ray shows pulmonary edema. Patient clinically does not have pneumonia and ant ibiotics will be held. His symptoms are likely related to new onset congestive heart failure. Patient will be admitted to the hospital for his hypoxia and pulmonary edema. Case discussed with Dr. Yost who has accepted admission. Patient is still breathing comfortably on his nasal cannula oxygen, his O2 was increased. - Vital Signs Vital signs: Temp Pulse Resp BP Pulse Ox 97.6 F 24 H 118/69 93 10/22/18 10:48 10/22/18 12:01 10/22/18 12:01 10/22/18 12:01 - Laboratory Result Diagrams: 10/22/18 10:25 10/22/18 10:25 Laboratory results interpreted by me: 10/22/18 10/22/18 10/22/18 10:25 10:25 10:25 WBC 10.7 H RDW 15.0 H Seg Neuts % (Manual) 87 H Lymphocytes % (Manual) 1 L Abs Neuts (Manual) 9.3 H Abs Lymphs (Manual) 0.3 L ABG pO2 ABG HCO3 ABG Total CO2 ABG O2 Saturation Sodium 134.7 L Chloride 93 L Carbon Dioxide 31 H BUN 23 H Glucose 113 H Calcium 10.3 H AST 71 H ALT 76 H Creatine Kinase 408 H CK-MB (CK-2) 11.70 H Total Protein 9.0 H 10/22/18 12:27 WBC RDW Seg Neuts % (Manual) Lymphocytes % (Manual) Abs Neuts (Manual) Abs Lymphs (Manual) ABG pO2 64.0 L ABG HCO3 26.9 H ABG Total CO2 28.1 H ABG O2 Saturation 93.4 L Sodium Chloride Carbon Dioxide BUN Glucose Calcium AST ALT Creatine Kinase CK-MB (CK-2) Total Protein - EKG Interpretation by Me Additional EKG results interpreted by me: 10/22/18 12:05 Interpreted by myself 1050: Normal sinus rhythm, rate 80, normal axis, no ectopy, no ST elevation, no significant change from 03/22/18 Discharge - Discharge Clinical Impression: Hypoxia Pulmonary edema Qualifiers: Chronicity: acute Qualified Code(s): J81.0 - Acute pulmonary edema Dyspnea Qualifiers: Dyspnea type: dyspnea on exertion Qualified Code(s): R06.09 - Other forms of dyspnea Condition: Stable Disposition: ADMITTED INPATIENT Admitting Provider: Hospitalist Unit Admitted: Telemetry Referrals: RADHA BOB FNP [Primary Care Provider] - Follow up as needed
--- NOTE | 2018-10-22 12:07 | RADIOLOGY REPORT (SQ) ---
EXAM DESCRIPTION: CHEST SINGLE VIEW COMPLETED DATE/TIME: 10/22/2018 11:46 am REASON FOR STUDY: bed 1 db COMPARISON: None. FINDINGS: Single-view chest AP portable upright at approximately 1138 hours. Low lung volumes with patchy edema/infiltrates bilaterally. Probable congestive failure although the differential includes aspiration and pneumonia. No gross pneumothorax. TECHNICAL DOCUMENTATION: JOB ID: [id number] Reading location - IP/workstation name: [email or web address]
[2018-10-22 12:35] LABS: ARTERIAL BLOOD BASE EXCESS 2.9 mmol/L; ARTERIAL BLOOD H2CO3 1.19 mmol/L (1.05-1.35); ARTERIAL BLOOD HCO3 26.9 mmol/L (20-24); ARTERIAL BLOOD O2 SATURATION 93.4 % (94-98); ARTERIAL BLOOD PCO2 39.4 mmHg (35-45); ARTERIAL BLOOD PH 7.45 (7.35-7.45); ARTERIAL BLOOD TOTAL CO2 28.1 mmol/L (23-27)
[2018-10-22 12:36] LABS: ARTERIAL BLOOD FIO2 2L
[2018-10-22] MEDS ORDERED: ACETAMINOPHEN 325 MG TABLET PO PRN (14:02)
[2018-10-22] MEDS ORDERED: DEXTROSE 5%-WATER 250 ML with NOREPINEPHRINE BITARTRATE 4 MG IV PRN ×2 (14:13)
--- NOTE | 2018-10-22 14:25 | PDOC H&P ---
History of Present Illness Admission Date/PCP: 10/22/18 13:47 TAYLER MARES History of Present Illness: ALBA MARCANO is a 73 year old male Patient presents to the emergency room with complaints of increasing. difficulty breathing and shortness of breath patient states the symptoms have actually been going on for quite a few months however it got worse over the last few days also. He got to the point that he could not ambulate without getting short of breath. He also describes orthopnea. Patient was admitted to this hospital sometime last year in March fact twice and was diagnosed with COPD. He said he quit smoking at that time. He looks like he had been doing somewhat well since then although says he did notice that his dyspnea appeared to be getting worse. He denies any prior history of CHF. Or prior coronary artery disease or TN. Patient currently denies any chest pain, leg swelling, abdominal swelling, his main symptoms appears to be the progressive shortness of breath. Past Medical History Cardiac Medical History: Reports: Hypertension Denies: Atrial Fibrillation, Congestive Heart Failure Pulmonary Medical History: Reports: Chronic Obstructive Pulmonary Disease (COPD) Neurological Medical History: Denies: Migraine Endocrine Medical History: Denies: Diabetes Mellitus Type 1, Diabetes Mellitus Type 2, Hyperthyroidism, Hypothyroidism Renal/ Medical History: Denies: End Stage Renal Disease Malignancy Medical History: Reports: Skin Cancer GI Medical History: Denies: Crohn's Disease, Ulcerative Colitis Musculoskeltal Medical History: Denies: Fibromyalgia Hematology: Denies: Hemophilia, Sickle Cell Disease Infectious Medical History: Denies: Clostridium Difficile, HIV Past Surgical History Past Surgical History: Reports: Other - HERNIA REPAIR Social History Smoking Status: Former Smoker Frequency of Alcohol Use: None Hx Recreational Drug Use: No Drugs: None Hx Prescription Drug Abuse: No - Advance Directive Resuscitation Status: Full Code Family History Family History: CAD, DM, Other - MOTHER - HEMORRHAGIC STROKE Parental Family History Reviewed: Yes Children Family History Reviewed: Yes Sibling(s) Family History Reviewed.: Yes Medication/Allergy Home Medications: Albuterol Sulfate [Proair HFA Inhalation Aerosol 8.5 gm MDI] 1 puff IH Q4HP PRN 10/22/18 Albuterol Sulfate [Ventolin 0.083% Neb 2.5 mg/3 mL Ampul] 2.5 mg NEB RTQ6HP PRN 10/22/18 Atenolol [Tenormin 100 mg Tablet] 100 mg PO QPM 10/22/18 Montelukast Sodium [Singulair 10 mg Tablet] 10 mg PO QPM 10/22/18 Prednisone [Deltasone 10 mg Tablet] 10 mg PO QAM 10/22/18 Allergies/Adverse Reactions: No Known Allergies Allergy (Unverified 03/04/18 08:57) Physical Exam Vital Signs: Temp Pulse Resp BP Pulse Ox 97.6 F 17 110/67 99 10/22/18 10:48 10/22/18 13:03 10/22/18 13:03 10/22/18 13:03 Intake & Output 10/21/18 10/22/18 10/23/18 06:59 06:59 06:59 Weight 90.8 kg General appearance: PRESENT: no acute distress, well-developed, well-nourished Head exam: PRESENT: atraumatic, normocephalic Eye exam: PRESENT: conjunctiva pink, EOMI, PERRLA. ABSENT: scleral icterus Ear exam: PRESENT: normal external ear exam Mouth exam: PRESENT: moist, tongue midline Neck exam: ABSENT: carotid bruit, JVD, lymphadenopathy, thyromegaly Respiratory exam: PRESENT: clear to auscultation dmitri, rhonchi - basal rhonchi. ABSENT: rales, wheezes Cardiovascular exam: PRESENT: RRR. ABSENT: diastolic murmur, rubs, systolic murmur Pulses: PRESENT: normal dorsalis pedis pul Vascular exam: PRESENT: normal capillary refill GI/Abdominal exam: PRESENT: distended, normal bowel sounds, soft. ABSENT: ascites, guarding, mass, organolmegaly, rebound, tenderness Rectal exam: PRESENT: deferred Extremities exam: PRESENT: full ROM. ABSENT: calf tenderness, clubbing, pedal edema Neurological exam: PRESENT: alert, awake, oriented to person, oriented to place, oriented to time, oriented to situation, CN II-XII grossly intact. ABSENT: motor sensory deficit Psychiatric exam: PRESENT: appropriate affect, normal mood. ABSENT: homicidal ideation, suicidal ideation Skin exam: PRESENT: dry, intact, warm. ABSENT: cyanosis, rash Results Laboratory Results: 10/22/18 10:25 10/22/18 10:25 10/22/18 10/22/18 10/22/18 10:25 10:25 12:27 WBC 10.7 H RBC 5.35 Hgb 16.1 Hct 47.3 MCV 88 MCH 30.1 MCHC 34.1 RDW 15.0 H Plt Count 273 Seg Neutrophils % Not Reportable Lymphocytes % Not Reportable Monocytes % Not Reportable Eosinophils % Not Reportable Basophils % Not Reportable Absolute Neutrophils Not Reportable Absolute Lymphocytes Not Reportable Absolute Monocytes Not Reportable Absolute Eosinophils Not Reportable Absolute Basophils Not Reportable Carbonic Acid 1.19 HCO3/H2CO3 Ratio 22:1 ABG pH 7.45 ABG pCO2 39.4 ABG pO2 64.0 L ABG HCO3 26.9 H ABG O2 Saturation 93.4 L ABG Base Excess 2.9 FiO2 2L Sodium 134.7 L Potassium 4.8 Chloride 93 L Carbon Dioxide 31 H Anion Gap 11 BUN 23 H Creatinine 1.00 Est GFR ( Amer) > 60 Est GFR (Non-Af Amer) > 60 Glucose 113 H Calcium 10.3 H Total Bilirubin 0.6 AST 71 H ALT 76 H Alkaline Phosphatase 116 Total Protein 9.0 H Albumin 4.8 10/22/18 10/22/18 10:25 10:25 Creatine Kinase 408 H CK-MB (CK-2) 11.70 H Troponin I 0.064 EKG Comments: Mild sinus rhythm with no acute ST changes Assessment & Plan - Diagnosis (1) Elevated troponin Is this a current diagnosis for this admission?: Yes Plan: This may be a demand ischemia, will follow up with repeat troponin EKG shows sinus rhythm with no acute ST changes. He likely will need a stress test when clinically stable further consults as needed (2) Acute and chronic respiratory failure Qualifiers: Is this a current diagnosis for this admission?: Yes Plan: Cont Oxygen, Duoneb, Patient is not hypoxemic, no indication for CTA at this time (3) Dyspnea Qualifiers: Dyspnea type: dyspnea on exertion Qualified Code(s): R06.09 - Other forms of dyspnea Is this a current diagnosis for this admission?: Yes Plan: r/o chf though with normal BNP, paucity of clinical findings to suggest CHF this may be a respiratory issue, Will obtain Echo - Time Time Spent: 50 to 70 Minutes Smoking Cessation Education: 3 to 10 minutes Medications reviewed and adjusted accordingly: Yes Anticipated discharge: Home Within: within 72 hours - Inpatient Certification Based on my medical assessment, after consideration of the patient's comorbidities, presenting symptoms, or acuity I expect that the services needed warrant INPATIENT care.: Yes Medical Necessity: Need For Continuous Telemetry Monitoring, Risk of Complication if Not Cared For in Hospital
[2018-10-22 14:54] LABS: HEMATOCRIT 42.8 % (37.9-51.0); HEMOGLOBIN 14.5 g/dL (13.5-17.0); MEAN CORPUSCULAR HEMOGLOBIN 29.7 pg (27.0-33.4); MEAN CORPUSCULAR VOLUME 88 fl (80-97); PLATELET COUNT 225 10^3/uL (150-450); RED CELL DISTRIBUTION WIDTH 14.9 % (11.5-14.0); WHITE BLOOD COUNT 10.4 10^3/uL (4.0-10.5)
[2018-10-22 15:03] LABS: TROPONIN I 0.064 ng/mL
[2018-10-22] MEDS ORDERED: FUROSEMIDE INJ/PF 20 MG/2 ML SDV IV ONE (16:00)
[2018-10-22] MEDS ORDERED: FUROSEMIDE INJ/PF 40 MG/4 ML SDV IV ONE (16:30)
--- NOTE | 2018-10-22 17:56 | EKG REPORT ---
SEVERITY:- NORMAL ECG - SINUS RHYTHM : Confirmed by: Destiney Louie 22-Oct-2018 17:56:19
[2018-10-22] MEDS ORDERED: (PENDING PHARMACY ID) (Atenolol [Tenormin 100 Mg Tablet] 100 MG) PO SCH (18:00)
[2018-10-22] MEDS: MONTELUKAST SODIUM 10 MG TABLET PO SCH (18:24)
[2018-10-22] MEDS: ATENOLOL 50 MG TABLET PO SCH (18:24)
[2018-10-22 20:07] LABS: APPEARANCE,URINE CLEAR; BILIRUBIN,URINE NEGATIVE (NEGATIVE); COLOR,URINE YELLOW; GLUCOSE, URINE NEGATIVE (NEGATIVE); KETONES,URINE NEGATIVE (NEGATIVE); LEUKOCYTE ESTERASE,URINE NEGATIVE (NEGATIVE); NITRITE,URINE NEGATIVE (NEGATIVE); PROTEIN,URINE NEGATIVE (NEGATIVE); URINE SPECIFIC GRAVITY 1.014
[2018-10-22] MEDS: GUAIFENESIN 600 MG TABLET.SA PO SCH (21:08)
[2018-10-22] MEDS: FAMOTIDINE 20 MG TABLET PO SCH (21:08)
[2018-10-23 06:27] LABS: ANION GAP 11 (5-19); BLOOD UREA NITROGEN 30 mg/dL (7-20); CALCIUM 9.6 mg/dL (8.4-10.2); CARBON DIOXIDE 26 mmol/L (22-30); CHLORIDE 98 mmol/L (98-107); GLUCOSE 113 mg/dL (75-110); POTASSIUM 4.5 mmol/L (3.6-5.0)
[2018-10-23] MEDS: PREDNISONE 10 MG TABLET PO SCH (07:44)
[2018-10-23] MEDS: ENOXAPARIN SODIUM INJ 40 MG/0.4 ML DISP.SYRIN SUBCUT SCH (09:52)
[2018-10-23] MEDS: FAMOTIDINE 20 MG TABLET PO SCH ×2 (09:52→21:52)
[2018-10-23] MEDS: GUAIFENESIN 600 MG TABLET.SA PO SCH ×2 (09:52→21:52)
[2018-10-23] MEDS ORDERED: FUROSEMIDE INJ/PF 20 MG/2 ML SDV IV SCH (10:00)
[2018-10-23] MEDS ORDERED: ALBUTEROL SULFATE HFA (90 MCG/PUFF) 200 PUFF/8.5 GM MDI IH PRN (14:56)
[2018-10-23] MEDS ORDERED: ALBUTEROL SULFATE 0.083% NEB 2.5 MG/3 ML AMPUL NEB PRN (14:56)
--- NOTE | 2018-10-23 15:11 | PDOC PROGRESS REPORT ---
Subjective Progress Note for:: 10/23/18 Subjective:: 10/23/[id number] male admitted for increasing on shortness of breath and difficulty in breathing. He is still complaining of short winded walking the less than 20 feet. He is anxious to see the knurling machine tender and also requesting to be seen by the supervisor electronics inspection. Reason For Visit: ACUTE ON CHRONIC RESPIRATORY FAILURE,CHF Physical Exam Vital Signs: Temp Pulse Resp BP Pulse Ox 97.9 F 58 L 18 108/58 L 100 10/23/18 11:44 10/23/18 11:44 10/23/18 11:44 10/23/18 11:44 10/23/18 11:44 Intake & Output 10/22/18 10/23/18 10/24/18 06:59 06:59 06:59 Intake Total 237 Output Total 250 Balance -250 237 Weight 86.6 kg General appearance: PRESENT: no acute distress Head exam: PRESENT: atraumatic Eye exam: PRESENT: PERRLA Neck exam: ABSENT: carotid bruit, JVD, lymphadenopathy, thyromegaly Respiratory exam: PRESENT: decreased breath sounds Cardiovascular exam: PRESENT: RRR. ABSENT: diastolic murmur, rubs, systolic murmur GI/Abdominal exam: PRESENT: normal bowel sounds, soft. ABSENT: distended, guarding, mass, organolmegaly, rebound, tenderness Extremities exam: PRESENT: full ROM. ABSENT: calf tenderness, clubbing, pedal edema Neurological exam: PRESENT: alert, awake, oriented to person, oriented to place, oriented to time, oriented to situation, CN II-XII grossly intact. ABSENT: motor sensory deficit Results Laboratory Results: 10/22/18 14:40 10/23/18 05:27 10/22/18 10/23/18 19:45 05:27 Sodium 135.0 L Potassium 4.5 Chloride 98 Carbon Dioxide 26 Anion Gap 11 BUN 30 H Creatinine 0.83 Est GFR ( Amer) > 60 Est GFR (Non-Af Amer) > 60 Glucose 113 H Calcium 9.6 Urine Color YELLOW Urine Appearance CLEAR Urine pH 7.0 Ur Specific Blanchard 1.014 Urine Protein NEGATIVE Urine Glucose (UA) NEGATIVE Urine Ketones NEGATIVE Urine Blood NEGATIVE Urine Nitrite NEGATIVE Ur Leukocyte Esterase NEGATIVE Urine WBC (Auto) 0 Urine RBC (Auto) 1 10/22/18 10/22/18 10/22/18 10:25 10:25 14:14 Creatine Kinase 408 H CK-MB (CK-2) 11.70 H Troponin I 0.064 0.064 NT-Pro-B Natriuret Pep 150 10/22/18 22:25 Creatine Kinase CK-MB (CK-2) Troponin I 0.051 NT-Pro-B Natriuret Pep Assessment & Plan - Diagnosis (1) Acute and chronic respiratory failure Qualifiers: Is this a current diagnosis for this admission?: Yes Plan: 10/23/2018-patient is admitted with acute on chronic respiratory failure. He is on oxygen 4 L nasal cannula. Pulse oxes right now 100% on 4 L. Patient is still getting short winded even walking up to the restroom. Planning to do the CT chest without contrast today. Requested for pulmonology consult. Plan is to continue oxygen continue prednisone and started on albuterol nebulizations on i pratropium nebulizations. (2) Elevated troponin Is this a current diagnosis for this admission?: Yes Plan: This may be a demand ischemia, will follow up with repeat troponin EKG shows sinus rhythm with no acute ST changes. He likely will need a stress test when clinically stable further consults as needed 10/23/2018 slightly elevated troponins probably secondary to demand ischemia. Latest troponin is 0.05. She denies any complaints of chest pains. EKGs are without any acute changes. (3) Dyspnea Qualifiers: Dyspnea type: dyspnea on exertion Qualified Code(s): R06.09 - Other forms of dyspnea Is this a current diagnosis for this admission?: Yes Plan: 10/23/2018-patient came in with shortness of breath BNP was normal 150 echocardiogram report is pending. Troponins are slightly elevated may be secondary to demand ischemia due to COPD. - Time Time Spent with patient: 15-24 minutes Medications reviewed and adjusted accordingly: Yes Anticipated discharge: Home
[2018-10-23] MEDS ORDERED: LEVALBUTEROL HCL NEB 1.25 MG/3 ML AMPUL NEB SCH (16:00)
[2018-10-23] MEDS: ATENOLOL 50 MG TABLET PO SCH (16:59)
[2018-10-23] MEDS: MONTELUKAST SODIUM 10 MG TABLET PO SCH (17:13)
--- NOTE | 2018-10-23 18:55 | RADIOLOGY REPORT (SQ) ---
EXAM DESCRIPTION: CT CHEST WITHOUT COMPLETED DATE/TIME: 10/23/2018 6:20 pm REASON FOR STUDY: copd COMPARISON: 03/22/2018 TECHNIQUE: CT scan performed of the chest without intravenous contrast. Images reviewed with lung, soft tissue and bone windows. Reconstructed coronal and sagittal MPR images reviewed. All images st ored on PACS. All CT scanners at this facility use dose modulation, iterative reconstruction, and/or weight based d osing when appropriate to reduce radiation dose to as low as reasonably achievable (ALARA). [facility]: Dose Right [facility]: CareDose [facility]: Dose Right [facility]: Teradose 4D [facility]: [employer] Technologies RADIATION DOSE: CT Rad equipment meets quality standard of care and radiation dose reduction techniq ues were employed. CTDIvol: 15.8 mGy. DLP: 631 mGy-cm. mGy. LIMITATIONS: No technical limitations. 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 No masses. No effusion. No focal infiltrates. HILAR AND MEDIASTINAL STRUCTURES: No identified masses or abnormal nodes. No obvious aneurysm. HEART AND VASCULAR STRUCTURES: No aneurysm or pericardial effusion. Coronary atherosclerosis. UPPER ABDOMEN: A couple gallstones are suggested. There are irregular areas of opacification the per iureteral fat, particularly on the left with there is a 4 cm somewhat spiculated mass just medial to the spleen and posterior to and separate from the adrenal gland. A smaller spiculated area of densit y is seen in the perirenal fat on the left on image 64. THYROID AND OTHER SOFT TISSUES: No masses. No adenopathy. BONES: No significant finding. HARDWARE: None in the chest. OTHER: No other significant findings. IMPRESSION: 1. Pulmonary fibrosis. 2. Coronary atherosclerosis. 3. Cholelithiasis. 4. There are spiculated areas of masslike density in the left perirenal area of uncertain etiology. Concerning for neoplasm. TECHNICAL DOCUMENTATION: JOB ID: [id number] Quality ID # [id number]: Final reports with documentation of one or more dose reduction techniques (e.g., Au tomated exposure control, adjustment of the mA and/or kV according to patient size, use of iterative reconstruction technique) 2010 [employer]- All Rights Reserved Reading location - IP/workstation name: [email or web address]
--- NOTE | 2018-10-23 23:05 | XCELERA REPORT ---
[address] [address] Transthoracic Echocardiogram Report Name: ALBA MARCANO Age: 73 yrs Gender: Male : 1945 Patient Status: Inpatient Patient Location: [address] [place] [address] Study Date: 10/22/2018 05:20 PM Height: 71 in Weight: 200 lb BSA: 2.1 m2 Procedure: A two-dimensional transthoracic echocardiogram with color flow and Doppler was performed. Study Quality: Poor. Images were not obtained from all of the standard acoustic windows due to the limited scope of the study. Poor endocardial visualisation. Reason For Study: Progressive dyspnea History: Progressive dyspnea. Ordering Physician: JACQUELIN LORA Performed By: Aissatou Hernandez Interpretation Summary The left ventricle is grossly normal size. No True apical 2 chamber views obtained.Hence cannot comment on the apical anterior , the basal anterior, the basal inferior and apical inferior keane.The mid anterior , the mid inferior and the rest of the LV keane contract normally. .Normal LVEF is normal and is greater than 60% in the limited views. There is normal left ventricular wall thickness. Doppler measurements suggest impaired left ventricular relaxation, which is associated with grade I/IV or mild diastolic dysfunction Right atrium not well visualized secondary to technical limitations The left atrial size is normal. There is no evidence of mitral valve prolapse. There is no mitral valve stenosis. No aortic regurgitation is present. The tricuspid valve is not well visualized secondary to technical limitations cannt comment on TR or RVSP. The aortic root is not well visualized. The inferior vena cava was not visualized There is no pericardial effusion. MMode/2D Measurements & Calculations RVDd: 2.6 cm LVIDd: 4.0 cm FS: 27.3 % Ao root diam: 3.5 cm IVSd: 1.2 cm LVIDs: 2.9 cm EDV(Teich): 71.6 ml Ao root area: 9.8 cm2 LVPWd: 0.95 cm ESV(Teich): 33.2 ml LA dimension: 3.4 cm EF(Teich): 53.6 % Doppler Measurements & Calculations MV E max lilli: MV P1/2t max lilli: Ao V2 max: LV V1 max P.9 cm/sec 63.4 cm/sec 95.6 cm/sec 2.4 mmHg MV A max lilli: MV P1/2t: 47.4 msec Ao max PG: LV V1 max: 67.6 cm/sec MVA(P1/2t): 4.6 cm2 3.7 mmHg 77.5 cm/sec MV E/A: 0.69 MV dec slope: 391.5 cm/sec2 MV dec time: 0.18 sec TV V2 max: PA V2 max: TR max lilli: MV P1/2t-pr_phl: 93.7 cm/sec 84.2 cm/sec 153.0 cm/sec 47.4 msec TV max PG: PA max P.8 mmHg TR max P.5 mmHg 9.4 mmHg Left Ventricle The left ventricle is grossly normal size. There is normal left ventricular wall thickness. No True apical 2 chamber views obtained.Hence cannot comment on the apical anterior , the basal anterior, the basal inferior and apical inferior keane.The mid anterior , the mid inferior and the rest of the LV keane contract normally. .Normal LVEF is normal and is greater than 60% in the limited views. Doppler measurements suggest impaired left ventricular relaxation, which is associated with grade I/IV or mild diastolic dysfunction. Right Ventricle The right ventricle is not well visualized secondary to technical limitations. Atria Right atrium not well visualized secondary to technical limitations. The left atrial size is normal. Mitral Valve There is no evidence of mitral valve prolapse. There is no mitral valve stenosis. There is no mitral regurgitation noted. Aortic Valve There is no aortic valve stenosis. No aortic regurgitation is present. Tricuspid Valve The tricuspid valve is not well visualized secondary to technical limitations. cannt comment on TR or RVSP. Pulmonic Valve The pulmonic valve is not well visualized. Great Vessels The aortic root is not well visualized. The inferior vena cava was not visualized. Effusions There is no pericardial effusion. : JACQUELIN LORA > Kierra Milligan
[2018-10-24 05:03] LABS: ABSOLUTE LYMPHOCYTES (AUTO) 0.7 10^3/uL (0.5-4.7); ABSOLUTE MONOCYTES (AUTO) 0.8 10^3/uL (0.1-1.4); ABSOLUTE NEUT (AUTO) 9.2 10^3/uL (1.7-8.2); BASOPHILS % (AUTO) 0.3 % (0-2); EOSINOPHILS % (AUTO) 0.5 % (0-6); HEMATOCRIT 40.3 % (37.9-51.0); HEMOGLOBIN 14.1 g/dL (13.5-17.0); LYMPHOCYTES % (AUTO) 6.3 % (13-45); MEAN CORPUSCULAR HEMOGLOBIN 30.2 pg (27.0-33.4); MEAN CORPUSCULAR HGB CONC 34.9 g/dL (32.0-36.0); MEAN CORPUSCULAR VOLUME 86 fl (80-97); MONOCYTES % (AUTO) 7.6 % (3-13); PLATELET COUNT 245 10^3/uL (150-450); RED BLOOD COUNT 4.66 10^6/uL (4.35-5.55); RED CELL DISTRIBUTION WIDTH 14.9 % (11.5-14.0); SEGMENTED NEUTROPHILS % (AUTO) 85.3 % (42-78); TOTAL CELLS COUNTED % (AUTO) 100 %; WHITE BLOOD COUNT 10.7 10^3/uL (4.0-10.5)
[2018-10-24 05:18] LABS: ALANINE AMINOTRANSFERASE 74 U/L (21-72); ALBUMIN 3.8 g/dL (3.5-5.0); ALKALINE PHOSPHATASE 67 U/L (38-126); ANION GAP 9 (5-19); ASPARTATE AMINO TRANSFERASE 56 U/L (17-59); BILIRUBIN,DIRECT 0.3 mg/dL (0.0-0.4); BILIRUBIN,TOTAL 0.6 mg/dL (0.2-1.3); BLOOD UREA NITROGEN 34 mg/dL (7-20); CALCIUM 9.3 mg/dL (8.4-10.2); CARBON DIOXIDE 27 mmol/L (22-30); CHLORIDE 98 mmol/L (98-107); GLUCOSE 95 mg/dL (75-110); POTASSIUM 3.7 mmol/L (3.6-5.0); SODIUM 133.8 mmol/L (137-145); TOTAL PROTEIN 7.1 g/dL (6.3-8.2)
[2018-10-24] MEDS: PREDNISONE 10 MG TABLET PO SCH (10:16)
[2018-10-24] MEDS: ENOXAPARIN SODIUM INJ 40 MG/0.4 ML DISP.SYRIN SUBCUT SCH (10:17)
[2018-10-24] MEDS: FAMOTIDINE 20 MG TABLET PO SCH ×2 (10:17→21:51)
[2018-10-24] MEDS: GUAIFENESIN 600 MG TABLET.SA PO SCH ×2 (10:17→21:51)
--- NOTE | 2018-10-24 10:24 | PDOC PROGRESS REPORT ---
Subjective Progress Note for:: 10/24/18 Subjective:: 10/23/[id number] male admitted for increasing on shortness of breath and difficulty in breathing. He is still complaining of short winded walking the less than 20 feet. He is anxious to see the corporate responsibility officer and also requesting to be seen by the computer field technician. 10/24/2018-no acute events in the last 24 hours. Patient is afebrile. CT chest without contrast was done yesterday indicating pulmonary fibrosis. No evidence of any fluid overload. Patient is still complaining of shortness of breath with minimal activity. Physical therapy is working with the patient. pulmonary consult was requested. Reason For Visit: ACUTE ON CHRONIC RESPIRATORY FAILURE,CHF Physical Exam Vital Signs: Temp Pulse Resp BP Pulse Ox 97.6 F 64 16 104/59 L 98 10/24/18 07:31 10/24/18 07:31 10/24/18 07:31 10/24/18 07:31 10/24/18 07:31 Intake & Output 10/23/18 10/24/18 10/25/18 06:59 06:59 06:59 Intake Total 1054 Output Total 250 0 Balance -250 1054 Weight 86.6 kg 88.5 kg General appearance: PRESENT: no acute distress Head exam: PRESENT: atraumatic Eye exam: PRESENT: PERRLA Mouth exam: PRESENT: moist, tongue midline Neck exam: ABSENT: carotid bruit, JVD, lymphadenopathy, thyromegaly Respiratory exam: PRESENT: decreased breath sounds Cardiovascular exam: PRESENT: RRR. ABSENT: diastolic murmur, rubs, systolic murmur Pulses: PRESENT: normal dorsalis pedis pul GI/Abdominal exam: PRESENT: normal bowel sounds, soft. ABSENT: distended, guarding, mass, organolmegaly, rebound, tenderness Extremities exam: PRESENT: full ROM. ABSENT: calf tenderness, clubbing, pedal edema Neurological exam: PRESENT: alert, awake, oriented to person, oriented to place, oriented to time, oriented to situation, CN II-XII grossly intact. ABSENT: motor sensory deficit Results Laboratory Results: 10/24/18 04:44 10/24/18 04:44 10/24/18 10/24/18 04:44 04:44 WBC 10.7 H RBC 4.66 Hgb 14.1 Hct 40.3 MCV 86 MCH 30.2 MCHC 34.9 RDW 14.9 H Plt Count 245 Seg Neutrophils % 85.3 H Lymphocytes % 6.3 L Monocytes % 7.6 Eosinophils % 0.5 Basophils % 0.3 Absolute Neutrophils 9.2 H Absolute Lymphocytes 0.7 Absolute Monocytes 0.8 Absolute Eosinophils 0.0 Absolute Basophils 0.0 Sodium 133.8 L Potassium 3.7 Chloride 98 Carbon Dioxide 27 Anion Gap 9 BUN 34 H Creatinine 0.91 Est GFR ( Amer) > 60 Est GFR (Non-Af Amer) > 60 Glucose 95 Calcium 9.3 Magnesium 2.3 Total Bilirubin 0.6 AST 56 ALT 74 H Alkaline Phosphatase 67 Total Protein 7.1 Albumin 3.8 10/22/18 10/22/18 10/22/18 10:25 10:25 14:14 Creatine Kinase 408 H CK-MB (CK-2) 11.70 H Troponin I 0.064 0.064 NT-Pro-B Natriuret Pep 150 10/22/18 22:25 Creatine Kinase CK-MB (CK-2) Troponin I 0.051 NT-Pro-B Natriuret Pep Impressions: Chest CT 10/23/18 00:00 IMPRESSION: 1. Pulmonary fibrosis. 2. Coronary atherosclerosis. 3. Cholelithiasis. 4. There are spiculated areas of masslike density in the left perirenal area of uncertain etiology. Concerning for neoplasm. Assessment & Plan - Diagnosis (1) Acute and chronic respiratory failure Qualifiers: Is this a current diagnosis for this admission?: Yes Plan: 10/23/2018-patient is admitted with acute on chronic respiratory failure. He is on oxygen 4 L nasal cannula. Pulse oxes right now 100% on 4 L. Patient is still getting short winded even walking up to the restroom. Planning to do the CT chest without contrast today. Requested for pulmonology consult. Plan is to continue oxygen continue prednisone and started on albuterol nebulizations on ipratropium nebulizations. 10/24/2018-patient was admitted for acute on chronic respiratory failure pulse ox today is 98% on 2 L comfortably in the bed but complaining of shortness of breath with minimal activity. CT chest was done yesterday without contrast it shows pulmonary fibrosis. No evidence of any fluid overload. No pneumonia. Patient is on p.o. prednisone, albuterol and ipratropium nebulizations. Waiting for pulmonary evaluation. physical therapy consult was also requested. (2) Elevated troponin Is this a current diagnosis for this admission?: Yes Plan: This may be a demand ischemia, will follow up with repeat troponin EKG shows sinus rhythm with no acute ST changes. He likely will need a stress test when clinically stable further consults as needed 10/23/2018 slightly elevated troponins probably secondary to demand ischemia. Latest troponin is 0.05. She denies any complaints of chest pains. EKGs are without any acute changes. 10/24/2018-latest troponin is 0.05. Slightly elevated troponins may be secondary to ischemic demand due to chronic obstructive pulmonary disease. No complaints of chest pains from the patient. (3) Dyspnea Qualifiers: Dyspnea type: dyspnea on exertion Qualified Code(s): R06.09 - Other forms of dyspnea Is this a current diagnosis for this admission?: Yes Plan: 10/23/2018-patient came in with shortness of breath BNP was normal 150, echocardiogram report is pending. Troponins are slightly elevated may be secondary to demand ischemia due to COPD. 10/24/2018-pulse ox is 98% on [address] scan shows pulmonary fibrosis. He is also history of COPD on home oxygen at home. Plan is to continue prednisone, albuterol and ipratropium nebulizations. - Time Time Spent with patient: 15-24 minutes Medications reviewed and adjusted accordingly: Yes Anticipated discharge: Home
[2018-10-24] MEDS: IPRATROPIUM/ALBUTEROL 0.5-2.5 MG/3 ML AMPUL NEB PRN (11:10)
[2018-10-24] MEDS: ATENOLOL 50 MG TABLET PO SCH (18:17)
[2018-10-24] MEDS: MONTELUKAST SODIUM 10 MG TABLET PO SCH (18:17)
[2018-10-25 04:58] LABS: ABSOLUTE LYMPHOCYTES (AUTO) 0.6 10^3/uL (0.5-4.7); ABSOLUTE MONOCYTES (AUTO) 0.8 10^3/uL (0.1-1.4); ABSOLUTE NEUT (AUTO) 7.4 10^3/uL (1.7-8.2); BASOPHILS % (AUTO) 0.3 % (0-2); EOSINOPHILS % (AUTO) 0.4 % (0-6); HEMATOCRIT 40.6 % (37.9-51.0); HEMOGLOBIN 14.1 g/dL (13.5-17.0); LYMPHOCYTES % (AUTO) 6.6 % (13-45); MEAN CORPUSCULAR HEMOGLOBIN 30.2 pg (27.0-33.4); MEAN CORPUSCULAR HGB CONC 34.6 g/dL (32.0-36.0); MEAN CORPUSCULAR VOLUME 87 fl (80-97); MONOCYTES % (AUTO) 9.2 % (3-13); PLATELET COUNT 236 10^3/uL (150-450); RED BLOOD COUNT 4.65 10^6/uL (4.35-5.55); RED CELL DISTRIBUTION WIDTH 14.7 % (11.5-14.0); SEGMENTED NEUTROPHILS % (AUTO) 83.5 % (42-78); TOTAL CELLS COUNTED % (AUTO) 100 %; WHITE BLOOD COUNT 8.9 10^3/uL (4.0-10.5)
[2018-10-25 05:23] LABS: ALANINE AMINOTRANSFERASE 75 U/L (21-72); ALBUMIN 3.8 g/dL (3.5-5.0); ALKALINE PHOSPHATASE 68 U/L (38-126); ANION GAP 8 (5-19); ASPARTATE AMINO TRANSFERASE 58 U/L (17-59); BILIRUBIN,DIRECT 0.3 mg/dL (0.0-0.4); BILIRUBIN,TOTAL 0.6 mg/dL (0.2-1.3); BLOOD UREA NITROGEN 28 mg/dL (7-20); CALCIUM 9.3 mg/dL (8.4-10.2); CARBON DIOXIDE 28 mmol/L (22-30); CHLORIDE 99 mmol/L (98-107); GLUCOSE 85 mg/dL (75-110); SODIUM 134.9 mmol/L (137-145); TOTAL PROTEIN 7.1 g/dL (6.3-8.2)
[2018-10-25] MEDS: PREDNISONE 10 MG TABLET PO SCH (09:12)
[2018-10-25] MEDS: FAMOTIDINE 20 MG TABLET PO SCH ×2 (09:12→22:09)
[2018-10-25] MEDS: ENOXAPARIN SODIUM INJ 40 MG/0.4 ML DISP.SYRIN SUBCUT SCH (09:13)
[2018-10-25] MEDS: GUAIFENESIN 600 MG TABLET.SA PO SCH ×2 (09:13→22:09)
[2018-10-25 10:59] LABS: HEMATOCRIT 41.6 % (37.9-51.0); HEMOGLOBIN 14.1 g/dL (13.5-17.0); MEAN CORPUSCULAR HEMOGLOBIN 29.5 pg (27.0-33.4); MEAN CORPUSCULAR HGB CONC 33.9 g/dL (32.0-36.0); MEAN CORPUSCULAR VOLUME 87 fl (80-97); PLATELET COUNT 234 10^3/uL (150-450); RED BLOOD COUNT 4.78 10^6/uL (4.35-5.55); RED CELL DISTRIBUTION WIDTH 14.9 % (11.5-14.0); WHITE BLOOD COUNT 9.4 10^3/uL (4.0-10.5)
[2018-10-25 11:23] LABS: ABSOLUTE LYMPHOCYTES# (MANUAL) 0.6 10^3/uL (0.5-4.7); ABSOLUTE MONOCYTES # (MANUAL) 0.7 10^3/uL (0.1-1.4); ABSOLUTE NEUTROPHILS# (MANUAL) 8.1 10^3/uL (1.7-8.2); BASOPHILS % (MANUAL) 0 % (0-2); EOSINOPHILS % (MANUAL) 1 % (0-6); LYMPHOCYTES % (MANUAL) 6 % (13-45); MONOCYTES % (MANUAL) 7 % (3-13); SEGMENTED NEUTROPHILS % (MAN) 86 % (42-78); TOTAL CELLS COUNTED 100
[2018-10-25 11:24] LABS: ANISOCYTOSIS SLIGHT; PLATELET COMMENT ADEQUATE
[2018-10-25 11:25] LABS: PLATELET CLUMPS PRESENT
[2018-10-25] MEDS: IPRATROPIUM/ALBUTEROL 0.5-2.5 MG/3 ML AMPUL NEB PRN (11:29)
--- NOTE | 2018-10-25 18:07 | PROGRESS NOTE E ---
Progress Note NAME: ALBA MARCANO : 1945 AGE: 73Y DATE: 10/25/2018 ROOM: 321 SUBJECTIVE: The patient is a pleasant 73-year-old male who has a past medical history of COPD, acute on chronic respiratory failure, admitted with shortness of breath. The patient had COPD exacerbation and seen by top lift trimmer. CT scan showed pulmonary fibrosis. He is still hypoxic on oxygen. OBJECTIVE: GENERAL: Patient lying in bed, comfortable, not in distress. VITAL SIGNS: Temperature 97.3, heart rate 56, blood pressure 87/56, saturation is 92% on 2 liters. HEENT: Head normocephalic, atraumatic. Pupils equal, round, reactive to light and accommodation bilaterally. Extraocular movements intact. Ears: Tympanic membranes intact bilaterally. No discharge from the ears. No discharge from the nose. NECK: Supple. No increased JVD. No thyromegaly, no lymphadenopathy. CARDIOVASCULAR: Normal S1, S2. Regular rate and rhythm. No murmur, no gallop. RESPIRATORY: Bilateral crackles, wheezing. ABDOMEN: Soft, nontender. MUSCULOSKELETAL: No edema. NEUROLOGIC: Awake, alert. SKIN: No rash. LABORATORY DATA: White blood count is 8.9, hemoglobin 14.1, hematocrit 41. Sodium 135, potassium 4.0, carbon dioxide 28. Creatinine 0.7. ASSESSMENT: 1. ACUTE ON CHRONIC HYPOXIC RESPIRATORY FAILURE, SECONDARY TO PULMONARY FIBROSIS. 2. ELEVATED TROPONIN. 3. DYSPHAGIA. 4. HYPERTENSION. PLAN: Continue oxygen and nebulizer. DICTATING PHYSICIAN: MERRILL LONGORIA M.D. [id number] Y#: [id number] ID: [id number] JOB#: [id number] ACCT: [id number] cc: >
[2018-10-25] MEDS: MONTELUKAST SODIUM 10 MG TABLET PO SCH (18:08)
[2018-10-26 05:00] LABS: ALBUMIN 3.7 g/dL (3.5-5.0); ANION GAP 8 (5-19); BLOOD UREA NITROGEN 28 mg/dL (7-20); CALCIUM 9.2 mg/dL (8.4-10.2); CARBON DIOXIDE 29 mmol/L (22-30); CHLORIDE 98 mmol/L (98-107); GLUCOSE 82 mg/dL (75-110); PHOSPHORUS 3.8 mg/dL (2.5-4.5); SODIUM 134.5 mmol/L (137-145)
[2018-10-26] MEDS: ENOXAPARIN SODIUM INJ 40 MG/0.4 ML DISP.SYRIN SUBCUT SCH (09:10)
[2018-10-26] MEDS: GUAIFENESIN 600 MG TABLET.SA PO SCH (09:10)
[2018-10-26] MEDS: PREDNISONE 10 MG TABLET PO SCH (09:10)
[2018-10-26] MEDS: FAMOTIDINE 20 MG TABLET PO SCH (09:10)
[2018-10-26] MEDS: IPRATROPIUM/ALBUTEROL 0.5-2.5 MG/3 ML AMPUL NEB PRN (09:47)
[2018-10-26 13:11] VITALS: BP 92/42
[2018-10-26] MEDS ORDERED: ATENOLOL 50 MG TABLET PO SCH (18:00)
--- NOTE | 2018-10-27 10:47 | DISCHARGE SUMMARY E ---
Discharge Summary NAME: ALBA MARCANO : 1945 AGE: 73Y ADMITTED: 10/22/2018 DISCHARGED: 10/26/2018 ADMISSION DIAGNOSES: 1. Elevated troponin. 2. Hypoxic respiratory failure and dyspnea. DISCHARGE DIAGNOSES: 1. Hypoxic respiratory failure secondary to lung fibrosis. 2. Dyspnea. 3. Elevated troponin probably from hypoxemia. IMAGING: CT scan of the chest showed lung fibrosis. Chest x-ray unremarkable. HOSPITAL COURSE: The patient is a pleasant, 73-year-old male who was admitted on October 22 with hypoxic respiratory failure, dyspnea; was started on oxygen. The patient is on home oxygen. He had a CT scan without contrast that showed pulmonary fibrosis with *------* seen. Was [id number] recommended to continue oxygen and steroids. He is on prednisone 20 mg and follow up in the office and continue his nebulizer. He was also recommended pulmonary rehabilitation but this can be done as outpatient. The patient is stable today to be discharged home. He is lying in bed. PHYSICAL EXAMINATION: VITAL SIGNS: Temperature 97.4, heart rate 61, blood pressure 102/65, saturation is 97% on 2 liters. HEENT: Normocephalic, atraumatic. Pupils round, reactive to light and accommodation bilaterally. Ears: Tympanic membranes intact bilaterally. No discharge from the ears. No discharge from the nose. EXTREMITIES: Intact. NECK: Supple. No increased JVD. No thyromegaly. No lymphadenopathy. CARDIOVASCULAR: Normal S1 and S2. Regular rate and rhythm. No murmur. No Gallops. RESPIRATORY: Bilateral crackles. ABDOMEN: Soft. MUSCULOSKELETAL: No edema. NEUROLOGIC: Awake, alert. LABORATORY: White blood count 9.4, hemoglobin 14. Sodium 134, potassium 4.0, BUN 28, creatinine 0.9. ABG 7.4, CO2 is 39. PO2 is 64. DISCHARGE INSTRUCTIONS: Discharge patient home. MEDICATIONS: 1. Tenormin 100 mg daily. 2. Pepcid 20 mg twice a day. 3. Singulair 10 mg daily. 4. Prednisone 20 mg daily taper. 5. Tylenol p.r.n. 6. Albuterol inhaler. FOLLOWUP: Followup with *------*in 1 week. Follow up with primary care physician in 2 weeks. ACTIVITY: As tolerated. OTHER INSTRUCTION: Come to the emergency room if chest symptoms worsening. DICTATING PHYSICIAN: MERRILL LONGORIA M.D. [id number] Y#: [id number] ID: [id number] JOB#: [id number] ACCT: [id number] cc:Caleb AYALA M.D. >
== END 2018-10-26 13:53 | disposition home or self-care (01) | DRG 196 ==
LOC: ER 10:42 → EH 13:47 → 3S 16:16 → 3W 10-23 18:47
PROVIDERS: ADMIT Internal Medicine; ATTEND Internal Medicine
DX: J84.10 Pulmonary fibrosis, unspecified (principal); J96.21 Acute and chronic respiratory failure with hypoxia; J44.9 Chronic obstructive pulmonary disease, unspecified; I10 Essential (primary) hypertension; R74.8 Abnormal levels of other serum enzymes; Z99.81 Dependence on supplemental oxygen; Z79.52 Long term (current) use of systemic steroids; Z87.891 Personal history of nicotine dependence; Z82.49 Family history of ischemic heart disease and other diseases of the circulatory system; Z82.3 Family history of stroke; Z79.51 Long term (current) use of inhaled steroids
CPT/HCPCS: 36415; 71045; 71250; 80048; 80053; 80069; 81001; 81332; 82550; 82553; 82803; 83735; 83880; 84484; 85025; 85027; 90686; 93005; 93010; 93306; 94640; 96374; 99285; J1650; J1940; J2930; J3490; J7512; J7620

== ENCOUNTER 2019-07-26 12:00 | Inpatient (IN) | payer OTHER, MEDICARE ==
[2019-07-26] MEDS ORDERED: METHYLPREDNISOLONE INJ 125 MG/2 ML SDV ONE (12:23)
--- NOTE | 2019-07-26 12:23 | ER Document Report ---
ED Medical Screen (RME) - General Chief Complaint: Breathing Difficulty Stated Complaint: DIFFICULTY BREATHING Time Seen by Provider: 07/26/19 12:18 Primary Care Provider: RADHA BOB FNP [Primary Care Provider] - Follow up as needed Mode of Arrival: Medic Information source: Patient Notes: 74-year-old female presents to ED for shortness of breath. He does have a history of pulmonary fibrosis and shortness of breath. He is on O2 4 L at home. He came in by EMS with a O2 sat of 93% he states he is having increased shortness of breath over a period of time. He states he normally takes prednisone but he did cutting down to 10 mg he took his last dose today. His respirations are 22-24 he is having difficulty getting up and around to the shortness of breath. He gets short of breath even bending over forward. On 4 L right now he is satting 97% pulse is 100 respirations are 27 blood pressure is 113/75. Lungs are coarse. I have greeted and performed a rapid initial assessment of this patient. A comprehensive ED assessment and evaluation of the patient, analysis of test results and completion of medical decision making process will be conducted by an additional ED providers. TRAVEL OUTSIDE OF THE [place] IN LAST 30 DAYS: No - Related Data Allergies/Adverse Reactions: No Known Allergies Allergy (Unverified 03/04/18 08:57) Home Medications: Prednisone - Out of medication. Symbicort. Spiriva. Albuterol inhaler Past Medical History - Social History Chew tobacco use (# tins/day): No Frequency of alcohol use: None Drug Abuse: None - Past Medical History Cardiac Medical History: Reports: Hx Hypertension Denies: Hx Atrial Fibrillation, Hx Congestive Heart Failure Pulmonary Medical History: Reports: Hx COPD Neurological Medical History: Denies: Hx Migraine Endocrine Medical History: Denies: Hx Diabetes Mellitus Type 1, Hx Diabetes Mellitus Type 2, Hx Hyperthyroidism, Hx Hypothyroidism Renal/ Medical History: Denies: Hx End Stage Renal Disease, Hx Peritoneal Dialysis Malignancy Medical History: Reports Hx Skin Cancer GI Medical History: Denies: Hx Crohn's Disease, Hx Ulcerative Colitis Musculoskeltal Medical History: Denies Hx Fibromyalgia Psychiatric Medical History: Reports: Hx Depression - d/t hospital stays Infectious Medical History: Denies: Hx C-Diff, Hx HIV Past Surgical History: Reports: Other - HERNIA REPAIR Doctor's Discharge - Discharge Referrals: RADHA BOB, [facility] [Primary Care Provider] - Follow up as needed
[2019-07-26] MEDS ORDERED: METHYLPREDNISOLONE INJ 125 MG/2 ML SDV IV ONE (12:24)
[2019-07-26 12:48] LABS: HEMATOCRIT 47.7 % (37.9-51.0); HEMOGLOBIN 15.7 g/dL (13.5-17.0); MEAN CORPUSCULAR HEMOGLOBIN 29.3 pg (27.0-33.4); MEAN CORPUSCULAR VOLUME 89 fl (80-97); RED BLOOD COUNT 5.37 10^6/uL (4.35-5.55); RED CELL DISTRIBUTION WIDTH 15.4 % (11.5-14.0); WHITE BLOOD COUNT 12.7 10^3/uL (4.0-10.5)
[2019-07-26 12:55] LABS: ALKALINE PHOSPHATASE 97 U/L (38-126); ANION GAP 10 (5-19); ASPARTATE AMINO TRANSFERASE 63 U/L (17-59); BILIRUBIN,DIRECT 0.2 mg/dL (0.0-0.4); BILIRUBIN,TOTAL 0.7 mg/dL (0.2-1.3); BLOOD UREA NITROGEN 17 mg/dL (7-20); CALCIUM 9.6 mg/dL (8.4-10.2); CARBON DIOXIDE 28 mmol/L (22-30); CHLORIDE 96 mmol/L (98-107); CREATINE KINASE 589 U/L (55-170); GLUCOSE 116 mg/dL (75-110); POTASSIUM 4.2 mmol/L (3.6-5.0); TOTAL PROTEIN 8.1 g/dL (6.3-8.2)
[2019-07-26 13:14] LABS: ABSOLUTE LYMPHOCYTES# (MANUAL) 0.4 10^3/uL (0.5-4.7); ABSOLUTE MONOCYTES # (MANUAL) 0.9 10^3/uL (0.1-1.4); BASOPHILS % (MANUAL) 0 % (0-2); EOSINOPHILS % (MANUAL) 1 % (0-6); LYMPHOCYTES % (MANUAL) 3 % (13-45); MONOCYTES % (MANUAL) 7 % (3-13); SEGMENTED NEUTROPHILS % (MAN) 89 % (42-78); TOTAL CELLS COUNTED 100
[2019-07-26 13:16] LABS: ANISOCYTOSIS 1+; PLATELET CLUMPS PRESENT; PLATELET COMMENT ADEQUATE
[2019-07-26 13:17] LABS: PLATELET COUNT 255 10^3/uL (150-450)
--- NOTE | 2019-07-26 13:35 | ER Document Report ---
ED Respiratory Problem - General Chief Complaint: Breathing Difficulty Stated Complaint: DIFFICULTY BREATHING Time Seen by Provider: 07/26/19 12:18 Primary Care Provider: RADHA BOB FNP [NO LOCAL MD] - Follow up as needed Mode of Arrival: Medic Information source: Patient Notes: HPI: 74-year-old male with past medical history as recorded including pulmonary fibrosis on baseline oxygen at home who presents today stating that he said some increased shortness of breath for around 18 months. It has been slightly worse over the last week. Patient states he is here today because he ran out of his montelukast around a month ago and ran out of his prednisone yesterday. Patient is followed by the pulmonology team at the [place]. Patient denies any runny nose, congestion, sore throat, chest pain, cough above baseline, calf pain or leg swelling. No fevers or vomiting. Patient was supposedly provided steroids by EMS upon arrival. Patient denies any pain or complaints above baseline at this time. ROS: See HPI All other review of systems reviewed and otherwise negative Reviewed vital signs and nursing note as charted by RN. PHYSICAL EXAM: CONSTITUTIONAL: Alert and oriented and responds appropriately to questions. Well-appearing; well-nourished HEAD: Normocephalic; atraumatic EYES: PERRL; Conjunctivae clear, sclerae non-icteric ENT: Normal nose; no rhinorrhea; moist mucous membranes; pharynx without lesions noted NECK: Supple without meningismus; non-tender; no cervical lymphadenopathy, no masses CARD: Regular rate and rhythm; no murmurs; symmetric distal pulses RESP: Normal chest excursion without splinting or tachypnea; breath sounds clear and equal bilaterally; no obvious wheezing, rhonchi, rales appreciated ABD/GI: Normal bowel sounds; non-distended; soft, non-tender; no palpable organomegaly or masses BACK: The back appears normal and is non-tender to palpation EXT: Normal ROM in all joints; non-tender to palpation; no edema SKIN: No acute lesions noted NEURO: CN 2-12 intact; 5/5 bilateral upper and lower extremity strength with sensation intact to light touch PSYCH: The patient's mood and manner are appropriate. Grooming and personal hygiene are appropriate. TRAVEL OUTSIDE OF THE [place] IN LAST 30 DAYS: No - Related Data Allergies/Adverse Reactions: No Known Allergies Allergy (Unverified 03/04/18 08:57) Home Medications: Prednisone - Out of medication. Symbicort. Spiriva. Albuterol inhaler Past Medical History - General Information source: Patient - Social History Smoking Status: Former Smoker Chew tobacco use (# tins/day): No Frequency of alcohol use: None Drug Abuse: None Family History: CAD, DM, Other - MOTHER - HEMORRHAGIC STROKE Patient has suicidal ideation: No Patient has homicidal ideation: No - Past Medical History Cardiac Medical History: Reports: Hx Hypertension Denies: Hx Atrial Fibrillation, Hx Congestive Heart Failure Pulmonary Medical History: Reports: Hx COPD Neurological Medical History: Denies: Hx Migraine Endocrine Medical History: Denies: Hx Diabetes Mellitus Type 1, Hx Diabetes Mellitus Type 2, Hx Hyperthyroidism, Hx Hypothyroidism Renal/ Medical History: Denies: Hx End Stage Renal Disease, Hx Peritoneal Dialysis Malignancy Medical History: Reports Hx Skin Cancer GI Medical History: Denies: Hx Crohn's Disease, Hx Ulcerative Colitis Musculoskeletal Medical History: Denies Hx Fibromyalgia Psychiatric Medical History: Reports: Hx Depression - d/t hospital stays Infectious Medical History: Denies: Hx C-Diff, Hx HIV Past Surgical History: Reports: Other - HERNIA REPAIR - Immunizations Hx Pneumococcal Vaccination: 07/07/17 Physical Exam - Vital signs Vitals: Temp Pulse Resp BP Pulse Ox 98.8 F 98 24 H 113/75 97 07/26/19 12:18 07/26/19 12:18 07/26/19 12:18 07/26/19 12:18 07/26/19 12:18 Course - Re-evaluation Re-evalutation: 07/26/19 13:35 Given the above history and physical, we will obtain an x-ray of the chest, basic labs, EKG, and reassess the patient's lungs. I do believe PE, dissection to be unlikely. I do believe that the patient needs better follow-up as well as a refill of his medications. Patient is already been provided steroids. 07/26/19 13:57 EKG shows a heart of 101, sinus tachycardia, normal axis, no ST elevation or depression. 07/26/19 15:32 Labs as recorded. Patient currently has no abdominal pain. Given the increased shortness of breath with with the patient states that some intermittent lower extremity edema, with an elevated CK-MB and troponin I, with no history of cardiac disease or coronary catheterizations recently, I do believe the patient may be transferred to a location that has this capability. 07/26/19 15:35 I have called and spoken to the cook cashier food prep here. He believes we can keep the patient here given that the patient does not meet any criteria for transfer according to hospital protocol. He would like me to admit the patient to the hospitalist. He would like me to provide Lovenox. - Vital Signs Vital signs: Temp Pulse Resp BP Pulse Ox 98.8 F 98 20 111/84 95 07/26/19 12:18 07/26/19 12:18 07/26/19 14:00 07/26/19 14:00 07/26/19 14:01 - Laboratory Result Diagrams: 07/26/19 11:41 07/26/19 11:41 Laboratory results interpreted by me: 07/26/19 07/26/19 07/26/19 11:41 11:41 11:41 WBC 12.7 H RDW 15.4 H Seg Neuts % (Manual) 89 H Lymphocytes % (Manual) 3 L Abs Neuts (Manual) 11.3 H Abs Lymphs (Manual) 0.4 L Sodium 134.3 L Chloride 96 L Glucose 116 H AST 63 H Creatine Kinase 589 H CK-MB (CK-2) 23.20 H Critical Care Note - Critical Care Note Total time excluding time spent on procedures (mins): 35 Discharge - Discharge Clinical Impression: NSTEMI (non-ST elevated myocardial infarction), SOB (shortness of breath) Condition: Fair Disposition: ADMITTED OBSERVATION Admitting Provider: [facility] (Hospitalist) Unit Admitted: Telemetry Referrals: RADHA BOB FNP [NO LOCAL MD] - Follow up as needed
--- NOTE | 2019-07-26 13:53 | RADIOLOGY REPORT (SQ) ---
EXAM DESCRIPTION: CHEST 2 VIEWS COMPLETED DATE/TIME: 07/26/2019 1:30 pm REASON FOR STUDY: short of breath COMPARISON: Chest x-ray dated 10/22/2018. Chest CT dated 03/22/2018. EXAM PARAMETERS: NUMBER OF VIEWS: two views TECHNIQUE: Digital Frontal and Lateral radiographic views of the chest acquired. RADIATION DOSE: NA LIMITATIONS: none FINDINGS: LUNGS AND PLEURA: Low lung volumes. Elevated right hemidiaphragm. Extensive diffuse inte rstitial prominence. MEDIASTINUM AND HILAR STRUCTURES: No masses or contour abnormalities. HEART AND VASCULAR STRUCTURES: Cardiomegaly. BONES: No acute findings. HARDWARE: None in the chest. OTHER: No other significant finding. IMPRESSION: CHRONIC CHANGES. ELEVATED RIGHT HEMIDIAPHRAGM. EXTENSIVE CHRONIC INTERSTITIAL SCARRING . PROBABLY LITTLE CHANGE FROM PRIOR STUDIES. CANNOT EXCLUDE AN EARLY INFILTRATE. TECHNICAL DOCUMENTATION: JOB ID: [id number] [employer]- All Rights Reserved Reading location - IP/workstation name: [email or web address]
[2019-07-26 15:10] LABS: TROPONIN I 0.157 ng/mL
--- NOTE | 2019-07-26 16:46 | PDOC H&P ---
History of Present Illness Admission Date/PCP: 07/26/19 15:46 [facility] History of Present Illness: ALBA MARCANO is a 74 year old male with a history of pulmonary fibrosis who comes in with a history of worsening dyspnea on exertion. He said he typically cannot walk very far without getting short of breath and taking a long time to recover, but feels like his been getting worse the last couple of days. He is also running out of his prednisone which she said normally helps with his breathing. He is on oxygen chronically. He was not complaining of any chest pain but his CK-MB was elevated and his troponin was elevated. He had a similar presentation back in October but it does not like any kind of cardiac evaluation was done at that time. He does have an impressive smoking history says he does not smoke anymore. The ER called Dr. Milligan who thought the patient should be admitted for further evaluation. Past Medical History Cardiac Medical History: Reports: Hypertension Denies: Atrial Fibrillation, Congestive Heart Failure Pulmonary Medical History: Reports: Chronic Obstructive Pulmonary Disease (COPD) Neurological Medical History: Denies: Migraine Endocrine Medical History: Denies: Diabetes Mellitus Type 1, Diabetes Mellitus Type 2, Hyperthyroidism, Hypothyroidism Renal/ Medical History: Denies: End Stage Renal Disease Malignancy Medical History: Reports: Skin Cancer GI Medical History: Denies: Crohn's Disease, Ulcerative Colitis Musculoskeltal Medical History: Denies: Fibromyalgia Psychiatric Medical History: Reports: Depression - d/t hospital stays Hematology: Denies: Hemophilia, Sickle Cell Disease Infectious Medical History: Denies: Clostridium Difficile, HIV Past Surgical History Past Surgical History: Reports: Other - HERNIA REPAIR Social History Smoking Status: Former Smoker Electronic Cigarette use?: No Frequency of Alcohol Use: None Hx Recreational Drug Use: No Drugs: None Hx Prescription Drug Abuse: No Family History Family History: CAD, DM, Other - MOTHER - HEMORRHAGIC STROKE Parental Family History Reviewed: Yes - CAD, DM Children Family History Reviewed: NA Sibling(s) Family History Reviewed.: NA Medication/Allergy Home Medications: Montelukast Sodium [Singulair 10 mg Tablet] 10 mg PO DAILY 07/26/19 Prednisone [Deltasone 20 mg Tablet] 20 mg PO DAILY 07/26/19 Allergies/Adverse Reactions: No Known Allergies Allergy (Unverified 03/04/18 08:57) Review of Systems All systems: reviewed and no additional remarkable complaints except as stated - All systems were reviewed and were negative except as noted in the HPI Physical Exam Vital Signs: Temp Pulse Resp BP Pulse Ox 98.4 F 98 20 130/77 H 96 07/26/19 15:46 07/26/19 12:18 07/26/19 14:00 07/26/19 15:30 07/26/19 15:29 Intake & Output 07/25/19 07/26/19 07/27/19 06:59 06:59 06:59 Weight 80 kg General appearance: PRESENT: no acute distress, cooperative, disheveled Head exam: PRESENT: atraumatic, normocephalic Eye exam: PRESENT: EOMI, PERRLA. ABSENT: conjunctival injection, nystagmus, scleral icterus Ear exam: PRESENT: normal external ear exam Mouth exam: PRESENT: moist, neck supple Teeth exam: PRESENT: poor dentation Neck exam: PRESENT: full ROM. ABSENT: carotid bruit, JVD, lymphadenopathy, meningismus, tenderness, thyromegaly Respiratory exam: PRESENT: accessory muscle use, rhonchi, symmetrical, other - Increased AP chest diameter. ABSENT: chest wall tenderness, clear to auscultation dmitri, decreased breath sounds, prolonged expiratory phas, tachypnea, unlabored, wheezes Cardiovascular exam: PRESENT: RRR, +S1, +S2 Pulses: PRESENT: normal carotid pulses Vascular exam: PRESENT: normal capillary refill GI/Abdominal exam: PRESENT: normal bowel sounds, soft. ABSENT: distended, guarding, rebound, tenderness Extremities exam: ABSENT: clubbing, pedal edema Musculoskeletal exam: PRESENT: normal inspection. ABSENT: deformity Neurological exam: PRESENT: alert, awake, oriented to person, oriented to place, oriented to time, oriented to situation, CN II-XII grossly intact. ABSENT: motor sensory deficit Psychiatric exam: PRESENT: appropriate affect, normal mood Skin exam: PRESENT: dry, warm Results Laboratory Results: 07/26/19 11:41 07/26/19 11:41 07/26/19 07/26/19 11:41 11:41 WBC 12.7 H RBC 5.37 Hgb 15.7 Hct 47.7 MCV 89 MCH 29.3 MCHC 33.0 RDW 15.4 H Plt Count 255 Seg Neutrophils % Not Reportable Sodium 134.3 L Potassium 4.2 Chloride 96 L Carbon Dioxide 28 Anion Gap 10 BUN 17 Creatinine 0.77 Est GFR ( Amer) > 60 Glucose 116 H Calcium 9.6 Total Bilirubin 0.7 AST 63 H Alkaline Phosphatase 97 Total Protein 8.1 Albumin 4.0 Lipase 85.2 07/26/19 07/26/19 07/26/19 11:41 11:41 11:41 Creatine Kinase 589 H CK-MB (CK-2) 23.20 H Troponin I 0.157 NT-Pro-B Natriuret Pep 210 Impressions: Chest X-Ray 07/26/19 12:23 IMPRESSION: CHRONIC CHANGES. ELEVATED RIGHT HEMIDIAPHRAGM. EXTENSIVE CHRONIC INTERSTITIAL SCARRING. PROBABLY LITTLE CHANGE FROM PRIOR STUDIES. CANNOT EXCLUDE AN EARLY INFILTRATE. Assessment and Plan - Diagnosis (1) NSTEMI (non-ST elevated myocardial infarction) Is this a current diagnosis for this admission?: Yes Plan: Given Lovenox and aspirin. We will trend his CK-MB and troponin. We will keep him on telemetry. ER has already spoken to Dr. Milligan who will see him in consultation. (2) Chronic respiratory failure with hypoxia Is this a current diagnosis for this admission?: Yes Plan: Continue supplemental O2 (3) Pulmonary fibrosis Is this a current diagnosis for this admission?: Yes Plan: We will continue his prednisone - Time Time Spent with patient: 35 or more minutes - Inpatient Certification Based on my medical assessment, after consideration of the patient's comorbidities, presenting symptoms, or acuity I expect that the services needed warrant INPATIENT care.: Yes I certify that my determination is in accordance with my understanding of Medicare's requirements for reasonable and necessary INPATIENT services [42 CFR 412.3e].: Yes Medical Necessity: Significant Comorbidiites Make Outpatient Treatment Too Risky, Need Close Monitoring Due to Risk of Patient Decompensation, Need For Continuous Telemetry Monitoring, Risk of Complication if Not Cared For in Hospital
[2019-07-26] MEDS: ENOXAPARIN SODIUM INJ 80 MG/0.8 ML DISP.SYRIN SUBCUT SCH ×3 (17:00→22:39)
[2019-07-26 18:24] LABS: INTERNATIONAL RATION (INR) 1.05; PROTHROMBIN TIME 13.7 SEC (11.4-15.4)
[2019-07-26 18:25] LABS: PARTIAL THROMBOPLASTIN TIME 29.6 SEC (23.5-35.8)
[2019-07-26 18:49] LABS: CREATINE KINASE MB 18.2 ng/mL (<4.55); TROPONIN I 0.112 ng/mL
[2019-07-26 22:48] LABS: CREATINE KINASE MB 17.3 ng/mL (<4.55); TROPONIN I 0.114 ng/mL
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
--- NOTE | 2019-07-27 02:18 | EKG REPORT ---
SEVERITY:- OTHERWISE NORMAL ECG - SINUS TACHYCARDIA : Confirmed by: Destiney Louie 27-Jul-2019 02:17:04
[2019-07-27 04:19] LABS: HEMOGLOBIN 14.9 g/dL (13.5-17.0); MEAN CORPUSCULAR HEMOGLOBIN 30.2 pg (27.0-33.4); MEAN CORPUSCULAR HGB CONC 33.8 g/dL (32.0-36.0); MEAN CORPUSCULAR VOLUME 89 fl (80-97); PLATELET COUNT 242 10^3/uL (150-450); RED BLOOD COUNT 4.92 10^6/uL (4.35-5.55); RED CELL DISTRIBUTION WIDTH 15.6 % (11.5-14.0)
[2019-07-27 04:48] LABS: CREATINE KINASE MB 15.1 ng/mL (<4.55)
[2019-07-27 05:01] LABS: TROPONIN I 0.131 ng/mL
--- NOTE | 2019-07-27 07:58 | EKG REPORT ---
SEVERITY:- NORMAL ECG - SINUS RHYTHM : Confirmed by: Destiney Louie 27-Jul-2019 07:57:03
[2019-07-27] MEDS ORDERED: INFLUENZA QUAD (6MOS+) 2019-20 VAC 0.5 ML SYR IM ONE (08:00)
[2019-07-27] MEDS: ENOXAPARIN SODIUM INJ 80 MG/0.8 ML DISP.SYRIN SUBCUT SCH ×3 (09:29→22:23)
[2019-07-27] MEDS: MONTELUKAST SODIUM 10 MG TABLET PO SCH (09:43)
[2019-07-27] MEDS: PREDNISONE 20 MG TABLET PO SCH (09:43)
[2019-07-27] MEDS: ASPIRIN 81 MG TABLET, ENT COATED PO SCH (09:43)
[2019-07-27 12:06] LABS: APPEARANCE,URINE CLEAR; BILIRUBIN,URINE NEGATIVE (NEGATIVE); COLOR,URINE YELLOW; GLUCOSE, URINE NEGATIVE (NEGATIVE); KETONES,URINE TRACE mg/dL (NEGATIVE); LEUKOCYTE ESTERASE,URINE NEGATIVE (NEGATIVE); NITRITE,URINE NEGATIVE (NEGATIVE); PROTEIN,URINE 30 mg/dL (NEGATIVE); URINE SPECIFIC GRAVITY 1.027
--- NOTE | 2019-07-27 14:48 | PDOC PROGRESS REPORT ---
Subjective Progress Note for:: 07/27/19 Subjective:: No adverse events overnight. No new complaints. No chest pain. Breathing feels like it is at baseline. He initially did refuse to have his technetium scan and his echocardiogram as recommended by Dr. Milligan, but after some explanation he decided to go ahead and have them done. Reason For Visit: NSTEMI Physical Exam Vital Signs: Temp Pulse Resp BP Pulse Ox 97.3 F 67 19 100/53 L 98 07/27/19 08:02 07/27/19 08:02 07/27/19 08:02 07/27/19 08:02 07/27/19 08:02 Intake & Output 07/26/19 07/27/19 07/28/19 06:59 06:59 06:59 Intake Total 500 118 Output Total 250 Balance 500 -132 Weight 64.6 kg General appearance: PRESENT: no acute distress, cooperative, disheveled Respiratory exam: PRESENT: accessory muscle use, rhonchi, symmetrical, other - Increased AP chest diameter. ABSENT: chest wall tenderness, clear to auscultation dmitri, decreased breath sounds, prolonged expiratory phas, tachypnea, unlabored, wheezes Cardiovascular exam: PRESENT: RRR, +S1, +S2 Pulses: PRESENT: normal carotid pulses Vascular exam: PRESENT: normal capillary refill GI/Abdominal exam: PRESENT: normal bowel sounds, soft. ABSENT: distended, guarding, rebound, tenderness Extremities exam: ABSENT: clubbing, pedal edema Musculoskeletal exam: PRESENT: normal inspection. ABSENT: deformity Neurological exam: PRESENT: alert, awake, oriented to person, oriented to place, oriented to time, oriented to situation Psychiatric exam: PRESENT: appropriate affect, normal mood Skin exam: PRESENT: dry, warm Results Laboratory Results: 07/27/19 03:58 07/26/19 11:41 07/27/19 07/27/19 03:58 10:00 WBC 10.0 RBC 4.92 Hgb 14.9 Hct 44.0 MCV 89 MCH 30.2 MCHC 33.8 RDW 15.6 H Plt Count 242 Urine Color YELLOW Urine Appearance CLEAR Urine pH 6.0 Ur Specific [place] 1.027 Urine Protein 30 H Urine Glucose (UA) NEGATIVE Urine Ketones TRACE H Urine Blood NEGATIVE Urine Nitrite NEGATIVE Ur Leukocyte Esterase NEGATIVE Urine WBC (Auto) 1 Urine RBC (Auto) 2 07/26/19 07/26/19 07/26/19 11:41 11:41 11:41 Creatine Kinase 589 H CK-MB (CK-2) 23.20 H Troponin I 0.157 NT-Pro-B Natriuret Pep 210 07/26/19 07/26/19 07/27/19 17:45 21:55 03:58 Creatine Kinase CK-MB (CK-2) 18.20 H 17.30 H 15.10 H Troponin I 0.112 0.114 0.131 NT-Pro-B Natriuret Pep Impressions: Chest X-Ray 07/26/19 12:23 IMPRESSION: CHRONIC CHANGES. ELEVATED RIGHT HEMIDIAPHRAGM. EXTENSIVE CHRONIC INTERSTITIAL SCARRING. PROBABLY LITTLE CHANGE FROM PRIOR STUDIES. CANNOT EXCLUDE AN EARLY INFILTRATE. Assessment and Plan - Diagnosis (1) NSTEMI (non-ST elevated myocardial infarction) Is this a current diagnosis for this admission?: Yes Plan: We have had him on Lovenox. Troponins have trended down. More likely this is a type II MA due to supply and demand mismatch as a result of his pulmonary fibrosis and chronic hypoxemia. He is going to have an echocardiogram and a technetium scan to evaluate for MA. If these are unremarkable, he can possibly be discharged home. (2) Chronic respiratory failure with hypoxia Is this a current diagnosis for this admission?: Yes Plan: Continue supplemental O2 (3) Pulmonary fibrosis Is this a current diagnosis for this admission?: Yes Plan: We will continue his prednisone - Time Time Spent with patient: 15-24 minutes
--- NOTE | 2019-07-27 16:47 | XCELERA REPORT ---
[address] [address] Transthoracic Echocardiogram Report Name: ALBA MARCANO Age: 74 yrs Gender: Male : 1945 Patient Status: Inpatient Patient Location: [address] [place], [place] [address] Study Date: 07/27/2019 10:16 AM Height: 68 in Weight: 142 lb BSA: 1.8 m2 Procedure: A two-dimensional transthoracic echocardiogram with color flow and Doppler was performed. The study was technically limited with all images being suboptimal in quality. Reason For Study: Elevated troponin / pulmonary hypertension History: Elevated troponin / pulmonary hypertension. Ordering Physician: KIERRA MOODY Performed By: Martha Velez Interpretation Summary The left ventricle is normal in size. There is normal left ventricular wall thickness. LV EF is > THAN 60% Left ventricular systolic function is normal. Doppler measurements suggest impaired left ventricular relaxation, which is associated with grade I/IV or mild diastolic dysfunction The right atrium is normal. The left atrial size is normal. Cannot assess ASD ,VSD,or PFO. There is no evidence of mitral valve prolapse. There is no vegetation seen on the mitral valve. There is no mitral valve stenosis. There is a trace amount of mitral regurgitation There is no aortic valvular vegetation. There is no aortic valve stenosis No aortic regurgitation is present. There is no tricuspid stenosis. There is a trace amount of tricuspid regurgitation Tricuspid regurgitation jet envelope not well defined to measure RV systolic pressure accurately. There is no pulmonic valvular stenosis. There is no pulmonic valvular regurgitation. The aortic root is mildly dilated The inferior vena cava was not well visualized There is no pericardial effusion. MMode/2D Measurements & Calculations RVDd: 2.7 cm LVIDd: 4.6 cm FS: 35.0 % Ao root diam: 3.9 cm IVSd: 1.1 cm LVIDs: 3.0 cm EDV(Teich): 99.7 ml Ao root area: 11.7 cm2 LVPWd: 1.1 cm ESV(Teich): 35.6 ml LA dimension: 3.7 cm EF(Teich): 64.3 % Doppler Measurements & Calculations MV E max lilli: MV P1/2t max lilli: Ao V2 max: LV V1 max P.2 cm/sec 59.7 cm/sec 95.0 cm/sec 2.1 mmHg MV A max lilli: MV P1/2t: 90.8 msec Ao max PG: LV V1 max: 74.5 cm/sec MVA(P1/2t): 2.4 cm2 3.6 mmHg 73.1 cm/sec MV E/A: 0.79 MV dec slope: 192.8 cm/sec2 MV dec time: 0.31 sec PA V2 max: MV P1/2t-pr_phl: 51.8 cm/sec 90.8 msec PA max P.1 mmHg Left Ventricle The left ventricle is normal in size. There is normal left ventricular wall thickness. LV EF is > THAN 60%. Left ventricular systolic function is normal. Doppler measurements suggest impaired left ventricular relaxation, which is associated with grade I/IV or mild diastolic dysfunction. Right Ventricle The right ventricle is not well visualized secondary to technical limitations. Atria The right atrium is normal. The left atrial size is normal. Cannot assess ASD ,VSD,or PFO. Mitral Valve There is no evidence of mitral valve prolapse. There is no vegetation seen on the mitral valve. There is no mitral valve stenosis. There is a trace amount of mitral regurgitation. Aortic Valve There is no aortic valvular vegetation. There is no aortic valve stenosis. No aortic regurgitation is present. Tricuspid Valve There is no tricuspid stenosis. There is a trace amount of tricuspid regurgitation. Tricuspid regurgitation jet envelope not well defined to measure RV systolic pressure accurately. Pulmonic Valve There is no pulmonic valvular stenosis. There is no pulmonic valvular regurgitation. Great Vessels The aortic root is mildly dilated. The inferior vena cava was not well visualized. Effusions There is no pericardial effusion. : KIERRA MOODY Lakshmi
--- NOTE | 2019-07-28 09:26 | EKG REPORT ---
SEVERITY:- ABNORMAL ECG - SINUS RHYTHM NONSPECIFIC INTRAVENTRICULAR CONDUCTION DELAY : Confirmed by: Kierra Milligan MD 28-Jul-2019 09:26:20
[2019-07-28] MEDS: ENOXAPARIN SODIUM INJ 80 MG/0.8 ML DISP.SYRIN SUBCUT SCH ×2 (10:09→21:27)
[2019-07-28] MEDS: PREDNISONE 20 MG TABLET PO SCH (10:09)
[2019-07-28] MEDS: MONTELUKAST SODIUM 10 MG TABLET PO SCH (10:09)
[2019-07-28] MEDS: ASPIRIN 81 MG TABLET, ENT COATED PO SCH (10:09)
--- NOTE | 2019-07-28 15:46 | PDOC PROGRESS REPORT ---
Subjective Progress Note for:: 07/28/19 Subjective:: No adverse events overnight. Today he said he is worried about being able to go home because he cannot walk more than about 20 feet without getting extremely short of breath. He says that is why he is been missing his doctor's appointments because he physically cannot make it out to get into somebody's car to go to a doctor's visit. Reason For Visit: NSTEMI Physical Exam Vital Signs: Temp Pulse Resp BP Pulse Ox 97.6 F 72 18 110/64 99 07/28/19 12:20 07/28/19 12:20 07/28/19 12:20 07/28/19 12:20 07/28/19 12:20 Intake & Output 07/27/19 07/28/19 07/29/19 06:59 06:59 06:59 Intake Total 500 358 Output Total 350 Balance 500 8 Weight 64.6 kg 66.7 kg General appearance: PRESENT: no acute distress, cooperative, disheveled Respiratory exam: PRESENT: accessory muscle use, rhonchi, symmetrical, other - Increased AP chest diameter. ABSENT: chest wall tenderness, clear to ausc ultation dmitri, decreased breath sounds, prolonged expiratory phas, tachypnea, unlabored, wheezes Cardiovascular exam: PRESENT: RRR, +S1, +S2 Pulses: PRESENT: normal carotid pulses Vascular exam: PRESENT: normal capillary refill GI/Abdominal exam: PRESENT: normal bowel sounds, soft. ABSENT: distended, guarding, rebound, tenderness Extremities exam: ABSENT: clubbing, pedal edema Musculoskeletal exam: PRESENT: normal inspection. ABSENT: deformity Neurological exam: PRESENT: alert, awake, oriented to person, oriented to place, oriented to time, oriented to situation Psychiatric exam: PRESENT: appropriate affect, normal mood Skin exam: PRESENT: dry, warm Results Laboratory Results: 07/27/19 03:58 07/26/19 11:41 07/26/19 07/26/19 07/26/19 11:41 11:41 11:41 Creatine Kinase 589 H CK-MB (CK-2) 23.20 H Troponin I 0.157 NT-Pro-B Natriuret Pep 210 07/26/19 07/26/19 07/27/19 17:45 21:55 03:58 Creatine Kinase CK-MB (CK-2) 18.20 H 17.30 H 15.10 H Troponin I 0.112 0.114 0.131 NT-Pro-B Natriuret Pep Impressions: Chest X-Ray 07/26/19 12:23 IMPRESSION: CHRONIC CHANGES. ELEVATED RIGHT HEMIDIAPHRAGM. EXTENSIVE CHRONIC INTERSTITIAL SCARRING. PROBABLY LITTLE CHANGE FROM PRIOR STUDIES. CANNOT EXCLUDE AN EARLY INFILTRATE. Assessment and Plan - Diagnosis (1) NSTEMI (non-ST elevated myocardial infarction) Is this a current diagnosis for this admission?: Yes Plan: Echocardiogram was unremarkable. Troponins and CK-MB have been trending down. Most likely type II IA from demand mismatch. Will discontinue Lovenox. (2) Chronic respiratory failure with hypoxia Is this a current diagnosis for this admission?: Yes Plan: Continue supplemental O2 (3) Pulmonary fibrosis Is this a current diagnosis for this admission?: Yes Plan: This seems to be the primary issue. We got him on prednisone because he says it makes him feel better even though pulmonary fibrosis steroids tend not to help very much. We will have case management and social work come to see him because he may need placement and of [place] assisted living. - Time Time Spent with patient: 15-24 minutes
--- NOTE | 2019-07-28 21:52 | Progress Note ---
Provider Note Provider Note: CARDIOLOGY PROGRESS NOTE by Dr. Kierra Milligan on 07/28/2019. SUBJECTIVE: The patient states his shortness of breath is not improved in fact is worse. He does have orthopnea but no PND. There is cough which is nonproductive of any sputum. There is no wheezing. There is no chest pain or discomfort. He states even moving in bed causes him to become short of breath. He denies any chest pain or discomfort. His troponin I is still holding below and slightly above the cutoff point for non-ST elevation [place]. The patient had a technetium pyrophosphate infarct I would scan, the results are awaited. On examination the patient appears to be chronically ill. There is a frail build. Selected Entries 07/28/19 07:55 Temperature 97.3 F Temperature Oral Source Pulse Rate 69 Respiratory 20 Rate Blood Pressure 109/66 Blood Pressure 80 Mean BP Location Right Arm BP Position Supine O2 Sat by Pulse 97 Oximetry Oxygen Flow 3.00 Rate Oxygen Delivery Nasal Cannula Method HEAD: Head is atraumatic and normocephalic. EYES: Pupils are equal round regular reactive to light accommodation. Extraocular movements are normal, there is no conjunctival pallor, and no scleral icterus. EARS: Tympanic membranes are intact external auditory canals are clear. NOSE: There is no inflammation of the nasal mucous membrane there is no deviated nasal septum. MOUTH: Mucous membranes of mouth and tongue are moist, there is no ulcers in the mouth or tongue, and no bleeding from the gums. THROAT: There is no redness of the oropharynx, no exudate seen. SKIN: There is no petechia or ecchymosis. There is no rashes or lesions. NECK: Supple. There is no JVD. Carotids are equal there is no bruit. There is no lymphadenopathy. There is no goiter. Trachea central LUNGS: There is diminished air entry and prolonged expiration. Clear to auscultation bilaterally, no wheezes, or rhonchi. On percussion there is hyperresonance although there is no chest wall tenderness HEART: S1 and S2 are heard. S1 is of normal intensity, there is no S3 or S4 gallops. There is a systolic murmur the left sternal border and the apex. There is no rub. ABDOMEN: Normoactive bowel sounds, soft, nontender, no masses, no rebound, no guarding. There is no hepatosplenomegaly. EXTREMITIES: Femorals are slightly diminished. There is no femoral bruits. Leg pulses are diminished. There is no pedal edema. There is no DVT or cellulitis. There is no cyanosis or clubbing. There is no calf tenderness. NEUROLOGICAL the patient is awake alert oriented 3 with no focal deficits. PSYCHIATRIC: The patient judgment and insight are intact his affect is normal. Chest X-Ray 07/26/19 12:23 IMPRESSION: CHRONIC CHANGES. ELEVATED RIGHT HEMIDIAPHRAGM. EXTENSIVE CHRONIC INTERSTITIAL SCARRING. PROBABLY LITTLE CHANGE FROM PRIOR STUDIES. CANNOT EXCLUDE AN EARLY INFILTRATE. IMPRESSION/RECOMMENDATION: 1. Elevated CPK CPK-MB and troponin I. Patient has no chest pains and there are no acute EKG changes. Most likely this is type II myocardial infarction secondary to supply demand mismatch. We will recheck the patient's EKG serially and also will get serial cardiac biomarkers. We will also get a technetium pyrophosphate [infarct avid scan] to see if indeed there is been myocardial injury. Note with the lack of symptoms of chest pain, and the patient's advanced restriction for fibrosis which makes him an noncandidate for coronary artery bypass graft surgery, unless the patient has intractable anginal symptoms would not recommend cardiac catheterization at present. Would also recommend getting up pulmonary CT angiogram to make sure that the patient does not have pulmonary embolism. This is less likely since with the patient's already severely compromised lung pathology a insult added to it in the form of pul monary embolism the patient would not be as stable as he is at present. We will leave this to the attending physician. Will check an echocardiogram tomorrow for wall motion of normality and possible pulmonary hypertension. 2. Possible pneumonia/infiltrate: Recommend IV antibiotics. 3. Interstitial fibrosis: Continue oxygen and intensify steroid treatment. Patient continues to have significant shortness of breath. Would recommend pulmonary consult. Patient sees Dr. Haque as an outpatient. 4. COPD: End-stage: Continue oxygen and intensify anti-COPD treatment. 5. Hypertension: Possibly steroid-induced and at present seems to be controlled with diet alone. MEDICATIONS reviewed. Management plan discussed with the attending physician on the case medical decision making is of moderate complexity. 40 minutes spent on this patient more than 50% of time spent in direct patient care.
[2019-07-29 06:53] LABS: HEMATOCRIT 44.3 % (37.9-51.0); HEMOGLOBIN 14.8 g/dL (13.5-17.0); MEAN CORPUSCULAR HGB CONC 33.5 g/dL (32.0-36.0); MEAN CORPUSCULAR VOLUME 90 fl (80-97); PLATELET COUNT 227 10^3/uL (150-450); RED BLOOD COUNT 4.95 10^6/uL (4.35-5.55); RED CELL DISTRIBUTION WIDTH 15.8 % (11.5-14.0); WHITE BLOOD COUNT 9.4 10^3/uL (4.0-10.5)
--- NOTE | 2019-07-29 09:26 | RADIOLOGY REPORT (SQ) ---
EXAM DESCRIPTION: NM MYOCARDIAL INFARCT AVID COMPLETED DATE/TIME: 07/28/2019 3:25 pm REASON FOR STUDY: Elevated Troponin.Radiology to read COMPARISON: None. RADIONUCLIDE AND DOSE: 21.7 mCi Tc 99 m labeled PYP ADDITIONAL DRUGS AND DOSES: None. TECHNIQUE: Radionuclide was injected intravenously. 8 static images acquired between 1 and 2 hours following injection. LIMITATIONS: None. FINDINGS: There is cardiac activity equal to rib activity. This is consistent with grade 2 uptake. IMPRESSION: Grade 2 myocardial uptake. This is suggestive of myocardial infarction. TECHNICAL DOCUMENTATION: JOB ID: [id number]- All Rights Reserved Reading location - IP/workstation name: [email or web address]
--- NOTE | 2019-07-29 09:59 | EKG REPORT ---
SEVERITY:- NORMAL ECG - SINUS RHYTHM : Confirmed by: Kierra Milligan MD 29-Jul-2019 09:58:15
[2019-07-29] MEDS: ENOXAPARIN SODIUM INJ 80 MG/0.8 ML DISP.SYRIN SUBCUT SCH ×2 (10:18→22:52)
[2019-07-29] MEDS: ASPIRIN 81 MG TABLET, ENT COATED PO SCH (10:18)
[2019-07-29] MEDS: MONTELUKAST SODIUM 10 MG TABLET PO SCH (10:19)
[2019-07-29] MEDS: PREDNISONE 20 MG TABLET PO SCH (10:19)
--- NOTE | 2019-07-29 17:04 | PDOC PROGRESS REPORT ---
Subjective Progress Note for:: 07/29/19 Subjective:: No adverse events overnight. No new complaints. Vital signs been stable. Breathing is at baseline. He again expresses his concern about going home because of his breathing and lack of exercise tolerance. Reason For Visit: NSTEMI Physical Exam Vital Signs: Temp Pulse Resp BP Pulse Ox 97.7 F 102 H 16 90/59 L 95 07/29/19 16:00 07/29/19 16:00 07/29/19 16:00 07/29/19 16:00 07/29/19 16:00 Intake & Output 07/28/19 07/29/19 07/30/19 06:59 06:59 06:59 Intake Total 358 1664 460 Output Total 350 400 2 Balance 8 1264 458 Weight 66.7 kg 66.6 kg General appearance: PRESENT: no acute distress, cooperative, disheveled Respiratory exam: PRESENT: accessory muscle use, rhonchi, symmetrical, other - Increased AP chest diameter. ABSENT: chest wall tenderness, clear to auscultation dmitri, decreased breath sounds, prolonged expiratory phas, tachypnea, unlabored, wheezes Cardiovascular exam: PRESENT: RRR, +S1, +S2 Pulses: PRESENT: normal carotid pulses Vascular exam: PRESENT: normal capillary refill GI/Abdominal exam: PRESENT: normal bowel sounds, soft. ABSENT: distended, guarding, rebound, tenderness Extremities exam: ABSENT: clubbing, pedal edema Musculoskeletal exam: PRESENT: normal inspection. ABSENT: deformity Neurological exam: PRESENT: alert, awake, oriented to person, oriented to place, oriented to time, oriented to situation Psychiatric exam: PRESENT: appropriate affect, normal mood Skin exam: PRESENT: dry, warm Results Laboratory Results: 07/29/19 06:18 07/26/19 11:41 07/29/19 06:18 WBC 9.4 RBC 4.95 Hgb 14.8 Hct 44.3 MCV 90 MCH 30.0 MCHC 33.5 RDW 15.8 H Plt Count 227 07/26/19 07/26/19 07/26/19 11:41 11:41 11:41 Creatine Kinase 589 H CK-MB (CK-2) 23.20 H Troponin I 0.157 NT-Pro-B Natriuret Pep 210 07/26/19 07/26/19 07/27/19 17:45 21:55 03:58 Creatine Kinase CK-MB (CK-2) 18.20 H 17.30 H 15.10 H Troponin I 0.112 0.114 0.131 NT-Pro-B Natriuret Pep Impressions: Chest X-Ray 07/26/19 12:23 IMPRESSION: CHRONIC CHANGES. ELEVATED RIGHT HEMIDIAPHRAGM. EXTENSIVE CHRONIC INTERSTITIAL SCARRING. PROBABLY LITTLE CHANGE FROM PRIOR STUDIES. CANNOT EXCLUDE AN EARLY INFILTRATE. Cardiac Imaging Nuclear Medicine 07/28/19 12:00 IMPRESSION: Grade 2 myocardial uptake. This is suggestive of myocardial infarction. Assessment and Plan - Diagnosis (1) NSTEMI (non-ST elevated myocardial infarction) Is this a current diagnosis for this admission?: Yes Plan: He is not having any chest pain and his enzymes trended down. However, his technetium scan read is positive. We will discuss the results with Dr. Milligan. (2) Chronic respiratory failure with hypoxia Is this a current diagnosis for this admission?: Yes Plan: Continue supplemental O2 (3) Pulmonary fibrosis Is this a current diagnosis for this admission?: Yes Plan: This seems to be the primary issue. We got him on prednisone because he says it makes him feel better even though pulmonary fibrosis steroids tend not to help very much. We will have case management and social work come to see him because he may need placement and of [facility]. - Time Time Spent with patient: 15-24 minutes
[2019-07-29 17:24] LABS: APPEARANCE,URINE CLEAR; BILIRUBIN,URINE NEGATIVE (NEGATIVE); COLOR,URINE YELLOW; GLUCOSE, URINE NEGATIVE (NEGATIVE); KETONES,URINE NEGATIVE (NEGATIVE); LEUKOCYTE ESTERASE,URINE NEGATIVE (NEGATIVE); NITRITE,URINE NEGATIVE (NEGATIVE); PROTEIN,URINE NEGATIVE (NEGATIVE)
[2019-07-29] MEDS: RANOLAZINE 500 MG TAB.SR.12H PO SCH (22:52)
[2019-07-30] MEDS: ENOXAPARIN SODIUM INJ 80 MG/0.8 ML DISP.SYRIN SUBCUT SCH (10:01)
[2019-07-30] MEDS: MONTELUKAST SODIUM 10 MG TABLET PO SCH (10:01)
[2019-07-30] MEDS: ASPIRIN 81 MG TABLET, ENT COATED PO SCH (10:01)
[2019-07-30] MEDS: PREDNISONE 20 MG TABLET PO SCH (10:01)
[2019-07-30] MEDS: RANOLAZINE 500 MG TAB.SR.12H PO SCH ×2 (10:02→22:16)
--- NOTE | 2019-07-30 16:22 | PDOC PROGRESS REPORT ---
Subjective Progress Note for:: 07/30/19 Subjective:: No adverse events overnight. No new complaints. Vital signs been stable. Breathing is at baseline. No chest pain. Reason For Visit: NSTEMI Physical Exam Vital Signs: Temp Pulse Resp BP Pulse Ox 97.7 F 92 16 109/66 97 07/30/19 11:02 07/30/19 11:02 07/30/19 11:02 07/30/19 11:02 07/30/19 14:30 Intake & Output 07/29/19 07/30/19 07/31/19 06:59 06:59 06:59 Intake Total 1664 1202 240 Output Total 400 1477 100 Balance 1264 -275 140 Weight 66.6 kg 65 kg General appearance: PRESENT: no acute distress, cooperative, disheveled Respiratory exam: PRESENT: accessory muscle use, rhonchi, symmetrical, other - Increased AP chest diameter. ABSENT: chest wall tenderness, clear to auscul tation dmitri, decreased breath sounds, prolonged expiratory phas, tachypnea, unlabored, wheezes Cardiovascular exam: PRESENT: RRR, +S1, +S2 Pulses: PRESENT: normal carotid pulses Vascular exam: PRESENT: normal capillary refill GI/Abdominal exam: PRESENT: normal bowel sounds, soft. ABSENT: distended, guarding, rebound, tenderness Extremities exam: ABSENT: clubbing, pedal edema Musculoskeletal exam: PRESENT: normal inspection. ABSENT: deformity Neurological exam: PRESENT: alert, awake, oriented to person, oriented to place, oriented to time, oriented to situation Psychiatric exam: PRESENT: appropriate affect, normal mood Skin exam: PRESENT: dry, warm Results Laboratory Results: 07/29/19 06:18 07/26/19 11:41 07/29/19 16:32 Urine Color YELLOW Urine Appearance CLEAR Urine pH 7.0 Ur Specific [place] 1.010 Urine Protein NEGATIVE Urine Glucose (UA) NEGATIVE Urine Ketones NEGATIVE Urine Blood NEGATIVE Urine Nitrite NEGATIVE Ur Leukocyte Esterase NEGATIVE Urine WBC (Auto) 0 Urine RBC (Auto) 0 07/26/19 07/26/19 07/26/19 11:41 11:41 11:41 Creatine Kinase 589 H CK-MB (CK-2) 23.20 H Troponin I 0.157 NT-Pro-B Natriuret Pep 210 07/26/19 07/26/19 07/27/19 17:45 21:55 03:58 Creatine Kinase CK-MB (CK-2) 18.20 H 17.30 H 15.10 H Troponin I 0.112 0.114 0.131 NT-Pro-B Natriuret Pep Impressions: Chest X-Ray 07/26/19 12:23 IMPRESSION: CHRONIC CHANGES. ELEVATED RIGHT HEMIDIAPHRAGM. EXTENSIVE CHRONIC INTERSTITIAL SCARRING. PROBABLY LITTLE CHANGE FROM PRIOR STUDIES. CANNOT EXCL UDE AN EARLY INFILTRATE. Cardiac Imaging Nuclear Medicine 07/28/19 12:00 IMPRESSION: Grade 2 myocardial uptake. This is suggestive of myocardial infarction. Assessment and Plan - Diagnosis (1) NSTEMI (non-ST elevated myocardial infarction) Is this a current diagnosis for this admission?: Yes Plan: Technetium scan was interpreted by radiology to be positive for an PA, but Dr. Milligan read it and said he did not think it was one there. Lovenox has been discontinued. (2) Chronic respiratory failure with hypoxia Is this a current diagnosis for this admission?: Yes Plan: Continue supplemental O2 (3) Pulmonary fibrosis Is this a current diagnosis for this admission?: Yes Plan: This seems to be the primary issue. We got him on prednisone because he says it makes him feel better even though pulmonary fibrosis steroids tend not to help very much. We will have case management and social work come to see him because he may need placement and of [place] assisted living. Physical therapy evaluation has been ordered. - Time Time Spent with patient: 15-24 minutes
--- NOTE | 2019-07-30 23:40 | Progress Note ---
Provider Note Provider Note: CARDIOLOGY PROGRESS NOTE Dr. Kierra Milligan on 07/30/2019. SUBJECTIVE the patient denies any chest pain or discomfort. There is no PND orthopnea. He shortness of breath is back to baseline but still states that he is very short of breath with the even movements inside on the bed. There is no arrhythmia seen on monitor. The patient tolerated Ranexa. PHYSICAL EXAMINATION: The patient appears to be chronically ill, is a frail build. Selected Entries 07/30/19 07/30/19 07:19 11:02 Temperature 97.7 F Temperature Oral Source Pulse Rate 82 Respiratory 20 Rate Blood Pressure 105/68 Blood Pressure 80 Mean BP Location Right Arm BP Position Supine O2 Sat by Pulse 95 Oximetry Oxygen Flow 3.00 Rate Oxygen Delivery Nasal Cannula Method HEAD: Head is atraumatic and normocephalic. EYES: Pupils are equal round regular reactive to light accommodation. Extraocular movements are normal, there is no conjunctival pallor, and no scleral icterus. EARS: Tympanic membranes are intact external auditory canals are clear. NOSE: There is no infl ammation of the nasal mucous membrane there is no deviated nasal septum. MOUTH: Mucous membranes of mouth and tongue are moist, there is no ulcers in the mouth or tongue, and no bleeding from the gums. THROAT: There is no redness of the oropharynx, no exudate seen. SKIN: There is no petechia or ecchymosis. There is no rashes or lesions.NECK: Supple. There is no JVD. Carotids are equal there i s no bruit. There is no lymphadenopathy. There is no goiter. Trachea central LUNGS: There is diminished air entry and prolonged expiration. Clear to auscultation bilaterally, no wheezes, or rhonchi, except for dry respiratory rales bilaterally.. On percussion there is hyperresonance although there is no chest wall tenderness HEART: S1 and S2 are heard. S1 is of normal intensity, there is no S3 or S4 gallops. There is a systolic murmur the left sternal border and the apex. There is no rub. ABDOMEN: Normoactive bowel sounds, soft, nontender, no masses, no rebound, no guarding. There is no hepatosplenomegaly. EXTREMITIES: Femorals are slightly diminished. There is no femoral bruits. Leg pulses are diminished. There is no pedal edema. There is no DVT or cellulitis. There is no cyanosis or clubbing. There is no calf tenderness. NEUROLOGICAL the patient is awake alert oriented 3 with no focal deficits. PSYCHIATRIC: The patient judgment and insight are intact his affect is normal. Chest X-Ray 07/26/19 12:23 IMPRESSION: CHRONIC CHANGES. ELEVATED RIGHT HEMIDIAPHRAGM. EXTENSIVE CHRONIC INTERSTITIAL SCARRING. PROBABLY LITTLE CHANGE FROM PRIOR STUDIES. CANNOT EXCLUDE AN EARLY INFILTRATE. Cardiac Imaging Nuclear Medicine 07/28/19 12:00 IMPRESSION: Grade 2 myocardial uptake. This is suggestive of myocardial infarction. IMPRESSION/RECOMMENDATION: 1. NSTEMI: Elevated CPK CPK-MB and troponin I. The patient's technetium pyrophosphate scan was positive for myocardial infarction. Hence this is an non-ST elevation [place]. Note with the lack of symptoms of chest pain, and the patient's advanced restriction for fibrosis which makes him an noncandidate for coronary artery bypass graft surgery, unless the patient has intractable anginal symptoms would not recommend cardiac catheterization at present. Would also recommend getting up pulmonary CT angiogram to make sure that the patient does not have pulmonary embolism. This is less likely since with the patient's already severely compromised lung pathology a insult added to it in the form of pulmonary embolism the patient would tolerate and the results will be catastrophic. Hence pulmonary embolism is highly unlikely. The patient is a full dose of Lovenox. We will stop the patient's Lovenox and converted to DVT prophylaxis dosing in view of the patient's severe COPD cannot use beta- blockers. And hence we will start the patient on Ranexa which the patient did tolerate well. Continue aspirin. The a.m. 2. Possible pneumonia/infiltrate: Recommend IV antibiotics. 3. Interstitial fibrosis: Continue oxygen and intensify steroid treatment. Patient continues to have significant shortness of breath. Would recommend pu lmonary consult. Patient sees Dr. Haque as an outpatient. 4. COPD: End-stage: Continue oxygen and intensify anti-COPD treatment. 5. Hypertension: Possibly steroid-induced and at present seems to be controlled with diet alone. MEDICATIONS reviewed. Management plan discussed with the attending physician on the case medical decision making is of moderate complexity. 40 minutes spent on this patient more than 50% of time spent in direct patient care.
[2019-07-31 04:50] LABS: HEMATOCRIT 44.6 % (37.9-51.0); MEAN CORPUSCULAR HEMOGLOBIN 30.1 pg (27.0-33.4); MEAN CORPUSCULAR HGB CONC 33.5 g/dL (32.0-36.0); MEAN CORPUSCULAR VOLUME 90 fl (80-97); PLATELET COUNT 192 10^3/uL (150-450); RED BLOOD COUNT 4.97 10^6/uL (4.35-5.55); RED CELL DISTRIBUTION WIDTH 15.7 % (11.5-14.0); WHITE BLOOD COUNT 8.7 10^3/uL (4.0-10.5)
[2019-07-31] MEDS: PREDNISONE 20 MG TABLET PO SCH (09:44)
[2019-07-31] MEDS: MONTELUKAST SODIUM 10 MG TABLET PO SCH (09:44)
[2019-07-31] MEDS: ASPIRIN 81 MG TABLET, ENT COATED PO SCH (09:44)
[2019-07-31] MEDS: RANOLAZINE 500 MG TAB.SR.12H PO SCH ×2 (09:45→21:23)
--- NOTE | 2019-07-31 14:59 | PDOC PROGRESS REPORT ---
Subjective Progress Note for:: 07/31/19 Subjective:: No adverse events overnight. No new complaints. Vital signs been stable. Breathing is at baseline. No chest pain. Reason For Visit: NSTEMI Physical Exam Vital Signs: Temp Pulse Resp BP Pulse Ox 97.7 F 89 20 100/69 98 07/31/19 12:32 07/31/19 12:32 07/31/19 12:32 07/31/19 12:32 07/31/19 12:32 Intake & Output 07/30/19 07/31/19 08/01/19 06:59 06:59 06:59 Intake Total 1202 1260 Output Total 1477 100 Balance -275 1160 Weight 65 kg 64.6 kg General appearance: PRESENT: no acute distress, cooperative, disheveled Respiratory exam: PRESENT: accessory muscle use, rhonchi, symmetrical, other - Increased AP chest diameter. ABSENT: chest wall tenderness, clear to auscultation dmitri, decreased breath sounds, prolonged expiratory phas, tachypnea, unlabored, wheezes Cardiovascular exam: PRESENT: RRR, +S1, +S2 Pulses: PRESENT: normal carotid pulses Vascular exam: PRESENT: normal capillary refill GI/Abdominal exam: PRESENT: normal bowel sounds, soft. ABSENT: distended, guarding, rebound, tenderness Extremities exam: ABSENT: clubbing, pedal edema Musculoskeletal exam: PRESENT: normal inspection. ABSENT: deformity Neurological exam: PRESENT: alert, awake, oriented to person, oriented to place, oriented to time, oriented to situation Psychiatric exam: PRESENT: appropriate affect, normal mood Skin exam: PRESENT: dry, warm Results Laboratory Results: 07/31/19 03:36 07/26/19 11:41 07/31/19 03:36 WBC 8.7 RBC 4.97 Hgb 15.0 Hct 44.6 MCV 90 MCH 30.1 MCHC 33.5 RDW 15.7 H Plt Count 192 07/26/19 07/26/19 07/26/19 11:41 11:41 11:41 Creatine Kinase 589 H CK-MB (CK-2) 23.20 H Troponin I 0.157 NT-Pro-B Natriuret Pep 210 07/26/19 07/26/19 07/27/19 17:45 21:55 03:58 Creatine Kinase CK-MB (CK-2) 18.20 H 17.30 H 15.10 H Troponin I 0.112 0.114 0.131 NT-Pro-B Natriuret Pep Impressions: Chest X-Ray 07/26/19 12:23 IMPRESSION: CHRONIC CHANGES. ELEVATED RIGHT HEMIDIAPHRAGM. EXTENSIVE CHRONIC INTERSTITIAL SCARRING. PROBABLY LITTLE CHANGE FROM PRIOR STUDIES. CANNOT EXCL UDE AN EARLY INFILTRATE. Cardiac Imaging Nuclear Medicine 07/28/19 12:00 IMPRESSION: Grade 2 myocardial uptake. This is suggestive of myocardial infarction. Assessment and Plan - Diagnosis (1) NSTEMI (non-ST elevated myocardial infarction) Is this a current diagnosis for this admission?: Yes Plan: He is on aspirin and statin. His Lovenox been discontinued. The technetium scan showed that he did have an infarct but it was felt that further evaluation this patient would not be useful unless he begins to display symptoms, and he is never really complained of any chest pain. Says his breathing has been progressively getting worse but did not acutely get worse at any point. (2) Chronic respiratory failure with hypoxia Is this a current diagnosis for this admission?: Yes Plan: Continue supplemental O2 (3) Pulmonary fibrosis Is this a current diagnosis for this admission?: Yes Plan: This seems to be the primary issue. We got him on prednisone because he says it makes him feel better even though with pulmonary fibrosis steroids tend not to help very much. We will have case management and social work come to see him because he may need placement and of [place] assisted living. Physical therapy evaluation has been ordered and is pending. - Time Time Spent with patient: 15-24 minutes
[2019-07-31 16:54] LABS: APPEARANCE,URINE CLEAR; BILIRUBIN,URINE NEGATIVE (NEGATIVE); COLOR,URINE YELLOW; GLUCOSE, URINE NEGATIVE (NEGATIVE); KETONES,URINE NEGATIVE (NEGATIVE); LEUKOCYTE ESTERASE,URINE NEGATIVE (NEGATIVE); NITRITE,URINE NEGATIVE (NEGATIVE); PROTEIN,URINE NEGATIVE (NEGATIVE); URINE SPECIFIC GRAVITY 1.009
--- NOTE | 2019-07-31 19:20 | Progress Note ---
Provider Note Provider Note: CARDIOLOGY PROGRESS NOTE by Dr. Kierra Milligan on 07/31/2019. SUBJECTIVE: The patient has no chest pain or discomfort. His breathing is back to baseline but still has shortness breath with minimal exertion. Patient is awaiting placement in the [place] rehab facility. The patient denies any PND orthopnea. There is no TIA CVA symptoms. Physical EXAMINATION: The patient is a frail build. He appears to be chronically ill. Selected Entries 07/31/19 15:57 Temperature 97.7 F Temperature Oral Source Pulse Rate 85 Respiratory 20 Rate Blood Pressure 102/68 Blood Pressure 79 Mean BP Location Right Arm BP Position Sitting O2 Sat by Pulse 99 Oximetry Oxygen Flow 3.00 Rate Oxygen Delivery Nasal Cannula Method HEAD: Head is atraumatic and normocephalic. EYES: Pupils are equal round regular reactive to light accommodation. Extraocular movements are normal, t here is no conjunctival pallor, and no scleral icterus. EARS: Tympanic membranes are intact external auditory canals are clear. NOSE: There is no inflammation of the nasal mucous membrane there is no deviated nasal septum. MOUTH: Mucous membranes of mouth and tongue are moist, there is no ulcers in the mouth or tongue, and no bleeding from the gums. THROAT: There is no redness of the oropharynx, no exudate seen. SKIN: There is no petechia or ecchymosis. There is no rashes or lesions.NECK: Supple. There is no JVD. Carotids are equal there is no bruit. There is no lymphadenopathy. There is no goiter. Trachea central LUNGS: There is diminished air entry and prolonged expiration. Clear to auscultation bilaterally, no wheezes, or rhonchi, except for dry respiratory rales bilaterally.. On percussion there is hyperresonance although there is no chest wall tenderness HEART: S1 and S2 are heard. S1 is of normal intensity, there is no S3 or S4 gallops. There is a systolic murmur the left sternal border and the apex. There is no rub. ABDOMEN: Normoactive bowel sounds, soft, nontender, no masses, no rebound, no guarding. There is no hepatosplenomegaly. EXTREMITIES: Femorals are slightly diminished. There is no femoral bruits. Leg pulses are diminished. There is no pedal edema. There is no DVT or cellulitis. There is no cyanosis or clubbing. There is no calf tenderness. NEUROLOGICAL the patient is awake alert oriented 3 with no focal deficits. PSYCHIATRIC: The patient judgment and insight are intact his affect is normal. Labs- All tests 24 hr 07/31/19 07/31/19 07/31/19 03:36 16:07 16:30 WBC 8.7 RBC 4.97 Hgb 15.0 Hct 44.6 MCV 90 MCH 30.1 MCHC 33.5 RDW 15.7 H Plt Count 192 Magnesium 2.2 Urine Color YELLOW Urine Appearance CLEAR Urine pH 7.0 Ur Specific [place] 1.009 Urine Protein NEGATIVE Urine Glucose (UA) NEGATIVE Urine Ketones NEGATIVE Urine Blood NEGATIVE Urine Nitrite NEGATIVE Urine Bilirubin NEGATIVE Urine Urobilinogen 4.0 H Ur Leukocyte Esterase NEGATIVE Urine WBC (Auto) 0 Urine RBC (Auto) 1 Urine Mucus (Auto) RARE Urine Ascorbic Acid NEGATIVE Chest X-Ray 07/26/19 12:23 IMPRESSION: CHRONIC CHANGES. ELEVATED RIGHT HEMIDIAPHRAGM. EXTENSIVE CHRONIC INTERSTITIAL SCARRING. PROBABLY LITTLE CHANGE FROM PRIOR STUDIES. CANNOT EXCLUDE AN EARLY INFILTRATE. Cardiac Imaging Nuclear Medicine 07/28/19 12:00 IMPRESSION: Grade 2 myocardial uptake. This is suggestive of myocardial infarction. IMPRESSION/RECOMMENDATION: 1. NSTEMI: Elevated CPK CPK-MB and troponin I. The patient's technetium pyrophosphate scan was positive for myocardial infarction. Hence this is an non-ST elevation [place]. Note with the lack of symptoms of chest pain, and the patient's advanced restriction for fibrosis which makes him an noncandidate for coronary artery bypass graft surgery, unless the patient has intractable anginal symptoms would not recommend cardiac catheterization at present. Would also recommend getting up pulmonary CT angiogram to make sure that the patient does not have pulmonary embolism. This is less likely since with the patient's already severely compromised lung pathology a insult added to it in the form of pulmonary embolism the patient would tolerate and the results will be catastrophic. The patient on DVT prophylaxis dose of Lovenox. We will continue Ranexa and aspirin. 2. Possible pneumonia/infiltrate: Recommend IV antibiotics. 3. Interstitial fibrosis: Continue oxygen and intensify steroid treatment. Patient continues to have significant shortness of breath. Would recommend pulmonary consult. Patient sees Dr. Haque as an outpatient. 4. COPD: End-stage: Continue oxygen and intensify anti-COPD treatment. 5. Hypertension: Possibly steroid-induced and at present seems to be controlled with diet alone. Medications reviewed. Management plan discussed with the attending physician. Cardiac status is stable. Medical decision making is of moderate complexity. 40 minutes spent on this patient with more than 50% of time spent in direct patient care. Cardiac status stable will sign off as discussed with attending physician.
[2019-08-01] MEDS: ASPIRIN 81 MG TABLET, ENT COATED PO SCH (11:38)
[2019-08-01] MEDS: RANOLAZINE 500 MG TAB.SR.12H PO SCH ×2 (11:39→22:14)
[2019-08-01] MEDS: PREDNISONE 20 MG TABLET PO SCH (11:39)
[2019-08-01] MEDS: ENOXAPARIN SODIUM INJ 40 MG/0.4 ML DISP.SYRIN SUBCUT SCH (11:39)
[2019-08-01] MEDS: MONTELUKAST SODIUM 10 MG TABLET PO SCH (11:39)
--- NOTE | 2019-08-01 16:08 | PDOC PROGRESS REPORT ---
Subjective Progress Note for:: 08/01/19 Subjective:: No adverse events overnight. No new complaints. Vital signs been stable. Breathing is at baseline. No chest pain. Reason For Visit: NSTEMI Physical Exam Vital Signs: Temp Pulse Resp BP Pulse Ox 98.0 F 64 18 112/70 98 08/01/19 12:00 08/01/19 12:00 08/01/19 12:00 08/01/19 12:00 08/01/19 12:00 Intake & Output 07/31/19 08/01/19 08/02/19 06:59 06:59 06:59 Intake Total 1260 1318 Output Total 100 1250 Balance 1160 68 Weight 64.6 kg 64.8 kg 64.8 kg General appearance: PRESENT: no acute distress, cooperative, disheveled Respiratory exam: PRESENT: accessory muscle use, rhonchi, symmetrical, other - Increased AP chest diameter. ABSENT: chest wall tenderness, clear to ausculta tion dmitri, decreased breath sounds, prolonged expiratory phas, tachypnea, unlabored, wheezes Cardiovascular exam: PRESENT: RRR, +S1, +S2 Pulses: PRESENT: normal carotid pulses Vascular exam: PRESENT: normal capillary refill GI/Abdominal exam: PRESENT: normal bowel sounds, soft. ABSENT: distended, gu arding, rebound, tenderness Extremities exam: ABSENT: clubbing, pedal edema Musculoskeletal exam: PRESENT: normal inspection. ABSENT: deformity Neurological exam: PRESENT: alert, awake, oriented to person, oriented to place, oriented to time, oriented to situation Psychiatric exam: PRESENT: appropriate affect, normal mood Skin exam: PRESENT: dry, warm Results Laboratory Results: 07/31/19 03:36 07/26/19 11:41 07/31/19 07/31/19 16:07 16:30 Magnesium 2.2 Urine Color YELLOW Urine Appearance CLEAR Urine pH 7.0 Ur Specific [place] 1.009 Urine Protein NEGATIVE Urine Glucose (UA) NEGATIVE Urine Ketones NEGATIVE Urine Blood NEGATIVE Urine Nitrite NEGATIVE Ur Leukocyte Esterase NEGATIVE Urine WBC (Auto) 0 Urine RBC (Auto) 1 07/26/19 07/26/19 07/26/19 11:41 11:41 11:41 Creatine Kinase 589 H CK-MB (CK-2) 23.20 H Troponin I 0.157 NT-Pro-B Natriuret Pep 210 07/26/19 07/26/1907/27/19 17:45 21:55 03:58 Creatine Kinase CK-MB (CK-2) 18.20 H 17.30 H 15.10 H Troponin I 0.112 0.114 0.131 NT-Pro-B Natriuret Pep Impressions: Chest X-Ray 07/26/19 12:23 IMPRESSION: CHRONIC CHANGES. ELEVATED RIGHT HEMIDIAPHRAGM. EXTENSIVE CHRONIC INTERSTITIAL SCARRING. PROBABLY LITTLE CHANGE FROM PRIOR STUDIES. CANNOT EXCLUDE AN EARLY INFILTRATE. Cardiac Imaging Nuclear Medicine 07/28/19 12:00 IMPRESSION: Grade 2 myocardial uptake. This is suggestive of myocardial infarction. Assessment and Plan - Diagnosis (1) NSTEMI (non-ST elevated myocardial infarction) Is this a current diagnosis for this admission?: Yes Plan: He is on aspirin and statin. His Lovenox been discontinued. The technetium scan showed that he did have an infarct but it was felt that further evaluation this patient would not be useful unless he begins to display symptoms, and he is never really complained of any chest pain. Says his breathing has been pro gressively getting worse but did not acutely get worse at any point. (2) Chronic respiratory failure with hypoxia Is this a current diagnosis for this admission?: Yes Plan: Continue supplemental O2 (3) Pulmonary fibrosis Is this a current diagnosis for this admission?: Yes Plan: This seems to be the primary issue. We got him on prednisone because he says it makes him feel better even though with pulmonary fibrosis steroids tend not to help very much. We will have case management and social work come to see him because [facility] - Time Time Spent with patient: 15-24 minutes
[2019-08-02] MEDS: MONTELUKAST SODIUM 10 MG TABLET PO SCH (10:00)
[2019-08-02] MEDS: RANOLAZINE 500 MG TAB.SR.12H PO SCH ×2 (10:00→21:29)
[2019-08-02] MEDS: PREDNISONE 20 MG TABLET PO SCH (10:00)
[2019-08-02] MEDS: ENOXAPARIN SODIUM INJ 40 MG/0.4 ML DISP.SYRIN SUBCUT SCH (10:00)
[2019-08-02] MEDS: ASPIRIN 81 MG TABLET, ENT COATED PO SCH (10:00)
--- NOTE | 2019-08-02 14:54 | PDOC PROGRESS REPORT ---
Subjective Progress Note for:: 08/02/19 Subjective:: No adverse events overnight. No new complaints. Vital signs been stable. Breathing is at baseline. No chest pain. Reason For Visit: NSTEMI Physical Exam Vital Signs: Temp Pulse Resp BP Pulse Ox 97.6 F 85 17 112/65 97 08/02/19 11:21 08/02/19 11:21 08/02/19 11:21 08/02/19 11:21 08/02/19 11:21 Intake & Output 08/01/19 08/02/19 08/03/19 06:59 06:59 06:59 Intake Total 1318 840 120 Output Total 1250 300 Balance 68 540 120 Weight 64.8 kg 66 kg General appearance: PRESENT: no acute distress, cooperative, disheveled Respiratory exam: PRESENT: accessory muscle use, rhonchi, symmetrical, other - Increased AP chest diameter. ABSENT: chest wall tenderness, clear to auscultation dmitri, decreased breath sounds, prolonged expiratory phas, tachypnea, unlabored, wheezes Cardiovascular exam: PRESENT: RRR, +S1, +S2 Pulses: PRESENT: normal carotid pulses Vascular exam: PRESENT: normal capillary refill GI/Abdominal exam: PRESENT: normal bowel sounds, soft. ABSENT: distended, guarding, rebound, tenderness Extremities exam: ABSENT: clubbing, pedal edema Musculoskeletal exam: PRESENT: normal inspection. ABSENT: deformity Neurological exam: PRESENT: alert, awake, oriented to person, oriented to place, oriented to time, oriented to situation Psychiatric exam: PRESENT: appropriate affect, normal mood Skin exam: PRESENT: dry, warm Results Laboratory Results: 07/31/19 03:36 07/26/19 11:41 07/26/19 07/26/19 07/26/19 11:41 11:41 11:41 Creatine Kinase 589 H CK-MB (CK-2) 23.20 H Troponin I 0.157 NT-Pro-B Natriuret Pep 210 07/26/19 07/26/19 07/27/19 17:45 21:55 03:58 Creatine Kinase CK-MB (CK-2) 18.20 H 17.30 H 15.10 H Troponin I 0.112 0.114 0.131 NT-Pro-B Natriuret Pep Impressions: Chest X-Ray 07/26/19 12:23 IMPRESSION: CHRONIC CHANGES. ELEVATED RIGHT HEMIDIAPHRAGM. EXTENSIVE CHRONIC INTERSTITIAL SCARRING. PROBABLY LITTLE CHANGE FROM PRIOR STUDIES. CANNOT EXCLUDE AN EARLY INFILTRATE. Cardiac Imaging Nuclear Medicine 07/28/19 12:00 IMPRESSION: Grade 2 myocardial uptake. This is suggestive of myocardial infarction. Assessment and Plan - Diagnosis (1) NSTEMI (non-ST elevated myocardial infarction) Is this a current diagnosis for this admission?: Yes Plan: He is on aspirin and statin. His Lovenox been discontinued. The technetium scan showed that he did have an infarct but it was felt that further evaluation this patient would not be useful unless he begins to display symptoms, and he is never really complained of any chest pain. Says his breathing has been progressively getting worse but did not acutely get worse at any point. This is now resolved. (2) Chronic respiratory failure with hypoxia Is this a current diagnosis for this admission?: Yes Plan: Continue supplemental O2 (3) Pulmonary fibrosis Is this a current diagnosis for this admission?: Yes Plan: This seems to be the primary issue. We got him on prednisone because he says it makes him feel better even though with pulmonary fibrosis steroids tend not to help very much. We will have case management and social work come to see him because [facility] may need [facility]. - Time Time Spent with patient: 15-24 minutes
[2019-08-03 05:17] LABS: HEMATOCRIT 43.7 % (37.9-51.0); HEMOGLOBIN 14.7 g/dL (13.5-17.0); MEAN CORPUSCULAR HEMOGLOBIN 30.1 pg (27.0-33.4); MEAN CORPUSCULAR HGB CONC 33.7 g/dL (32.0-36.0); MEAN CORPUSCULAR VOLUME 89 fl (80-97); PLATELET COUNT 180 10^3/uL (150-450); RED BLOOD COUNT 4.89 10^6/uL (4.35-5.55); RED CELL DISTRIBUTION WIDTH 15.3 % (11.5-14.0); WHITE BLOOD COUNT 10.1 10^3/uL (4.0-10.5)
[2019-08-03 09:11] LABS: APPEARANCE,URINE CLEAR; BILIRUBIN,URINE SMALL (NEGATIVE); COLOR,URINE YELLOW; GLUCOSE, URINE NEGATIVE (NEGATIVE); KETONES,URINE NEGATIVE (NEGATIVE); LEUKOCYTE ESTERASE,URINE NEGATIVE (NEGATIVE); NITRITE,URINE NEGATIVE (NEGATIVE); PROTEIN,URINE 30 mg/dL (NEGATIVE); URINE SPECIFIC GRAVITY 1.026
[2019-08-03] MEDS: ENOXAPARIN SODIUM INJ 40 MG/0.4 ML DISP.SYRIN SUBCUT SCH (09:24)
[2019-08-03] MEDS: RANOLAZINE 500 MG TAB.SR.12H PO SCH ×2 (09:25→22:05)
[2019-08-03] MEDS: MONTELUKAST SODIUM 10 MG TABLET PO SCH (09:26)
[2019-08-03] MEDS: ASPIRIN 81 MG TABLET, ENT COATED PO SCH (09:26)
[2019-08-03] MEDS: PREDNISONE 20 MG TABLET PO SCH (09:26)
--- NOTE | 2019-08-03 16:54 | PDOC PROGRESS REPORT ---
Subjective Progress Note for:: 08/03/19 Subjective:: No adverse events overnight. No new complaints. Vital signs been stable. Breathing is at baseline. No chest pain. Reason For Visit: NSTEMI Physical Exam Vital Signs: Temp Pulse Resp BP Pulse Ox 97.4 F 77 17 108/60 97 08/03/19 15:34 08/03/19 15:34 08/03/19 15:34 08/03/19 15:34 08/03/19 15:34 Intake & Output 08/02/19 08/03/19 08/04/19 06:59 06:59 06:59 Intake Total 840 582 476 Output Total 300 450 Balance 540 132 476 Weight 66 kg 65.4 kg General appearance: PRESENT: no acute distress, cooperative, disheveled Respiratory exam: PRESENT: accessory muscle use, rhonchi, symmetrical, other - Increased AP chest diameter. ABSENT: chest wall tenderness, clear to auscultation dmitri, decreased breath sounds, prolonged expiratory phas, tachypnea, unlabored, wheezes Cardiovascular exam: PRESENT: RRR, +S1, +S2 Pulses: PRESENT: normal carotid pulses Vascular exam: PRESENT: normal capillary refill GI/Abdominal exam: PRESENT: normal bowel sounds, soft. ABSENT: distended, guarding, rebound, tenderness Extremities exam: ABSENT: clubbing, pedal edema Musculoskeletal exam: PRESENT: normal inspection. ABSENT: deformity Neurological exam: PRESENT: alert, awake, oriented to person, oriented to place, oriented to time, oriented to situation Psychiatric exam: PRESENT: appropriate affect, normal mood Skin exam: PRESENT: dry, warm Results Laboratory Results: 08/03/19 04:50 07/26/19 11:41 08/03/19 08/03/19 04:50 08:54 WBC 10.1 RBC 4.89 Hgb 14.7 Hct 43.7 MCV 89 MCH 30.1 MCHC 33.7 RDW 15.3 H Plt Count 180 Urine Color YELLOW Urine Appearance CLEAR Urine pH 6.0 Ur Specific [place] 1.026 Urine Protein 30 H Urine Glucose (UA) NEGATIVE Urine Ketones NEGATIVE Urine Blood NEGATIVE Urine Nitrite NEGATIVE Ur Leukocyte Esterase NEGATIVE Urine WBC (Auto) 1 Urine RBC (Auto) 2 07/26/19 07/26/19 07/26/19 11:41 11:41 11:41 Creatine Kinase 589 H CK-MB (CK-2) 23.20 H Troponin I 0.157 NT-Pro-B Natriuret Pep 210 07/26/19 07/26/19 07/27/19 17:45 21:55 03:58 Creatine Kinase CK-MB (CK-2) 18.20 H 17.30 H 15.10 H Troponin I 0.112 0.114 0.131 NT-Pro-B Natriuret Pep Impressions: Chest X-Ray 07/26/19 12:23 IMPRESSION: CHRONIC CHANGES. ELEVATED RIGHT HEMIDIAPHRAGM. EXTENSIVE CHRONIC INTERSTITIAL SCARRING. PROBABLY LITTLE CHANGE FROM PRIOR STUDIES. CANNOT EXCLUDE AN EARLY INFILTRATE. Cardiac Imaging Nuclear Medicine 07/28/19 12:00 IMPRESSION: Grade 2 myocardial uptake. This is suggestive of myocardial infarction. Assessment and Plan - Diagnosis (1) NSTEMI (non-ST elevated myocardial infarction) Is this a current diagnosis for this admission?: Yes Plan: He is on aspirin and statin. His Lovenox been discontinued. The technetium scan showed that he did have an infarct but it was felt that further evaluation this patient would not be useful unless he begins to display symptoms, and he is never really complained of any chest pain. This is now resolved. (2) Chronic respiratory failure with hypoxia Is this a current diagnosis for this admission?: Yes Plan: Continue supplemental O2 (3) Pulmonary fibrosis Is this a current diagnosis for this admission?: Yes Plan: This seems to be the primary issue. We got him on prednisone because he says it makes him feel better even though with pulmonary fibrosis steroids tend not to help very much. We will have case management and social work come to see him because he may need placement and of [place] assisted living. - Time Time Spent with patient: 15-24 minutes
[2019-08-04] MEDS: PREDNISONE 20 MG TABLET PO SCH (10:09)
[2019-08-04] MEDS: ASPIRIN 81 MG TABLET, ENT COATED PO SCH (10:09)
[2019-08-04] MEDS: RANOLAZINE 500 MG TAB.SR.12H PO SCH ×2 (10:09→21:11)
[2019-08-04] MEDS: MONTELUKAST SODIUM 10 MG TABLET PO SCH (10:09)
[2019-08-04] MEDS: ENOXAPARIN SODIUM INJ 40 MG/0.4 ML DISP.SYRIN SUBCUT SCH (10:10)
--- NOTE | 2019-08-04 13:22 | PDOC PROGRESS REPORT ---
Subjective Progress Note for:: 08/04/19 Subjective:: The patient is resting in bed. He was quite loud during our discussion. He almost seemed somewhat defensive. He had an ill fitting toupee in place. Reason For Visit: NSTEMI Shortness of breath from pulmonary fibrosis Physical Exam Vital Signs: Temp Pulse Resp BP Pulse Ox 98.1 F 76 18 102/67 100 08/04/19 11:17 08/04/19 11:17 08/04/19 11:17 08/04/19 11:17 08/04/19 11:17 Intake & Output 08/03/19 08/04/19 08/05/19 06:59 06:59 06:59 Intake Total 582 2279 Output Total 450 1450 Balance 132 829 Weight 65.4 kg 64.8 kg General appearance: PRESENT: no acute distress, cooperative, well-developed Head exam: PRESENT: atraumatic, normocephalic, other - Poorly fitting toupee Ear exam: PRESENT: normal external ear exam. ABSENT: bleeding, drainage Mouth exam: PRESENT: dry mucosa, tongue midline Respiratory exam: PRESENT: rales - Bilaterally, symmetrical, unlabored. ABSENT: rhonchi, tachypnea, wheezes Cardiovascular exam: PRESENT: RRR, +S1, +S2 Pulses: PRESENT: normal radial pulses, +1 pedal pulses bilateral GI/Abdominal exam: PRESENT: normal bowel sounds, soft. ABSENT: distended, guarding, tenderness Rectal exam: PRESENT: deferred Extremities exam: ABSENT: joint swelling, pedal edema Musculoskeletal exam: PRESENT: normal inspection Neurological exam: PRESENT: alert, awake, oriented to person, oriented to place, oriented to situation Psychiatric exam: PRESENT: anxious, unusual affect - Speaking very loudly and was almost defensive. ABSENT: agitated Focused psych exam: PRESENT: other - As above. ABSENT: delusional, restlessness Skin exam: PRESENT: dry, normal color, warm Results Laboratory Results: 08/03/19 04:50 07/26/19 11:41 07/26/19 07/26/19 07/26/19 11:41 11:41 11:41 Creatine Kinase 589 H CK-MB (CK-2) 23.20 H Troponin I 0.157 NT-Pro-B Natriuret Pep 210 07/26/19 07/26/19 07/27/19 17:45 21:55 03:58 Creatine Kinase CK-MB (CK-2) 18.20 H 17.30 H 15.10 H Troponin I 0.112 0.114 0.131 NT-Pro-B Natriuret Pep Impressions: Chest X-Ray 07/26/19 12:23 IMPRESSION: CHRONIC CHANGES. ELEVATED RIGHT HEMIDIAPHRAGM. EXTENSIVE CHRONIC INTERSTITIAL SCARRING. PROBABLY LITTLE CHANGE FROM PRIOR STUDIES. CANNOT EXCLUDE AN EARLY INFILTRATE. Cardiac Imaging Nuclear Medicine 07/28/19 12:00 IMPRESSION: Grade 2 myocardial uptake. This is suggestive of myocardial infarction. Assessment and Plan - Diagnosis (1) NSTEMI (non-ST elevated myocardial infarction) Is this a current diagnosis for this admission?: Yes Plan: 08/04/2019-the patient's troponin seems to have leveled out although they have not returned to normal. The Cardiolite stress test showed ischemia consistent with an infarct. The patient will continue on Ranexa, aspirin and I have added statin therapy. Non-ST elevation myocardial infarction is resolved. Will suggest follow-up with cardiology as an outpatient. (2) Chronic respiratory failure with hypoxia Is this a current diagnosis for this admission?: Yes Plan: 08/04/2019-the patient is on supplemental oxygen. He in fact is on a slightly lower rate than at home. Pulmonary fibrosis is the cause of the respiratory failure and unfortunately pulmonary fibrosis will not improve. The patient states that he feels better with the prednisone but I believe this is not due to any direct effect on the pulmonary fibrosis. I will decrease the dose as long- term therapy with corticosteroids is fraught with problems (3) Pulmonary fibrosis Is this a current diagnosis for this admission?: Yes Plan: 08/04/2019-unfortunately the pulmonary fibrosis is chronic and progressive. I will spend some time with the patient to try to explain this. He understands the need to keep his oxygen flow rate as low as possible but to provide oxygen saturation of 90 to 94%. He understands that increased oxygen will increase his PCO2 and that this is not good for him. Because of the chronic progressive nature of the pulmonary fibrosis I do not believe pulmonary rehab would be effective. (4) Weakness Is this a current diagnosis for this admission?: Yes Plan: 08/04/2019-from his chronic progressive pulmonary fibrosis and acute non-ST elevation myocardial infarction the patient is quite weak. Physical therapy is working with the patient. Case management reported that the [place] has approved him for half-way for ongoing physical therapy - Time Time Spent with patient: 25-34 minutes Anticipated discharge: SNF Within: within 48 hours
[2019-08-04] MEDS: ATORVASTATIN CALCIUM 20 MG TABLET PO SCH (21:11)
[2019-08-05 08:41] LABS: HEMATOCRIT 44.6 % (37.9-51.0); MEAN CORPUSCULAR HEMOGLOBIN 30.1 pg (27.0-33.4); MEAN CORPUSCULAR HGB CONC 33.8 g/dL (32.0-36.0); MEAN CORPUSCULAR VOLUME 89 fl (80-97); PLATELET COUNT 177 10^3/uL (150-450); RED BLOOD COUNT 4.99 10^6/uL (4.35-5.55); RED CELL DISTRIBUTION WIDTH 15.4 % (11.5-14.0); WHITE BLOOD COUNT 11.8 10^3/uL (4.0-10.5)
[2019-08-05 09:06] LABS: ANION GAP 11 (5-19); BLOOD UREA NITROGEN 21 mg/dL (7-20); CALCIUM 9.4 mg/dL (8.4-10.2); CARBON DIOXIDE 29 mmol/L (22-30); CHLORIDE 96 mmol/L (98-107); GLUCOSE 81 mg/dL (75-110); POTASSIUM 3.8 mmol/L (3.6-5.0)
[2019-08-05] MEDS: PREDNISONE 20 MG TABLET PO SCH (10:06)
[2019-08-05] MEDS: ENOXAPARIN SODIUM INJ 40 MG/0.4 ML DISP.SYRIN SUBCUT SCH (10:06)
[2019-08-05] MEDS: MONTELUKAST SODIUM 10 MG TABLET PO SCH (10:06)
[2019-08-05] MEDS: ASPIRIN 81 MG TABLET, ENT COATED PO SCH (10:06)
[2019-08-05] MEDS: RANOLAZINE 500 MG TAB.SR.12H PO SCH ×2 (10:06→23:02)
--- NOTE | 2019-08-05 13:46 | PDOC TRANSFER SUMMARY ---
Impression - Admit/DC Date/PCP Admission Date/Primary Care Provider: 07/26/19 16:25 [facility] Discharge Date: 08/06/19 - Discharge Diagnosis (1) NSTEMI (non-ST elevated myocardial infarction) Is this a current diagnosis for this admission?: Yes (2) Chronic respiratory failure with hypoxia Is this a current diagnosis for this admission?: Yes (3) Pulmonary fibrosis Is this a current diagnosis for this admission?: Yes (4) Weakness Is this a current diagnosis for this admission?: Yes - Additional Information Resuscitation Status: Full Code Referrals: [facility] [Primary Care Provider] - 08/10/19 11:30 am Home Medications: Montelukast Sodium [Singulair 10 mg Tablet] 10 mg PO DAILY 07/26/19 Aspirin [Ecotrin 81 mg EC Tablet] 81 mg PO DAILY tabec 08/06/19 Atorvastatin Calcium [Lipitor 20 mg Tablet] 20 mg PO QHS tablet 08/06/19 Prednisone [Deltasone 20 mg Tablet] 10 mg PO DAILY tablet 08/06/19 Ranolazine [Ranexa 500 mg Tab.sr] 500 mg PO Q12 tab.sr.12h 08/06/19 History of Present Illiness History of Present Illness: ALBA MARCANO is a 74 year old male with a significant history of tobacco use and pulmonary fibrosis. He is oxygen dependent. He presented to the hospital with reports of worsening dyspnea with minimal exertion. He reports that it is different from his baseline. At baseline he gets more short of breath with brantley ited physical exertion but he feels this is very different. In the emergency department he was found to have an elevated troponin and was referred to the hospitalist service for admission Hospital Course Hospital Course: Patient had an unremarkable hospital course. He recovered from his non-ST elevation myocardial infarction. His pulmonary fibrosis is fairly advanced and in fact he does require 3 to 4 L of continuous nasal cannula oxygen. He is still quite weak from his acute illness and will be discharging to a skilled facility for ongoing physical therapy. Physical Exam Vital Signs: Temp Pulse Resp BP Pulse Ox 97.3 F 69 18 116/74 99 08/05/19 00:00 08/05/19 07:00 08/05/19 00:00 08/05/19 00:00 08/05/19 00:00 Intake & Output 08/04/19 08/05/19 08/06/19 06:59 06:59 06:59 Intake Total 9 2009 Output Total 1450 900 Balance 829 1110 Weight 64.8 kg 65.2 kg General appearance: PRESENT: no acute distress, cooperative, well-developed Head exam: PRESENT: atraumatic, normocephalic Eye exam: PRESENT: conjunctiva pink. ABSENT: scleral icterus Ear exam: PRESENT: normal external ear exam. ABSENT: bleeding, drainage Mouth exam: PRESENT: moist, tongue midline Respiratory exam: PRESENT: clear to auscultation dmitri, symmetrical, unlabored. ABSENT: rales, rhonchi, tachypnea, wheezes Cardiovascular exam: PRESENT: RRR, +S1, +S2. ABSENT: diastolic murmur, systolic murmur GI/Abdominal exam: PRESENT: normal bowel sounds, soft. ABSENT: distended, guarding, tenderness Extremities exam: PRESENT: full ROM. ABSENT: calf tenderness, joint swelling, pedal edema Musculoskeletal exam: PRESENT: ambulatory, normal inspection Neurological exam: PRESENT: alert, altered, oriented to person, oriented to place, oriented to time, oriented to situation, CN II-XII grossly intact Psychiatric exam: PRESENT: appropriate affect, normal mood. ABSENT: agitated, anxious Focused psych exam: ABSENT: delusional, restlessness Results Laboratory Results: WBC 11.8 10^3/uL (4.0-10.5) H 08/05/19 08:02 RBC 4.99 10^6/uL (4.35-5.55) 08/05/19 08:02 Hgb 15.0 g/dL (13.5-17.0) 08/05/19 08:02 Hct 44.6 % (37.9-51.0) 08/05/19 08:02 MCV 89 fl (80-97) 08/05/19 08:02 MCH 30.1 pg (27.0-33.4) 08/05/19 08:02 MCHC 33.8 g/dL (32.0-36.0) 08/05/19 08:02 RDW 15.4 % (11.5-14.0) H 08/05/19 08:02 Plt Count 177 10^3/uL (150-450) 08/05/19 08:02 Lymph % (Auto) Not Reportable 07/26/19 11:41 [place] % (Auto) Not Reportable 07/26/19 11:41 Eos % (Auto) Not Reportable 07/26/19 11:41 Baso % (Auto) Not Reportable 07/26/19 11:41 Absolute Neuts (auto) Not Reportable 07/26/19 11:41 Absolute Lymphs (auto) Not Reportable 07/26/19 11:41 Absolute Monos (auto) Not Reportable 07/26/19 11:41 Absolute Eos (auto) Not Reportable 07/26/19 11:41 Absolute Basos (auto) Not Reportable 07/26/19 11:41 Total Counted 100 07/26/19 11:41 Seg Neutrophils % Not Reportable 07/26/19 11:41 Seg Neuts % (Manual) 89 % (42-78) H 07/26/19 11:41 Lymphocytes % (Manual) 3 % (13-45) L 07/26/19 11:41 Monocytes % (Manual) 7 % (3-13) 07/26/19 11:41 Eosinophils % (Manual) 1 % (0-6) 07/26/19 11:41 Basophils % (Manual) 0 % (0-2) 07/26/19 11:41 Abs Neuts (Manual) 11.3 10^3/uL (1.7-8.2) H 07/26/19 11:41 Abs Lymphs (Manual) 0.4 10^3/uL (0.5-4.7) L 07/26/19 11:41 Abs Monocytes (Manual) 0.9 10^3/uL (0.1-1.4) 07/26/19 11:41 Absolute Eos (Manual) 0.1 10^3/uL (0.0-0.6) 07/26/19 11:41 Abs Basophils (Manual) 0.0 10^3/uL (0.0-0.2) 07/26/19 11:41 Clumped Platelets PRESENT 07/26/19 11:41 Platelet Comment ADEQUATE 07/26/19 11:41 Anisocytosis 1+ 07/26/19 11:41 PT 13.7 SEC (11.4-15.4) 07/26/19 17:45 INR 1.05 07/26/19 17:45 APTT 29.6 SEC (23.5-35.8) 07/26/19 17:45 Sodium 135.5 mmol/L (137-145) L 08/05/19 08:02 Potassium 3.8 mmol/L (3.6-5.0) 08/05/19 08:02 Chloride 96 mmol/L (98-107) L 08/05/19 08:02 Carbon Dioxide 29 mmol/L (22-30) 08/05/19 08:02 Anion Gap 11 (5-19) 08/05/19 08:02 BUN 21 mg/dL (7-20) H 08/05/19 08:02 Creatinine 0.73 mg/dL (0.52-1.25) 08/05/19 08:02 Est GFR ( Amer) > 60 (>60) 08/05/19 08:02 Est GFR (MDRD) Non-Af > 60 (>60) 08/05/19 08:02 Glucose 81 mg/dL (75-110) 08/05/19 08:02 Calcium 9.4 mg/dL (8.4-10.2) 08/05/19 08:02 Magnesium 2.2 mg/dL (1.6-2.3) 08/05/19 08:02 Total Bilirubin 0.7 mg/dL (0.2-1.3) 07/26/19 11:41 Direct Bilirubin 0.2 mg/dL (0.0-0.4) 07/26/19 11:41 Neonat Total Bilirubin Not Reportable 07/26/19 11:41 Neonat Direct Bilirubin Not Reportable 07/26/19 11:41 Neonat Indirect Bili Not Reportable 07/26/19 11:41 AST 63 U/L (17-59) H 07/26/19 11:41 ALT 58 U/L (<50) 07/26/19 11:41 Alkaline Phosphatase 97 U/L (38-126) 07/26/19 11:41 Creatine Kinase 589 U/L (55-170) H 07/26/19 11:41 CK-MB (CK-2) 15.10 ng/mL (<4.55) H 07/27/19 03:58 Troponin I 0.131 ng/mL 07/27/19 03:58 NT-Pro-B Natriuret Pep 210 pg/mL (5-900) 07/26/19 11:41 Total Protein 8.1 g/dL (6.3-8.2) 07/26/19 11:41 Albumin 4.0 g/dL (3.5-5.0) 07/26/19 11:41 Lipase 85.2 U/L (23-300) 07/26/19 11:41 Urine Color YELLOW 08/03/19 08:54 Urine Appearance CLEAR 08/03/19 08:54 Urine pH 6.0 (5.0-9.0) 08/03/19 08:54 Ur Specific [place] 1.026 08/03/19 08:54 Urine Protein 30 mg/dL (NEGATIVE) H 08/03/19 08:54 Urine Glucose (UA) NEGATIVE mg/dL (NEGATIVE) 08/03/19 08:54 Urine Ketones NEGATIVE mg/dL (NEGATIVE) 08/03/19 08:54 Urine Blood NEGATIVE (NEGATIVE) 08/03/19 08:54 Urine Nitrite NEGATIVE (NEGATIVE) 08/03/19 08:54 Urine Bilirubin SMALL (NEGATIVE) H 08/03/19 08:54 Urine Urobilinogen 4.0 mg/dL (<2.0) H 08/03/19 08:54 Ur Leukocyte Esterase NEGATIVE (NEGATIVE) 08/03/19 08:54 Urine WBC (Auto) 1 /HPF 08/03/19 08:54 Urine RBC (Auto) 2 /HPF 08/03/19 08:54 Squamous Epi Cells Auto <1 /HPF 07/27/19 10:00 Urine Mucus (Auto) OCC /LPF 08/03/19 08:54 Urine Ascorbic Acid NEGATIVE (NEGATIVE) 08/03/19 08:54 07/26/19 07/26/19 07/26/19 11:41 11:41 17:45 CK-MB (CK-2) 23.20 H 18.20 H Troponin I 0.157 0.112 NT-Pro-B Natriuret Pep 210 07/26/19 07/27/19 21:55 03:58 CK-MB (CK-2) 17.30 H 15.10 H Troponin I 0.114 0.131 NT-Pro-B Natriuret Pep Impressions: Chest X-Ray 07/26/19 12:23 IMPRESSION: CHRONIC CHANGES. ELEVATED RIGHT HEMIDIAPHRAGM. EXTENSIVE CHRONIC INTERSTITIAL SCARRING. PROBABLY LITTLE CHANGE FROM PRIOR STUDIES. CANNOT EXCLUDE AN EARLY INFILTRATE. Cardiac Imaging Nuclear Medicine 07/28/19 12:00 IMPRESSION: Grade 2 myocardial uptake. This is suggestive of myocardial infarction. 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
[2019-08-05] MEDS: ATORVASTATIN CALCIUM 20 MG TABLET PO SCH (23:02)
[2019-08-06 02:42] VITALS: BP 92/54
[2019-08-06] MEDS: PREDNISONE 20 MG TABLET PO SCH (10:03)
[2019-08-06] MEDS: ASPIRIN 81 MG TABLET, ENT COATED PO SCH (10:03)
[2019-08-06] MEDS: RANOLAZINE 500 MG TAB.SR.12H PO SCH (10:04)
[2019-08-06] MEDS: MONTELUKAST SODIUM 10 MG TABLET PO SCH (10:04)
[2019-08-06] MEDS: ENOXAPARIN SODIUM INJ 40 MG/0.4 ML DISP.SYRIN SUBCUT SCH (10:04)
== END 2019-08-06 11:50 | DRG 281 ==
LOC: ER 12:00 → EH 15:46 → OBSVTOIN 16:25 → 4N 17:44
PROVIDERS: ADMIT Family Medicine; ATTEND Family Medicine
DX: I21.A1 Myocardial infarction type 2 (principal); J96.11 Chronic respiratory failure with hypoxia; I10 Essential (primary) hypertension; J44.9 Chronic obstructive pulmonary disease, unspecified; Z87.891 Personal history of nicotine dependence; Z82.49 Family history of ischemic heart disease and other diseases of the circulatory system; Z83.3 Family history of diabetes mellitus; J84.10 Pulmonary fibrosis, unspecified; Z99.81 Dependence on supplemental oxygen; Z77.098 Contact with and (suspected) exposure to other hazardous, chiefly nonmedicinal, chemicals; Z79.52 Long term (current) use of systemic steroids; Z23 Encounter for immunization
CPT/HCPCS: 36415; 71046; 78466; 80048; 80053; 81001; 82550; 82553; 83690; 83735; 83880; 84484; 85025; 85027; 85610; 85730; 90686; 93005; 93010; 93306; 96374; 96375; 99285; A9538; J1650; J2930; J3490; J7512; Q9969